=== PATIENT | female | born 1980 | race Caucasian/White ===

== ENCOUNTER 2016-10-12 14:42 | Emergency (ER) | payer OTHER ==
[2016-10-12 14:47] VITALS: BP 127/67; PULSE 81; RESP 20; TEMP 97.8
--- NOTE | 2016-10-12 15:28 | ED ---
General Adult HPI - General Chief complaint: Extremity Problem,Nontraumatic Stated complaint: Numbness in Right Wrist Time Seen by Provider: 10/12/16 15:18 Source: patient, RN notes reviewed Mode of arrival: ambulatory Limitations: no limitations - History of Present Illness Initial comments: This is a 35-year-old female presents with tingling to the fourth and fifth digits of the right hand. Patient states this started at 8:30 this morning. Patient states the pins and needles feeling continues to the ulnar aspect of the right wrist and elbow. Patient states she has been diagnosed with neuropathy and has a history of carpal tunnel but this is different than her normal symptoms. Patient denies any injury to the right upper extremity. Patient denies any headache, nausea/vomiting, dysphagia, dysphasia, head injury. Patient states she has chronic neck pain this is not worse today. Patient denies any recent fever, chills, shortness breath, chest pain, abdominal pain, nausea/vomiting/diarrhea, back pain, hematuria, headache, or visual changes, or any other complaints. - Related Data Home Medications Medication Instructions Recorded Confirmed FLUoxetine HCL [PROzac] 20 mg PO DAILY 03/12/15 12/16/15 hydrOXYzine PAMOATE [Vistaril] 50 mg PO HS 07/26/15 12/16/15 Previous Rx's Medication Instructions Recorded Lurasidone [Latuda] 40 mg PO 1800 #30 tab 11/27/15 traZODone HCL [Desyrel] 200 mg PO HS #60 tab 11/27/15 Ibuprofen [Motrin] 600 mg PO Q6HR PRN #30 tab 12/05/15 Amoxic-Pot Clav 875-125Mg 1 tab PO Q12HR #14 tablet 12/16/15 [Augmentin 875-125] predniSONE 20 mg PO DAILY 5 Days 10/12/16 Allergies Allergy/AdvReac Type Severity Reaction Status Date / Time No Known Allergies Allergy Verified 10/12/16 14:47 Review of Systems ROS Statement: Those systems with pertinent positive or pertinent negative responses have been documented in the HPI. ROS Other: All systems not noted in ROS Statement are negative. Past Medical History Past Medical History: Pulmonary Embolus (PE) Additional Past Medical History / Comment(s): PE, carpal tunnel, neuropathy History of Any Multi-Drug Resistant Organisms: None Reported Past Surgical History: Section, Cholecystectomy, Uterine Ablation Additional Past Surgical History / Comment(s): [place] filter, D&C Past Anesthesia/Blood Transfusion Reactions: No Reported Reaction Past Psychological History: Anxiety, Bipolar, Depression Additional Psychological History / Comment(s): Open with [facility] on an outpatient basis. Marcos, Therapist: Bertha FELDER. Today was patient's first visit. Patient does not know their names. Smoking Status: Current every day smoker Past Alcohol Use History: Occasional Past Drug Use History: None Reported General Exam - General Exam Comments Initial Comments: General: The patient is awake and alert, in no distress, and does not appear acutely ill. Eye: Pupils are equal, round and reactive to light, extra-ocular movements are intact. No nystagmus. There is normal conjunctiva bilaterally. No signs of icterus. Neck: The neck is supple, there is no tenderness or JVD. Cardiovascular: There is a regular rate and rhythm. No murmur, rub or gallop is appreciated. Respiratory: Lungs are clear to auscultation, respirations are non-labored, breath sounds are equal. No wheezes, stridor, rales, or rhonchi. Musculoskeletal: Patient has some exacerbation of the pins and needles feeling in the right fourth and fifth digits with palpation of the cubital tunnel of the right upper extremity. Patient has some tenderness to the medial aspect of the right elbow. Normal ROM, Strength 5/5. Sensation intact. Radial pulses equal bilaterally 2+. Cap refill is normal at less than 2 seconds. Neurological: A&O x 3. CN II-XII intact, There are no obvious motor or sensory deficits. Coordination appears grossly intact. Speech is normal. Skin: Skin is warm and dry and no rashes or lesions are noted. Psychiatric: Cooperative, appropriate mood & affect, normal judgment. Limitations: no limitations Course Vital Signs 10/12/16 14:44 Temperature 97.8 F Pulse Rate 81 Respiratory 20 Rate Blood Pressure 127/67 O2 Sat by Pulse 98 Oximetry Medical Decision Making - Medical Decision Making Is a 35-year-old female presents with the needles feeling to the fourth digits of the right hand. On physical exam patient is neurologically intact. Patient has some exacerbation of the pins and needles feeling in the right fourth and fifth digits with palpation of the cubital tunnel of the right upper extremity. Patient has some tenderness to the medial aspect of the right elbow. Normal ROM, Strength 5/5. Sensation intact. Radial pulses equal bilaterally 2+. Cap refill is normal at less than 2 seconds. Discussed cubital tunnel syndrome with patient. I discussed that patient will be on a short course of steroids. Discussed rest, ice and use of Tylenol and Motrin [id number] for pain. I discussed the patient should follow-up with orthopedics and her primary care physician in the next 1-2 days. Discussed that patient should return to the [facility] for any worsening symptoms or for any further concerns. I discussed return parameters. Patient was receptive to this plan and patient will be discharged home. Disposition Clinical Impression: Cubital tunnel syndrome on right Disposition: HOME SELF-CARE Condition: Good Instructions: Cubital Tunnel Syndrome (ED) Additional Instructions: Please use steroid as prescribed. Please rest, ice and use Tylenol and or Motrin as needed for any pain. Please follow-up with orthopedics and her primary care physician in the next 1-2 days or return to the [facility] for any worsening symptoms or for any further concerns. Prescriptions: predniSONE 20 mg PO DAILY 5 Days Referrals: Alex Babin MD [Primary Care Provider] - 1-2 days Larry Trivedi DO [Doctor of Osteopathic Medicine] - 1-2 days Time of Disposition: 15:51
== END 2016-10-12 15:56 | disposition home or self-care (01) ==
LOC: EC 14:42
DX: G56.21 Lesion of ulnar nerve, right upper limb (principal); M54.2 Cervicalgia; F31.9 Bipolar disorder, unspecified; F41.9 Anxiety disorder, unspecified; F17.200 Nicotine dependence, unspecified, uncomplicated; Z86.711 Personal history of pulmonary embolism; Z79.899 Other long term (current) drug therapy
CPT/HCPCS: 99283

== ENCOUNTER → 2016-10-16 | Outpatient (CLI) | payer OTHER ==
--- NOTE | 2016-10-16 14:49 | XR ---
EXAMINATION TYPE: XR knee limited RT DATE OF EXAM: 10/16/2016 2:45 PM COMPARISON: NONE HISTORY: Right knee pain TECHNIQUE: 2 views right knee FINDINGS: Minimal joint space narrowing is present. No acute fractures are evident. No significant ethel int effusion is evident. IMPRESSION: 1. Suggestion of minimal degenerative joint change.
--- NOTE | 2016-10-16 16:44 | MR ---
EXAMINATION TYPE: MR cervical spine wo con DATE OF EXAM ORDERED: 10/16/2016 4:04 PM HISTORY: M54.2 CERVICALGIA. TECHNOLOGIST HISTORY AT TIME OF EXAM: Neck pain, headaches, no trauma; prior x-rays 2015 on pacs COMPARISON: None. TECHNIQUE: Multiplanar, multiecho imaging of the cervical spine was obtained without contrast on a 1 .5 markos magnet. FINDINGS: Prevertebral soft tissues are normal. There is some loss of normal cervical lordosis which is replaced by mild kyphosis. Alignment is huyen l. Atlantoaxial relationships are normal. There is a normal craniocervical junction. Cord signal is normal. At C2-3 and C3-4, no definite abnormality is seen. At C4-C5, there is mild disc space loss. The intervertebral foramina are well maintained. There is a minimal, diffuse disc displacement. The facet and uncovertebral joints are normal. At C5-C6, there is mild disc space loss. The intervertebral foramina are well maintained. There is a diffuse disc displacement mildly deforming the thecal sac with cord contact but without compression. The facet and uncovertebral joints are normal. At C6-C7, the intervertebral foramina are well maintained. There is a minimal right paracentral disc protrusion deforming the thecal sac without cord contact. The facet and uncovertebral joints are unre markable. At C7-T1, no definite abnormality is seen. IMPRESSION: 1. MILD DEGENERATIVE DISC DISEASE EXTENDING FROM C4-5 THROUGH C6-7. 2. TINY RIGHT PARACENTRAL DISC PROTRUSION, C6-7 DEFORMING THE THECAL SAC WITHOUT CORD CONTACT.
== END | disposition home or self-care (01) ==
LOC: RADMRIMAIN 14:36
PROVIDERS: ATTEND Psychiatry & Neurology Pain Medicine
DX: M50.223 Other cervical disc displacement at C6-C7 level (principal); M50.321 Other cervical disc degeneration at C4-C5 level; M25.561 Pain in right knee
CPT/HCPCS: 72141

== ENCOUNTER 2016-10-24 21:25 | Emergency (ER) | payer OTHER ==
[2016-10-24 21:37] VITALS: TEMP 98.2
[2016-10-24] MEDS ORDERED: KETOROLAC 30 MG/ML 1 ML VIAL IVP STA (22:21)
[2016-10-24] MEDS ORDERED: diphenhydrAMINE 50 MG/ML 1 ML VIAL IVP STA (22:21)
[2016-10-24] MEDS ORDERED: METOCLOPRAMIDE 5 MG/ML 2 ML VIAL IVP STA (22:21)
--- NOTE | 2016-10-24 23:35 | ED ---
General Adult HPI - General Chief complaint: Headache Stated complaint: migraine & neck pain Time Seen by Provider: 10/24/16 21:45 Source: patient Mode of arrival: ambulatory Limitations: no limitations - History of Present Illness Initial comments: 35-year-old obese female presented for evaluation of headache that started at 4:30. She states the headache is located on the right side of her head from the frontal to the parietal and occipital areas. She takes Imitrex and took 2 those without relief today. Her headache is similar to all of her prior headaches with the exception that this one is lingering longer than before. She has had previous headaches that are gone this bad requiring her to come to the ED for of her pain. She states that she will usually requires the migraine headache and then she can be discharged. She denies any vision changes, ataxia, nausea, vomiting, fevers, chills. She states that she did not drive here today and that she would be having a ride home. - Related Data Home Medications Medication Instructions Recorded Confirmed FLUoxetine HCL [PROzac] 20 mg PO DAILY 03/12/15 10/24/16 Albuterol Inhaler [Ventolin Hfa 2 puff INHALATION RT-QID PRN 10/24/16 10/24/16 Inhaler] HYDROcodone/APAP 5-325MG [[place] 1 tab PO DAILY PRN 10/24/16 10/24/16 5-325] Ibuprofen [Motrin] 800 mg PO Q8HR PRN 10/24/16 10/24/16 Ipratropium [place] [Atrovent Hfa] 2 puff INHALATION RT-QID 10/24/16 10/24/16 Lurasidone [Latuda] 40 mg PO DAILY 10/24/16 10/24/16 Oxybutynin Chloride [Ditropan] 5 mg PO DAILY 10/24/16 10/24/16 SUMAtriptan SUCCINATE [Imitrex] 50 mg PO Q8H PRN 10/24/16 10/24/16 Verapamil HCl [Verapamil ER] 120 mg PO HS 10/24/16 10/24/16 Previous Rx's Medication Instructions Recorded traZODone HCL [Desyrel] 200 mg PO HS #60 tab 11/27/15 Allergies Allergy/AdvReac Type Severity Reaction Status Date / Time No Known Allergies Allergy Verified 02/23/17 22:02 Review of Systems ROS Statement: Those systems with pertinent positive or pertinent negative responses have been documented in the HPI. ROS Other: All systems not noted in ROS Statement are negative. Constitutional: Denies: fever, chills Eyes: Denies: eye pain, eye discharge, vision change ENT: Denies: ear pain, throat pain Respiratory: Denies: cough, dyspnea Cardiovascular: Denies: chest pain, palpitations Endocrine: Denies: fatigue Gastrointestinal: Denies: abdominal pain, nausea, vomiting Genitourinary: Denies: urgency, dysuria Musculoskeletal: Reports: myalgia. Denies: back pain Skin: Denies: rash, lesions Neurological: Reports: headache. Denies: weakness, numbness, paresthesias, confusion, abnormal gait, vertigo Psychiatric: Denies: anxiety, depression Past Medical History Past Medical History: Pulmonary Embolus (PE) Additional Past Medical History / Comment(s): PE, carpal tunnel, neuropathy History of Any Multi-Drug Resistant Organisms: None Reported Past Surgical History: Section, Cholecystectomy, Uterine Ablation Additional Past Surgical History / Comment(s): [place] filter, D&C Past Anesthesia/Blood Transfusion Reactions: No Reported Reaction Past Psychological History: Anxiety, Bipolar, Depression Additional Psychological History / Comment(s): Open with [facility] on an outpatient basis. Marcos, Therapist: Bertha FELDER. Today was patient's first visit. Patient does not know their names. Smoking Status: Current every day smoker Past Alcohol Use History: Occasional Past Drug Use History: None Reported General Exam Limitations: no limitations General appearance: alert, in no apparent distress Head exam: Present: atraumatic, normocephalic Eye exam: Present: normal appearance, PERRL, EOMI. Absent: scleral icterus, conjunctival injection, nystagmus, periorbital swelling, periorbital tenderness ENT exam: Present: normal exam, normal oropharynx, mucous membranes moist Neck exam: Present: normal inspection. Absent: tenderness Respiratory exam: Present: normal lung sounds bilaterally. Absent: respiratory distress, wheezes, rales Cardiovascular Exam: Present: regular rate, normal rhythm GI/Abdominal exam: Present: soft. Absent: distended Rectal exam: Present: deferred Extremities exam: Present: normal inspection, full ROM Back exam: Present: normal inspection, full ROM Neurological exam: Present: alert, oriented X3, CN II-XII intact, normal gait, reflexes normal. Absent: abnormal gait, motor sensory deficit Psychiatric exam: Present: normal affect, normal mood Skin exam: Present: warm, dry, intact Course Vital Signs 10/24/16 10/24/16 21:35 23:41 Temperature 98.2 F Pulse Rate 68 70 Respiratory 20 14 Rate Blood Pressure 138/70 132/72 O2 Sat by Pulse 96 100 Oximetry Medical Decision Making - Medical Decision Making 35-year-old female with past medical history of migraine headaches presented for evaluation of intractable headache despite taking 2 Imitrex at home. She states that she will occasionally have a headache that is not responsive to her treatments require come to the ED for migraine cocktail. She states that this current headache is similar to those previous ones and that there are no exceptional features. She denies any visual changes, ataxia, frequent falling. Physical examination reveals cranial nerves II through XII intact without focal neurologic deficit, he was equal round and reactive to light and accommodation, normal gait and station. The patient was provided with Toradol, Benadryl, and Reglan and on reevaluation had complete resolution of her headache. She was advised to follow-up with her primary care physician and neurologist but to return to this facility if her symptoms should worsen or persist including but not limited to physician changes, ataxia, lightheadedness/ dizziness, intractable migraine, focal weakness, seizures, altered consciousness , altered mental status. She acknowledged an understanding of this information and agreed with this plan of care. Disposition Clinical Impression: Headache Disposition: HOME SELF-CARE Condition: Stable Instructions: Acute Headache (ED) Referrals: Alex Babin MD [Primary Care Provider] - 1-2 days Time of Disposition: 23:35
[2016-10-24 23:42] VITALS: BP 132/72; PULSE 70; RESP 14
== END 2016-10-24 23:41 | disposition home or self-care (01) ==
LOC: EC 21:25
DX: R51 Headache (principal); F31.9 Bipolar disorder, unspecified; F41.9 Anxiety disorder, unspecified; F17.200 Nicotine dependence, unspecified, uncomplicated; Z79.899 Other long term (current) drug therapy; Z86.711 Personal history of pulmonary embolism
CPT/HCPCS: 96374 ×2; 96375 ×2; 99283 ×2; J1200; J2765; J1885

== ENCOUNTER 2016-11-16 18:21 | Emergency (ER) | payer OTHER ==
[2016-11-16 18:35] VITALS: BP 130/68; PULSE 77; RESP 16; TEMP 97.9
--- NOTE | 2016-11-16 18:46 | ED ---
ENT HPI - General Chief complaint: ENT Stated complaint: rt ear pain, crackling Time Seen by Provider: 11/16/16 18:32 Source: patient, RN notes reviewed Mode of arrival: ambulatory Limitations: no limitations - History of Present Illness Initial comments: 35-year-old female presents to the emergency department with a chief complaint of a cracking and pain to the right ear. At this time patient states this is painful. It is no tenderness is no fever there's no cough cold runny nose. Patient denies any recent fever, chills, shortness of breath, chest pain, back pain, abdominal pain, nausea vomiting, numbness or tingling, dysuria or hematuria, constipation or diarrhea, headaches or visual changes, or any other current symptoms. - Related Data Home Medications Medication Instructions Recorded Confirmed FLUoxetine HCL [PROzac] 20 mg PO DAILY 03/12/15 10/24/16 Albuterol Inhaler [Ventolin Hfa 2 puff INHALATION RT-QID PRN 10/24/16 10/24/16 Inhaler] HYDROcodone/APAP 5-325MG [[place] 1 tab PO DAILY PRN 10/24/16 11/16/16 5-325] Ibuprofen [Motrin] 800 mg PO Q8HR PRN 10/24/16 11/16/16 Ipratropium [place] [Atrovent Hfa] 2 puff INHALATION RT-QID 10/24/16 11/16/16 Lurasidone [Latuda] 40 mg PO DAILY 10/24/16 11/16/16 Oxybutynin Chloride [Ditropan] 5 mg PO DAILY 10/24/16 11/16/16 SUMAtriptan SUCCINATE [Imitrex] 50 mg PO Q8H PRN 10/24/16 11/16/16 Verapamil HCl [Verapamil ER] 120 mg PO HS 10/24/16 11/16/16 Previous Rx's Medication Instructions Recorded traZODone HCL [Desyrel] 200 mg PO HS #60 tab 11/27/15 Allergies Allergy/AdvReac Type Severity Reaction Status Date / Time No Known Allergies Allergy Verified 11/16/16 18:35 Review of Systems ROS Statement: Those systems with pertinent positive or pertinent negative responses have been documented in the HPI. ROS Other: All systems not noted in ROS Statement are negative. Past Medical History Past Medical History: Pulmonary Embolus (PE) Additional Past Medical History / Comment(s): PE, carpal tunnel, neuropathy History of Any Multi-Drug Resistant Organisms: None Reported Past Surgical History: Section, Cholecystectomy, Uterine Ablation Additional Past Surgical History / Comment(s): [place] filter, D&C Past Anesthesia/Blood Transfusion Reactions: No Reported Reaction Past Psychological History: Anxiety, Bipolar, Depression Additional Psychological History / Comment(s): Open with [facility] on an outpatient basis. [place], Therapist: Bertha FELDER. Today was patient's first visit. Patient does not know their names. Smoking Status: Current every day smoker Past Alcohol Use History: Occasional Past Drug Use History: None Reported General Exam Limitations: no limitations General appearance: alert, in no apparent distress Eye exam: Present: normal appearance, PERRL, EOMI. Absent: scleral icterus, conjunctival injection, periorbital swelling ENT exam: Present: normal oropharynx, normal external ear exam. Absent: TM's normal bilaterally (Patient does appear to involve the right ear canal) Neck exam: Present: normal inspection. Absent: tenderness, meningismus, lymphadenopathy Respiratory exam: Present: normal lung sounds bilaterally. Absent: respiratory distress, wheezes, rales, rhonchi, stridor Cardiovascular Exam: Present: regular rate, normal rhythm, normal heart sounds. Absent: systolic murmur, diastolic murmur, rubs, gallop, clicks Psychiatric exam: Present: normal affect, normal mood Skin exam: Present: warm, dry, intact, normal color. Absent: rash Course Vital Signs 11/16/16 18:34 Temperature 97.9 F Pulse Rate 77 Respiratory 16 Rate Blood Pressure 130/68 O2 Sat by Pulse 97 Oximetry Medical Decision Making - Medical Decision Making 35-year-old female presents emergency Department chief complaint of what appears to be an insect the radius suspicious for a bedbug. This time we did remove it with ear drainage. At this time we did discuss care and follow-up. We discussed return parameters. We determined intact after exam. Patient will be discharged home. Disposition Clinical Impression: Nonvenomous insect bite of right ear, Infestation by bed bug Disposition: HOME SELF-CARE Condition: Stable Instructions: Bed Bugs (ED) Additional Instructions: Please use medication as discussed. Please follow up with family doctor if symptoms have not improved over the next two days. Please return to the emergency room if your symptoms increase or worsen or for any other concerns. Referrals: Alex Babin MD [Primary Care Provider] - 1-2 days Time of Disposition: 19:00
== END 2016-11-16 19:13 | disposition home or self-care (01) ==
LOC: EC 18:21
DX: S00.461A Insect bite (nonvenomous) of right ear, initial encounter (principal); B88.8 Other specified infestations; F17.200 Nicotine dependence, unspecified, uncomplicated; Z86.711 Personal history of pulmonary embolism; Z79.899 Other long term (current) drug therapy; W57.XXXA Bitten or stung by nonvenomous insect and other nonvenomous arthropods, initial encounter
CPT/HCPCS: 99282

== ENCOUNTER → 2016-12-24 | Outpatient (CLI) | payer OTHER ==
[2016-12-24 16:57] LABS: HCG,Quantitative Serum <2.4 mIU/mL
--- NOTE | 2016-12-25 13:00 | US ---
EXAMINATION TYPE: US pelvis complete transvag DATE OF EXAM: 12/24/2016 4:02 PM COMPARISON: NONE CLINICAL HISTORY: N93.8 Dysfunctional uterine bleeding. TECHNIQUE: Transvaginal (TV) and Transabdominal (TA) Date of LMP: 12/23/2016 EXAM MEASUREMENTS: Uterus: 9.9 x 3.4 x 4.7 cm Endometrial Stripe: unable to identify cm Right Ovary: not identified cm Left Ovary: 2.2 x 2.2 x 3.1 cm 1. Uterus: Anteverted not well visualized 2. Endometrium: not identified, 3. Right Ovary: not identified 4. Left Ovary: wnl 5. Bilateral Adnexa: wnl 6. Posterior cul-de-sac: no free fluid Basically a non diagnostic exam, patient is morbidly obese. Transvaginal was attempted, but unable to visualize uterus. IMPRESSION: 1. Limited examination. Obvious abnormality is not identified.
== END ==
LOC: RADUSWWP 15:24
PROVIDERS: ATTEND Obstetrics & Gynecology
DX: N93.8 Other specified abnormal uterine and vaginal bleeding (principal)
CPT/HCPCS: 76830; 76856; 84443; 84702

== ENCOUNTER 2017-01-31 20:35 | Emergency (ER) | payer OTHER ==
[2017-01-31] MEDS ORDERED: ASPIRIN 81 MG CHEW PO STA (21:00)
--- NOTE | 2017-01-31 21:04 | ED ---
Chest Pain HPI - General Chief Complaint: Chest Pain Stated Complaint: chest & back pain Time Seen by Provider: 01/31/17 20:39 Source: patient, family Mode of arrival: wheelchair Limitations: no limitations - History of Present Illness Initial Comments: This patient is a 36-year-old woman who presents to be evaluated for left-sided chest pain that developed sometime around 8 this morning, which happened to be about 15 minutes after she had taken her morning medicine. The patient states that she was not exerting herself at this time. She describes the pain as sharp , constant, moderate intensity. She has noted that it seems worse if she takes a deep breath then. She has not noted any relieving factors. There have been no associated symptoms, including no diaphoresis, dyspnea, nausea or vomiting, lightheadedness, syncope or palpitations. MD Complaint: chest pain Onset/Timin -: hour(s) Onset: during rest Pain Location: left chest Pain Radiation: back Severity: moderate Quality: sharp Consistency: constant Improves With: nothing Worsens With: inspiration Treatments Prior to Arrival: none - Related Data Home Medications Medication Instructions Recorded Confirmed HYDROcodone/APAP 5-325MG [[place] 1 tab PO DAILY PRN 10/24/16 01/31/17 5-325] Ipratropium [place] [Atrovent Hfa] 2 puff INHALATION RT-Q4H 10/24/16 01/31/17 Oxybutynin Chloride [Ditropan] 5 mg PO DAILY 10/24/16 01/31/17 SUMAtriptan SUCCINATE [Imitrex] 50 mg PO Q8H PRN 10/24/16 01/31/17 Verapamil HCl [Verapamil ER] 120 mg PO HS 10/24/16 01/31/17 Cholecalciferol [Vitamin D3] 1,000 unit PO DAILY 01/31/17 01/31/17 Cyclobenzaprine [Flexeril] 5 mg PO TID PRN 01/31/17 01/31/17 FLUoxetine HCL [PROzac] 40 mg PO DAILY 01/31/17 01/31/17 Lurasidone [Latuda] 80 mg PO DAILY 01/31/17 01/31/17 Previous Rx's Medication Instructions Recorded traZODone HCL [Desyrel] 200 mg PO HS #60 tab 11/27/15 Ibuprofen 800 mg PO TID PRN #20 tablet 01/31/17 Allergies Allergy/AdvReac Type Severity Reaction Status Date / Time No Known Allergies Allergy Verified 01/31/17 21:04 Review of Systems ROS Statement: Those systems with pertinent positive or pertinent negative responses have been documented in the HPI. ROS Other: All systems not noted in ROS Statement are negative. Constitutional: Denies: fever, chills Respiratory: Denies: cough, dyspnea Cardiovascular: Reports: chest pain. Denies: palpitations, orthopnea, edema, syncope Gastrointestinal: Denies: abdominal pain, vomiting, diarrhea, melena, hematochezia Genitourinary: Denies: dysuria, hematuria Musculoskeletal: Denies: back pain Skin: Denies: rash Neurological: Denies: headache, weakness, numbness EKG Findings - EKG Comments: EKG Findings:: Possible old anterior infarct - EKG Results: EKG: interpreted by SIMEON, sinus rhythm (Rate 77 bpm), normal axis, normal QRS, normal ST/T EKG shows: sinus rhythm Past Medical History Past Medical History: Pulmonary Embolus (PE) Additional Past Medical History / Comment(s): PE, carpal tunnel, neuropathy History of Any Multi-Drug Resistant Organisms: None Reported Past Surgical History: Section, Cholecystectomy, Uterine Ablation Additional Past Surgical History / Comment(s): Andreas filter, D&C Past Anesthesia/Blood Transfusion Reactions: No Reported Reaction Past Psychological History: Anxiety, Bipolar, Depression Additional Psychological History / Comment(s): Open with [facility] on an outpatient basis. [place], Therapist: Bertha FELDER. Today was patient's first visit. Patient does not know their names. Smoking Status: Current every day smoker Past Alcohol Use History: Occasional Past Drug Use History: None Reported General Exam Limitations: no limitations General appearance: alert, in no apparent distress, obese Head exam: Present: atraumatic, normocephalic Eye exam: Present: normal appearance. Absent: scleral icterus, conjunctival injection Neck exam: Present: normal inspection Respiratory exam: Present: normal lung sounds bilaterally, chest wall tenderness. Absent: respiratory distress, wheezes, rales, rhonchi, stridor, accessory muscle use Cardiovascular Exam: Present: regular rate, normal rhythm, normal heart sounds. Absent: systolic murmur, diastolic murmur, rubs, gallop GI/Abdominal exam: Present: soft. Absent: distended, tenderness, guarding, rebound, mass, hernia Extremities exam: Present: normal inspection, normal capillary refill. Absent: pedal edema, calf tenderness Back exam: Present: normal inspection. Absent: CVA tenderness (R), CVA tenderness (L) Neurological exam: Present: alert Skin exam: Present: warm, dry, intact, normal color. Absent: rash Course Vital Signs 01/31/17 01/31/17 01/31/17 20:38 21:32 22:00 Temperature 97.7 F 98.8 F Pulse Rate 94 61 72 Respiratory 16 16 18 Rate Blood Pressure 140/86 120/72 123/70 O2 Sat by Pulse 98 99 94 L Oximetry Disposition Clinical Impression: Chest wall pain Disposition: HOME SELF-CARE Condition: Good Instructions: Chest Pain (ED) Prescriptions: Ibuprofen 800 mg PO TID PRN #20 tablet PRN Reason: Pain Referrals: Alex Babin MD [Primary Care Provider] - 1-2 days
[2017-01-31] MEDS ORDERED: KETOROLAC 30 MG/ML 1 ML VIAL IVP STA (21:23)
[2017-01-31 21:26] LABS: Basophils # (A) 0.1 k/uL (0-0.2); Basophils % (A) 1 %; CH 31.9; CHCM 32.7; Eosinophils # (A) 0.3 k/uL (0-0.7); Eosinophils % (A) 4 %; HCT 43.1 % (34.0-46.0); HDW 2.44; HGB 13.9 gm/dL (11.4-16.0); Luc # (Auto) 0.13; Luc % (Auto) 2; Lymphocytes # (A) 2.5 k/uL (1.0-4.8); Lymphocytes % (A) 30 %; MCH 31.5 pg (25.0-35.0); MCHC 32.3 g/dL (31.0-37.0); MCV 97.8 fL (80.0-100.0); Mean Platelet Volume 6.4; Monocytes # (A) 0.4 k/uL (0-1.0); Monocytes % (A) 5 %; Neutrophils # (A) 4.9 k/uL (1.3-7.7); Neutrophils % (A) 59 %; RBC 4.41 m/uL (3.80-5.40); RDW 14.1 % (11.5-15.5); WBC 8.3 k/uL (3.8-10.6); WBC (Perox) 8.61
[2017-01-31 21:29] LABS: Appearance,Urine Cloudy (Clear); Bacteria,Urine Rare /hpf; Bilirubin,Urine Negative (Negative); Glucose,Urine (UA) Negative (Negative); Ketones,Urine Negative (Negative); Leukocyte Esterase,Urine Small (Negative); Mucus,Urine Rare /hpf; Nitrite,Urine Negative (Negative); PH, Urine 6.5 (5.0-8.0); Particle Count 8315; Protein,Urine Negative (Negative); RBC,Urine 1 /hpf (0-5); Specific Gravity,Urine 1.021 (1.001-1.035); Squamous Epithelial Cell,Urine 9 /hpf (0-4); UA Billing (MACRO vs. MICRO) MICRO; WBC,Urine 2 /hpf (0-5)
[2017-01-31 21:37] LABS: ALT 36 U/L (9-52); AST 21 U/L (14-36); Alkaline Phosphatase 65 U/L (38-126); Amylase 51 U/L (30-110); Anion Gap 7 mmol/L; Blood Urea Nitrogen 15 mg/dL (7-17); Calcium 9.1 mg/dL (8.4-10.2); Carbon Dioxide 28 mmol/L (22-30); Chloride 105 mmol/L (98-107); Glucose 80 mg/dL (74-99); Magnesium 1.8 mg/dL (1.6-2.3); Non-African American GFR(MDRD) >60 (>60 ml/min/1.73 sqM); Potassium 4.2 mmol/L (3.5-5.1); Sodium 140 mmol/L (137-145); Total Bilirubin 0.2 mg/dL (0.2-1.3); Total Protein 6.3 g/dL (6.3-8.2)
--- NOTE | 2017-01-31 21:41 | XR ---
EXAMINATION TYPE: XR chest 1V portable DATE OF EXAM: 01/31/2017 COMPARISON: 05/10/2015 INDICATION: Chest pain TECHNIQUE: Single frontal view of the chest is obtained. FINDINGS: The heart size is normal. The pulmonary vasculature is normal. The lungs are clear. IMPRESSION: 1. No acute pulmonary process.
[2017-01-31 21:43] LABS: INR 0.9 (<1.1); Partial Thromboplastin Time 22.7 sec (22.0-30.0); Prothrombin Time 9.7 sec (9.0-12.0)
[2017-01-31 22:15] VITALS: RESP 18
[2017-01-31] MEDS ORDERED: RX INFO: IV CONTRAST WAS GIVEN 1 EACH MISC MISCELLANE PRN (22:34)
--- NOTE | 2017-01-31 23:06 | CT ---
EXAM: CT Angiography Chest With Intravenous Contrast CLINICAL HISTORY: Pain, rule out PE TECHNIQUE: Axial computed tomographic angiography images of the chest with intravenous contrast using pulmonary embolism protocol. CTDI is 7.50, 65. 30, 20.80 mGy and DLP is 725.40 mGy-cm. This CT exam was performed using one or more of the following dose reduction techniques: automated exposure control, adjustment of the mA and/or kV according to patient size, and/or use of iterative reconstruction technique. MIP reconstructed images were created and reviewed. COMPARISON: 05/10/2015 FINDINGS: Pulmonary arteries: No pulmonary embolus. Aorta: No acute findings. No thoracic aortic aneurysm. Lungs: Unremarkable. No mass. No consolidation. Pleural space: Unremarkable. No significant effusion. No pneumothorax. Heart: Unremarkable. No cardiomegaly. No significant pericardial effusion. Bones/joints: No acute fracture. Soft tissues: Unremarkable. Lymph nodes: Unremarkable. No enlarged lymph nodes. IMPRESSION: No pulmonary embolus.
[2017-01-31 23:38] VITALS: BP 148/81; PULSE 69; TEMP 97.4
== END 2017-01-31 23:30 | disposition home or self-care (01) ==
LOC: EC 20:35
DX: R07.89 Other chest pain (principal); M54.9 Dorsalgia, unspecified; F31.9 Bipolar disorder, unspecified; F41.9 Anxiety disorder, unspecified; F17.200 Nicotine dependence, unspecified, uncomplicated; Z79.899 Other long term (current) drug therapy; Z86.711 Personal history of pulmonary embolism
CPT/HCPCS: 36415; 93005; 85379; 80053; 82150; 83690; 83735; 84484; 85025; 85610; 85730; 81001; 71010; 71275; 99285; 96374; Q9967; J1885

== ENCOUNTER → 2017-03-11 | Outpatient (CLI) | payer OTHER ==
--- NOTE | 2017-03-11 10:05 | MM ---
Reason for exam: screening (asymptomatic). Baseline mammogram. History: Took hormonal contraceptives for 9 years beginning at age 22. Physical Findings: Nurse did not find any significant physical abnormalities on exam. MG Screening Mammo w CAD Bilateral CC and MLO view(s) were taken. There are scattered fibroglandular densities. Finding: There are few typically benign round calcifications in both breasts. There is no discrete abnormality. These results were verbally communicated with the patient and result sheet given to the patient on 03/11/17. ASSESSMENT: Benign, BI-RAD 2 RECOMMENDATION: Routine screening mammogram of both breasts at age 40.
== END | disposition home or self-care (01) ==
LOC: RADMAMWWP 08:49
PROVIDERS: ATTEND Obstetrics & Gynecology
DX: Z12.31 Encounter for screening mammogram for malignant neoplasm of breast (principal)

== ENCOUNTER 2017-03-14 22:52 | Emergency (ER) | payer OTHER ==
[2017-03-14] MEDS ORDERED: KETOROLAC 60 MG/2 ML VIAL IM STA (23:39)
[2017-03-14] MEDS ORDERED: ORPHENADRINE 30 MG/ML 2 ML VIAL IM STA (23:39)
--- NOTE | 2017-03-15 00:24 | XR ---
EXAM: XR Cervical Spine, 2 or 3 Views CLINICAL HISTORY: Reason: Left-sided neck pain TECHNIQUE: Frontal and lateral views of the cervical spine. COMPARISON: 08/07/15 plain films, 10/16/16 MRI. FINDINGS: Vertebrae: Vertebral body heights and alignment are maintained from bases skull to C7-T1, that itself is barely visible on the lateral view. There is no acute fracture seen. Disc space heights are maintained. Disc spaces: See above. Soft tissues: The prevertebral soft tissues are within normal limits. Small circular radiodense foci are seen overlying the upper anterior chest soft tissues, presumably external to the patient and/or related to clothing. IMPRESSION: No significant change including no acute fracture or change in alignment is seen, as above.
--- NOTE | 2017-03-15 00:27 | ED ---
Neck Injury/Pain HPI - General Chief Complaint: Neck Pain/Injury Stated Complaint: neck pain Time Seen by Provider: 03/14/17 23:07 Mode of arrival: ambulatory Limitations: no limitations - Related Data Home Medications Medication Instructions Recorded Confirmed HYDROcodone/APAP 5-325MG [[place] 1 tab PO BID 10/24/16 03/14/17 5-325] Ipratropium [place] [Atrovent Hfa] 2 puff INHALATION RT-QID 10/24/16 03/14/17 Oxybutynin Chloride [Ditropan] 5 mg PO BID 10/24/16 03/14/17 SUMAtriptan SUCCINATE [Imitrex] 50 mg PO BID PRN 10/24/16 03/14/17 Verapamil HCl [Verapamil ER] 120 mg PO HS 10/24/16 03/14/17 Cholecalciferol [Vitamin D3] 1,000 unit PO DAILY 01/31/17 03/14/17 FLUoxetine HCL [PROzac] 40 mg PO DAILY 01/31/17 03/14/17 Lurasidone [Latuda] 80 mg PO DAILY 01/31/17 03/14/17 Cyclobenzaprine [Flexeril] 10 mg PO TID 03/14/17 03/14/17 Hydrochlorothiazide [Hydrodiuril] 12.5 mg PO DAILY 03/14/17 03/14/17 Ibuprofen 800 mg PO TID 03/14/17 03/14/17 Previous Rx's Medication Instructions Recorded traZODone HCL [Desyrel] 200 mg PO HS #60 tab 11/27/15 Cyclobenzaprine [Flexeril] 10 mg PO TID #12 tab 03/15/17 Allergies Allergy/AdvReac Type Severity Reaction Status Date / Time No Known Allergies Allergy Verified 03/14/17 23:00 Review of Systems ROS Statement: Those systems with pertinent positive or pertinent negative responses have been documented in the HPI. ROS Other: All systems not noted in ROS Statement are negative. Past Medical History Past Medical History: Pulmonary Embolus (PE) Additional Past Medical History / Comment(s): PE, carpal tunnel, neuropathy, arthritis in neck History of Any Multi-Drug Resistant Organisms: None Reported Past Surgical History: Section, Cholecystectomy, Uterine Ablation Additional Past Surgical History / Comment(s): Andreas filter, D&C Past Anesthesia/Blood Transfusion Reactions: No Reported Reaction Past Psychological History: Anxiety, Bipolar, Depression Smoking Status: Current every day smoker Past Alcohol Use History: Occasional Past Drug Use History: None Reported General Exam Limitations: no limitations Course Vital Signs 03/14/17 22:57 Temperature 98.9 F Pulse Rate 90 Respiratory 18 Rate Blood Pressure 134/91 O2 Sat by Pulse 95 Oximetry Disposition Clinical Impression: Neck pain Disposition: HOME SELF-CARE Condition: Good Instructions: Cervical Strain (ED) Additional Instructions: Patient was to apply heat and ice to her back and neck. Return to emergency department if any alarming signs or symptoms occur. Recommended following up with a quality measurement specialist. Prescriptions: Cyclobenzaprine [Flexeril] 10 mg PO TID #12 tab Referrals: Alex Babin MD [Primary Care Provider] - 1-2 days Terrie Gregory PAC [PHYSICIAN [employer] [employer]] - 1-2 days Time of Disposition: 00:26
[2017-03-15 00:41] VITALS: BP 101/56; PULSE 72; RESP 16; TEMP 97.1
== END 2017-03-15 00:48 | disposition home or self-care (01) ==
LOC: EC 22:52
DX: M54.2 Cervicalgia (principal); M19.90 Unspecified osteoarthritis, unspecified site; G62.9 Polyneuropathy, unspecified; F31.9 Bipolar disorder, unspecified; F41.9 Anxiety disorder, unspecified; F17.200 Nicotine dependence, unspecified, uncomplicated; Z79.899 Other long term (current) drug therapy; Z79.1 Long term (current) use of non-steroidal anti-inflammatories (NSAID); Z79.891 Long term (current) use of opiate analgesic
CPT/HCPCS: 72040; 99283; 96372 ×2; J2360; J1885

== ENCOUNTER → 2017-04-10 | Outpatient (CLI) | payer OTHER ==
--- NOTE | 2017-04-10 09:03 | XR ---
EXAMINATION TYPE: XR knee complete bilateral DATE OF EXAM: 04/10/2017 CLINICAL HISTORY: Chronic bilateral knee pain TECHNIQUE: Three views of the bilateral knees are obtained. COMPARISON: Right knee x-ray October 16, 2016. FINDINGS: There is no acute fracture/dislocation evident in either knee. There is mild to moderate t ricompartment joint space loss most pronounced medial tibiofemoral and patellofemoral compartments in both knees. No significant spurring is seen. The overlying soft tissue appears unremarkable. IMPRESSION: There is some fairly symmetric mild to moderate tricompartment joint space loss.
== END | disposition home or self-care (01) ==
LOC: RADXRMAIN 08:41
PROVIDERS: ATTEND Internal Medicine
DX: M25.861 Other specified joint disorders, right knee (principal); M25.862 Other specified joint disorders, left knee; M25.561 Pain in right knee; M25.562 Pain in left knee

== ENCOUNTER 2017-04-19 19:47 | Emergency (ER) | payer OTHER ==
[2017-04-19 19:57] VITALS: RESP 20; TEMP 99.3
[2017-04-19] MEDS ORDERED: KETOROLAC 30 MG/ML 1 ML VIAL IVP STA (19:58)
--- NOTE | 2017-04-19 20:01 | ED ---
Chest Pain HPI - General Source: patient, RN notes reviewed Mode of arrival: EMS - History of Present Illness MD Complaint: chest pain <Jimmy Garcia - Last Filed: 04/19/17 20:51> <Jimmy Pool - Last Filed: 04/19/17 23:48> - General Chief Complaint: Chest Pain Stated Complaint: Chest Pain Time Seen by Provider: 04/19/17 19:47 - History of Present Illness Initial Comments: This is a 36-year-old female history of pulmonary embolus was a she had the onset about 30 minutes prior to admission of a stabbing sharp pain to her back and a dull achy-type pain to the anterior chest. She states that she seemed to go from the chest to the back. It was 8/10 severity increases with certain movements not necessarily with breathing. She states it feels similar to the pulmonary embolism she had 2014. She currently is not on blood thinners she does have a Xangati filter in. Additionally she is a smoker she states she' s been smoking since she was 11 years old. She denies any fevers chills nausea vomiting sweats or other symptoms at this time. She was brought in by EMS. ( Jimmy Garcia) - Related Data Home Medications Medication Instructions Recorded Confirmed HYDROcodone/APAP 5-325MG [[place] 1 tab PO BID 10/24/16 04/19/17 5-325] Ipratropium [place] [Atrovent Hfa] 2 puff INHALATION RT-QID 10/24/16 04/19/17 SUMAtriptan SUCCINATE [Imitrex] 50 mg PO BID PRN 10/24/16 04/19/17 Verapamil HCl [Verapamil ER] 120 mg PO HS 10/24/16 04/19/17 Ibuprofen 800 mg PO TID 03/14/17 04/19/17 FLUoxetine HCL [PROzac] 20 mg PO DAILY 04/19/17 04/19/17 Furosemide [Lasix] 20 mg PO DAILY 04/19/17 04/19/17 Latanoprost [Xalatan 0.005%] 1 drop BOTH EYES HS 04/19/17 04/19/17 Lurasidone HCl [Latuda] 120 mg PO HS 04/19/17 04/19/17 Potassium Chloride ER [K-Dur 10] 10 meq PO DAILY 04/19/17 04/19/17 Previous Rx's Medication Instructions Recorded traZODone HCL [Desyrel] 200 mg PO HS #60 tab 11/27/15 Cyclobenzaprine [Flexeril] 10 mg PO TID #12 tab 03/15/17 Azithromycin [Zithromax Z-pack] 0 mg PO DIRECTED #6 tab 04/19/17 Allergies Allergy/AdvReac Type Severity Reaction Status Date / Time No Known Allergies Allergy Verified 04/19/17 20:10 Review of Systems ROS Other: All systems not noted in ROS Statement are negative. <Jimmy Garica - Last Filed: 04/19/17 20:51> ROS Other: All systems not noted in ROS Statement are negative. <Jimmy Pool - Last Filed: 04/19/17 23:48> ROS Statement: Those systems with pertinent positive or pertinent negative responses have been documented in the HPI. EKG Findings - EKG Results: EKG: interpreted by ERMD, sinus rhythm (Sinus rhythm rate 97. Interval 148 QRS duration 80 daily since QTC of 372/[address]-T wave changes this does appear to be a normal EKG.) <Jimmy Garcia - Last Filed: 04/19/17 20:51> Past Medical History Past Medical History: Pulmonary Embolus (PE) Additional Past Medical History / Comment(s): PE, carpal tunnel, neuropathy, arthritis in neck History of Any Multi-Drug Resistant Organisms: None Reported Past Surgical History: Section, Cholecystectomy, Uterine Ablation Additional Past Surgical History / Comment(s): Nedrow filter, D&C Past Anesthesia/Blood Transfusion Reactions: No Reported Reaction Past Psychological History: Anxiety, Bipolar, Depression Smoking Status: Current every day smoker Past Alcohol Use History: Occasional Past Drug Use History: None Reported <Jimmy Garcia - Last Filed: 04/19/17 20:51> General Exam General appearance: alert, in no apparent distress Head exam: Present: atraumatic, normocephalic, normal inspection Eye exam: Present: normal appearance, PERRL, EOMI. Absent: scleral icterus, conjunctival injection, periorbital swelling ENT exam: Present: normal exam, mucous membranes moist Neck exam: Present: normal inspection. Absent: tenderness, meningismus, lymphadenopathy Respiratory exam: Present: normal lung sounds bilaterally, chest wall tenderness (Tenderness palpation of the anterior chest wall with costochondral margins has had a left also tenderness over the thoracic). Absent: respiratory distress, wheezes, rales, rhonchi, stridor Cardiovascular Exam: Present: normal rhythm, tachycardia, normal heart sounds. Absent: systolic murmur, diastolic murmur, rubs, gallop, clicks GI/Abdominal exam: Present: soft, normal bowel sounds, other (Obese abdomen). Absent: distended, tenderness, guarding, rebound, rigid Extremities exam: Present: normal inspection, full ROM, normal capillary refill. Absent: tenderness, pedal edema, joint swelling, calf tenderness Back exam: Present: normal inspection, full ROM, tenderness, paraspinal tenderness. Absent: CVA tenderness (R), CVA tenderness (L), muscle spasm Neurological exam: Present: alert, oriented X3, CN II-XII intact Psychiatric exam: Present: normal affect, normal mood Skin exam: Present: warm, dry, intact, normal color. Absent: rash <Jimmy Garcia - Last Filed: 04/19/17 20:51> <Jimmy Pool - Last Filed: 04/19/17 23:48> - General Exam Comments Initial Comments: This is a well-developed well-nourished awake alert oriented 3 female (Jimmy Garcia) Course <Jimmy Garcia - Last Filed: 04/19/17 20:51> <Jimmy Pool N - Last Filed: 04/19/17 23:48> Vital Signs 04/19/17 04/19/17 04/19/17 19:51 20:08 21:38 Temperature 99.3 F Pulse Rate 111 H 91 Respiratory 20 20 Rate Blood Pressure 114/51 112/56 O2 Sat by Pulse 91 L 94 L 97 Oximetry 04/19/17 04/19/17 04/19/17 22:45 23:26 23:43 Temperature Pulse Rate 91 88 88 Respiratory 20 20 20 Rate Blood Pressure 127/58 107/53 100/54 O2 Sat by Pulse 97 97 97 Oximetry - Reevaluation(s) Reevaluation #1: 04/19/17 20:43 The patient is a smoker I did discuss with her the risks of smoking and the benefits of stopping. Conversation lasted 3.1 minutes. (Jimmy Garcia) Reevaluation #2: 04/19/17 20:51 The patient's care will be endorsed to Dr. Pool at our shift change. He will make the final disposition (Jimym Garica) Reevaluation #3: 04/19/17 23:44 Patient was reevaluated by myself after sign out. She was continuing to have cough and chest pain. (Jimmy Pool) Chest Pain MDM <Jimmy Garcia - Last Filed: 04/19/17 20:51> <Jimmy Pool - Last Filed: 04/19/17 23:48> - MDM 36 female with history of PE status post Nedrow filter presents with chest pain. Patient states her pain is left-sided and posterior back. She feels this is the same as when she had her pulmonary embolism in the past per she is not on any anticoagulation. She also does admit to having cough and difficulty breathing over the past 24 hours. She says her cough has become productive. She also has a history of smoking and is counseled on the need to quit as this may be contributing to her symptoms. Chest x-ray was reviewed and was negative for any acute process. EKG is nonischemic, no T-wave abnormalities, normal sinus rhythm with ventricular 97, IA interval 148, QRS duration 80, QTc 472. On reevaluation, patient's feeling better. She has oxygen saturation 97% on room air. Heart rate has improved. Given the productive cough associated with her chest pain. She will be treated as an acute bronchitis. She is given an antibiotic and instructed to follow-up with her primary care physician. (Jimmy Pool) Disposition <Jimmy Garcia - Last Filed: 04/19/17 20:51> <Jimmy Pool - Last Filed: 04/19/17 23:48> Clinical Impression: Acute bronchitis Disposition: HOME SELF-CARE Condition: Good Instructions: Chest Pain (ED), Acute Bronchitis (ED) Prescriptions: Azithromycin [Zithromax Z-pack] 0 mg PO DIRECTED #6 tab Referrals: Alex Babin MD [Primary Care Provider] - 1-2 days
[2017-04-19 20:14] LABS: Basophils # (A) 0.1 k/uL (0-0.2); Basophils % (A) 1 %; CH 32.4; CHCM 33.8; Eosinophils # (A) 0.4 k/uL (0-0.7); Eosinophils % (A) 4 %; HDW 2.52; HGB 13.7 gm/dL (11.4-16.0); Luc # (Auto) 0.11; Luc % (Auto) 1; Lymphocytes # (A) 2.3 k/uL (1.0-4.8); Lymphocytes % (A) 23 %; MCH 32.2 pg (25.0-35.0); MCHC 33.4 g/dL (31.0-37.0); MCV 96.3 fL (80.0-100.0); Monocytes # (A) 0.4 k/uL (0-1.0); Monocytes % (A) 4 %; Neutrophils # (A) 6.6 k/uL (1.3-7.7); Neutrophils % (A) 67 %; RBC 4.26 m/uL (3.80-5.40); RDW 13.8 % (11.5-15.5); WBC 9.9 k/uL (3.8-10.6); WBC (Perox) 9.77
[2017-04-19 20:25] LABS: ALT 31 U/L (9-52); AST 20 U/L (14-36); Alkaline Phosphatase 57 U/L (38-126); Amylase 44 U/L (30-110); Anion Gap 9 mmol/L; Blood Urea Nitrogen 15 mg/dL (7-17); Calcium 8.8 mg/dL (8.4-10.2); Carbon Dioxide 23 mmol/L (22-30); Chloride 107 mmol/L (98-107); Glucose 121 mg/dL (74-99); Magnesium 1.6 mg/dL (1.6-2.3); Non-African American GFR(MDRD) >60 (>60 ml/min/1.73 sqM); Potassium 3.9 mmol/L (3.5-5.1); Sodium 139 mmol/L (137-145); Total Bilirubin 0.3 mg/dL (0.2-1.3); Total Protein 5.9 g/dL (6.3-8.2)
[2017-04-19 20:26] LABS: Partial Thromboplastin Time 23.6 sec (22.0-30.0); Prothrombin Time 10.2 sec (9.0-12.0)
[2017-04-19 20:34] LABS: Creatine Kinase 33 U/L (30-135)
[2017-04-19 20:46] LABS: Creatine Kinase MB <0.2 ng/mL (0.0-2.4); Troponin I <0.012 ng/mL (0.000-0.034)
--- NOTE | 2017-04-19 20:56 | XR ---
EXAMINATION TYPE: XR chest 2V DATE OF EXAM: 04/19/2017 COMPARISON: 01/31/2017 INDICATION: Chest pain TECHNIQUE: Frontal and lateral views of the chest are obtained. FINDINGS: The heart size is normal. The pulmonary vasculature is normal. The lungs are clear. IMPRESSION: 1. No acute pulmonary process.
[2017-04-19] MEDS ORDERED: RX INFO: IV CONTRAST WAS GIVEN 1 EACH MISC MISCELLANE PRN (21:30)
[2017-04-19] MEDS ORDERED: MORPHINE SULFATE 4 MG/ML SYRINGE IVP STA (22:43)
--- NOTE | 2017-04-19 23:23 | CT ---
EXAM: CT Angiography Chest With Intravenous Contrast CLINICAL HISTORY: Reason: Pain TECHNIQUE: Axial computed tomographic angiography images of the chest with intravenous contrast using pulmonary embolism protocol. 100 mL of Omnipaque 350 was administered intravenously for this exam. This CT exam was performed using one or more of the following dose reduction techniques: automated exposure control, adjustment of the mA and/or kV according to patient size, and/or use of iterative reconstruction technique. MIP reconstructed images were created and reviewed. Dose Length Product (DLP) is 792.10 mGy-cm. COMPARISON: 01/31/17 FINDINGS: Pulmonary arteries: Unremarkable. No pulmonary embolism. Aorta: No acute findings. No thoracic aortic aneurysm. Lungs: Unremarkable. No mass. No consolidation. Pleural space: Unremarkable. No significant effusion. No pneumothorax. Heart: Unremarkable. No cardiomegaly. No significant pericardial effusion. No evidence of RV dysfunction. Bones/joints: No acute fracture. No dislocation. Soft tissues: Unremarkable. Lymph nodes: Unremarkable. No enlarged lymph nodes. IMPRESSION: Normal chest CTA. No pulmonary embolism.
[2017-04-19 23:27] VITALS: PULSE 88
[2017-04-19 23:44] VITALS: BP 100/54
== END 2017-04-20 00:30 | disposition home or self-care (01) ==
LOC: EC 19:47
DX: J20.9 Acute bronchitis, unspecified (principal); F31.9 Bipolar disorder, unspecified; F41.9 Anxiety disorder, unspecified; F17.200 Nicotine dependence, unspecified, uncomplicated; Z86.711 Personal history of pulmonary embolism; Z79.891 Long term (current) use of opiate analgesic; Z79.899 Other long term (current) drug therapy
CPT/HCPCS: 36415; 93005; 85379; 83880; 80053; 82150; 82550; 82553; 83690; 83735; 84484; 85025; 85610; 85730; 71020; 71275; 99285; 96374; 96375; J2270; Q9967; J1885

== ENCOUNTER 2017-05-18 19:51 | Emergency (ER) | payer OTHER ==
[2017-05-18] MEDS ORDERED: RX INFO: IV CONTRAST WAS GIVEN 1 EACH MISC MISCELLANE PRN (20:26)
[2017-05-18] MEDS ORDERED: SODIUM CHLORIDE 0.9% 500 ML IV STA (20:26)
--- NOTE | 2017-05-18 20:37 | ED ---
Abdominal Pain HPI - General Chief Complaint: Abdominal Pain Stated Complaint: lower right abdominal pain Time Seen by Provider: 05/18/17 20:21 Source: patient, RN notes reviewed Mode of arrival: ambulatory Limitations: no limitations - History of Present Illness Initial Comments: 36-year-old female presents emergency Department chief complaint of right lower quadrant abdominal pain. Patient states has been present last 2 days. Patient states is not alleviating states the pain seems to be getting worse. Patient had a prior cholecystectomy no other abdominal surgeries. Patient denies any flank pain no dysuria no hematuria. She denies any chance and states that she has no history kidney stones. Patient states often makes pain feel better or worse. She does admit to some constipation no diarrhea no nausea vomiting. - Related Data Home Medications Medication Instructions Recorded Confirmed HYDROcodone/APAP 5-325MG [[place] 1 tab PO BID PRN 10/24/16 05/18/17 5-325] Verapamil HCl [Verapamil ER] 120 mg PO HS 10/24/16 05/18/17 Ibuprofen 800 mg PO TID PRN 03/14/17 05/18/17 FLUoxetine HCL [PROzac] 20 mg PO DAILY 04/19/17 05/18/17 Furosemide [Lasix] 20 mg PO DAILY 04/19/17 05/18/17 Latanoprost [Xalatan 0.005%] 1 drop BOTH EYES HS 04/19/17 05/18/17 Lurasidone HCl [Latuda] 120 mg PO DAILY 04/19/17 05/18/17 Potassium Chloride ER [K-Dur 10] 10 meq PO DAILY 04/19/17 05/18/17 Cyclobenzaprine [Flexeril] 10 mg PO TID 05/18/17 05/18/17 Oxybutynin Chloride [Ditropan] 5 mg PO BID 05/18/17 05/18/17 busPIRone HCl [Buspar] 10 mg PO TID PRN 05/18/17 05/18/17 Previous Rx's Medication Instructions Recorded traZODone HCL [Desyrel] 200 mg PO HS #60 tab 11/27/15 Allergies Allergy/AdvReac Type Severity Reaction Status Date / Time No Known Allergies Allergy Verified 05/18/17 21:33 Review of Systems ROS Statement: Those systems with pertinent positive or pertinent negative responses have been documented in the HPI. ROS Other: All systems not noted in ROS Statement are negative. Past Medical History Past Medical History: Pulmonary Embolus (PE) Additional Past Medical History / Comment(s): PE, carpal tunnel, neuropathy, arthritis in neck History of Any Multi-Drug Resistant Organisms: None Reported Past Surgical History: Section, Cholecystectomy, Uterine Ablation Additional Past Surgical History / Comment(s): Andreas filter, D&C Past Anesthesia/Blood Transfusion Reactions: No Reported Reaction Past Psychological History: Anxiety, Bipolar, Depression Smoking Status: Current every day smoker Past Alcohol Use History: Occasional Past Drug Use History: None Reported General Exam Limitations: no limitations General appearance: alert, in no apparent distress Head exam: Present: atraumatic, normocephalic, normal inspection Respiratory exam: Present: normal lung sounds bilaterally. Absent: respiratory distress, wheezes, rales, rhonchi, stridor Cardiovascular Exam: Present: regular rate, normal rhythm, normal heart sounds. Absent: systolic murmur, diastolic murmur, rubs, gallop, clicks GI/Abdominal exam: Present: soft, tenderness (Moderate right lower quadrant tenderness), normal bowel sounds. Absent: distended, guarding, rebound, rigid Back exam: Absent: CVA tenderness (R), CVA tenderness (L) Neurological exam: Present: alert, oriented X3, CN II-XII intact Skin exam: Present: warm, dry, intact, normal color. Absent: rash Course Vital Signs 05/18/17 05/18/17 20:03 21:23 Temperature 98.2 F 97.7 F Pulse Rate 99 91 Respiratory 20 20 Rate Blood Pressure 131/84 121/60 O2 Sat by Pulse 99 94 L Oximetry Medical Decision Making - Medical Decision Making 36-year-old female presented emergency from for right-sided abdominal pain and right lower. Patient has had problems with constipation. Patient CT does not show any significant abnormality or signs of acute appendicitis. Does not have any vaginal bleeding or vaginal discharge. Patient has no signs of UTI. Patient's pain may related to constipation. Patient follow-up with primary care physician. Return parameters were discussed. - Lab Data Result diagrams: 05/18/17 20:30 05/18/17 20:30 Lab Results 05/18/17 05/18/17 05/18/17 Range/Units 20:30 20:30 20:30 WBC 12.3 H (3.8-10.6) k/uL RBC 4.51 (3.80-5.40) m/uL Hgb 14.7 (11.4-16.0) gm/dL Hct 42.8 (34.0-46.0) % MCV 94.8 (80.0-100.0) fL MCH 32.5 (25.0-35.0) pg MCHC 34.3 (31.0-37.0) g/dL RDW 14.1 (11.5-15.5) % Plt Count 325 (150-450) k/uL Neutrophils % 74 % Lymphocytes % 19 % Monocytes % 3 % Eosinophils % 2 % Basophils % 1 % Neutrophils # 9.1 H (1.3-7.7) k/uL Lymphocytes # 2.3 (1.0-4.8) k/uL Monocytes # 0.4 (0-1.0) k/uL Eosinophils # 0.3 (0-0.7) k/uL Basophils # 0.1 (0-0.2) k/uL Sodium 135 L (137-145) mmol/L Potassium 4.1 (3.5-5.1) mmol/L Chloride 102 (98-107) mmol/L Carbon Dioxide 26 (22-30) mmol/L Anion Gap 7 mmol/L BUN 18 H (7-17) mg/dL Creatinine 1.00 (0.52-1.04) mg/dL Est GFR (MDRD) Af Amer >60 (>60 ml/min/1.73 sqM) Est GFR (MDRD) Non-Af >60 (>60 ml/min/1.73 sqM) Glucose 107 H (74-99) mg/dL Calcium 8.8 (8.4-10.2) mg/dL Total Bilirubin 0.3 (0.2-1.3) mg/dL AST 17 (14-36) U/L ALT 34 (9-52) U/L Alkaline Phosphatase 53 (38-126) U/L Total Protein 6.1 L (6.3-8.2) g/dL Albumin 3.6 (3.5-5.0) g/dL Amylase 36 (30-110) U/L Lipase 218 (23-300) U/L Urine Color Urine Appearance (Clear) Urine pH (5.0-8.0) Ur Specific [place] (1.001-1.035) Urine Protein (Negative) Urine Glucose (UA) (Negative) Urine Ketones (Negative) Urine Blood (Negative) Urine Nitrite (Negative) Urine Bilirubin (Negative) Urine Urobilinogen (<2.0) mg/dL Ur Leukocyte Esterase (Negative) Urine RBC (0-5) /hpf Urine WBC (0-5) /hpf Ur Squamous Epith Cells (0-4) /hpf Urine Bacteria (None) /hpf Urine Mucus (None) /hpf Urine HCG, Qual Not Detected (Not Detectd) 05/18/17 Range/Units 20:30 WBC (3.8-10.6) k/uL RBC (3.80-5.40) m/uL Hgb (11.4-16.0) gm/dL Hct (34.0-46.0) % MCV (80.0-100.0) fL MCH (25.0-35.0) pg MCHC (31.0-37.0) g/dL RDW (11.5-15.5) % Plt Count (150-450) k/uL Neutrophils % % Lymphocytes % % Monocytes % % Eosinophils % % Basophils % % Neutrophils # (1.3-7.7) k/uL Lymphocytes # (1.0-4.8) k/uL Monocytes # (0-1.0) k/uL Eosinophils # (0-0.7) k/uL Basophils # (0-0.2) k/uL Sodium (137-145) mmol/L Potassium (3.5-5.1) mmol/L Chloride (98-107) mmol/L Carbon Dioxide (22-30) mmol/L Anion Gap mmol/L BUN (7-17) mg/dL Creatinine (0.52-1.04) mg/dL Est GFR (MDRD) Af Amer (>60 ml/min/1.73 sqM) Est GFR (MDRD) Non-Af (>60 ml/min/1.73 sqM) Glucose (74-99) mg/dL Calcium (8.4-10.2) mg/dL Total Bilirubin (0.2-1.3) mg/dL AST (14-36) U/L ALT (9-52) U/L Alkaline Phosphatase (38-126) U/L Total Protein (6.3-8.2) g/dL Albumin (3.5-5.0) g/dL Amylase (30-110) U/L Lipase (23-300) U/L Urine Color Yellow Urine Appearance Cloudy H (Clear) Urine pH 6.0 (5.0-8.0) Ur Specific [place] 1.019 (1.001-1.035) Urine Protein Trace H (Negative) Urine Glucose (UA) Negative (Negative) Urine Ketones Negative (Negative) Urine Blood Negative (Negative) Urine Nitrite Negative (Negative) Urine Bilirubin Negative (Negative) Urine Urobilinogen <2.0 (<2.0) mg/dL Ur Leukocyte Esterase Negative (Negative) Urine RBC <1 (0-5) /hpf Urine WBC 6 H (0-5) /hpf Ur Squamous Epith Cells 33 H (0-4) /hpf Urine Bacteria Rare H (None) /hpf Urine Mucus Rare H (None) /hpf Urine HCG, Qual (Not Detectd) Disposition Clinical Impression: Abdominal pain Disposition: HOME SELF-CARE Condition: Stable Instructions: Abdominal Pain (ED) Additional Instructions: Please return to the Emergency Department if symptoms worsen or any other concerns. Referrals: Alex Babin MD [Primary Care Provider] - 1-2 days Time of Disposition: 21:46
[2017-05-18 20:42] LABS: Basophils # (A) 0.1 k/uL (0-0.2); Basophils % (A) 1 %; CH 31.8; CHCM 33.6; Eosinophils # (A) 0.3 k/uL (0-0.7); Eosinophils % (A) 2 %; HCT 42.8 % (34.0-46.0); HDW 2.36; HGB 14.7 gm/dL (11.4-16.0); Luc # (Auto) 0.12; Luc % (Auto) 1; Lymphocytes # (A) 2.3 k/uL (1.0-4.8); Lymphocytes % (A) 19 %; MCH 32.5 pg (25.0-35.0); MCHC 34.3 g/dL (31.0-37.0); MCV 94.8 fL (80.0-100.0); Mean Platelet Volume 6.5; Monocytes # (A) 0.4 k/uL (0-1.0); Monocytes % (A) 3 %; Neutrophils # (A) 9.1 k/uL (1.3-7.7); Neutrophils % (A) 74 %; RBC 4.51 m/uL (3.80-5.40); RDW 14.1 % (11.5-15.5); WBC 12.3 k/uL (3.8-10.6); WBC (Perox) 12.11
[2017-05-18 20:49] LABS: Appearance,Urine Cloudy (Clear); Bacteria,Urine Rare /hpf; Bilirubin,Urine Negative (Negative); Glucose,Urine (UA) Negative (Negative); Ketones,Urine Negative (Negative); Leukocyte Esterase,Urine Negative (Negative); Mucus,Urine Rare /hpf; Nitrite,Urine Negative (Negative); Particle Count 14568; Protein,Urine Trace (Negative); RBC,Urine <1 /hpf (0-5); Specific Gravity,Urine 1.019 (1.001-1.035); Squamous Epithelial Cell,Urine 33 /hpf (0-4); UA Billing (MACRO vs. MICRO) MICRO; Urobilinogen,Urine <2.0 mg/dL (<2.0); WBC,Urine 6 /hpf (0-5)
[2017-05-18 20:52] LABS: ALT 34 U/L (9-52); AST 17 U/L (14-36); Alkaline Phosphatase 53 U/L (38-126); Amylase 36 U/L (30-110); Anion Gap 7 mmol/L; Blood Urea Nitrogen 18 mg/dL (7-17); Calcium 8.8 mg/dL (8.4-10.2); Carbon Dioxide 26 mmol/L (22-30); Chloride 102 mmol/L (98-107); Glucose 107 mg/dL (74-99); Non-African American GFR(MDRD) >60 (>60 ml/min/1.73 sqM); Potassium 4.1 mmol/L (3.5-5.1); Sodium 135 mmol/L (137-145); Total Bilirubin 0.3 mg/dL (0.2-1.3); Total Protein 6.1 g/dL (6.3-8.2)
--- NOTE | 2017-05-18 21:36 | CT ---
EXAMINATION TYPE: CT abdomen pelvis w con DATE OF EXAM: 05/18/2017 COMPARISON: NONE HISTORY: Right lower quadrant pain. CT DLP: 4179.20 mGycm Automated exposure control for dose reduction was used. TECHNIQUE: Helical acquisition of images was performed from the lung bases through the pelvis. CONTRAST: Performed without Oral Contrast and with IV Contrast, patient injected with 100 mL of Omnipaque 300. FINDINGS: LUNG BASES: No significant abnormality is appreciated. LIVER/GB: Liver is unremarkable. Surgical clips are identified in the gallbladder fossa from prior ch olecystectomy. PANCREAS: No significant abnormality is seen. SPLEEN: No significant abnormality is seen. ADRENALS: No significant abnormality is seen. KIDNEYS: No significant abnormality is seen. FREE AIR: No free air is visualized. RETROPERITONEAL ADENOPATHY: None visualized REPRODUCTIVE ORGANS: The uterus is present. Both ovaries are identified. URINARY BLADDER: No significant abnormality is seen. PELVIC ADENOPATHY: None visualized. OSSEOUS STRUCTURES: No significant abnormality is seen. BOWEL: The appendix is visualized, and is normal. OTHER: Patient has inferior vena cava filter which is located in the mid aspect of the inferior vena cava. Filter was present on a previous study from August 30, 2015. IMPRESSION: NO SIGNIFICANT FINDINGS. THE APPENDIX IS VISUALIZED, AND IS NORMAL.
[2017-05-18 21:53] VITALS: BP 152/70; PULSE 70; RESP 16; TEMP 98
== END 2017-05-18 21:52 | disposition home or self-care (01) ==
LOC: EC 19:51
DX: R10.31 Right lower quadrant pain (principal); K59.00 Constipation, unspecified; F41.9 Anxiety disorder, unspecified; F32.9 Major depressive disorder, single episode, unspecified; F17.200 Nicotine dependence, unspecified, uncomplicated; Z98.890 Other specified postprocedural states; Z90.49 Acquired absence of other specified parts of digestive tract; Z79.899 Other long term (current) drug therapy
CPT/HCPCS: 36415; 80053; 82150; 83690; 85025; 81001; 81025; 74177; 99284; 96360; Q9967

== ENCOUNTER 2017-06-03 17:43 | Emergency (ER) | payer OTHER ==
[2017-06-03 17:47] VITALS: RESP 16
[2017-06-03] MEDS ORDERED: ONDANSETRON 4 MG/2 ML VIAL IVP STA (18:02)
[2017-06-03] MEDS ORDERED: SODIUM CHLORIDE 0.9% 1,000 ML IV STA (18:02)
[2017-06-03] MEDS ORDERED: FAMOTIDINE 20 MG/2 ML VIAL IV STA (18:03)
[2017-06-03] MEDS ORDERED: ACETAMINOPHEN IV (For NPO) 1,000 MG in EMPTY BAG 1 BAG IVPB STA (18:03)
--- NOTE | 2017-06-03 18:05 | ED ---
General Adult HPI - General Chief complaint: Abdominal Pain Stated complaint: Abd Pain Time Seen by Provider: 06/03/17 17:58 Source: patient, RN notes reviewed Mode of arrival: ambulatory Limitations: no limitations - History of Present Illness Initial comments: Patient 36-year-old female who presents emergency room today with a chief complaint of abdominal pain located right upper quadrant that began approximately an hour ago. She describes it as a sharp" stabbing" type pain. Denies any radiation. Currently rates an 8/10. States feels similar to symptoms of a gallbladder attack that she had in the past. She has mid to a history of cholecystectomy approximately 2 years ago. Patient nausea. Denies any other complaints or symptoms. Patient denies any recent fever, chills, shortness of breath, chest pain, back pain, vomiting, numbness or tingling, dysuria or hematuria, constipation or diarrhea, headaches or visual changes, or any other complaints. - Related Data Home Medications Medication Instructions Recorded Confirmed HYDROcodone/APAP 5-325MG [[place] 1 tab PO BID PRN 10/24/16 06/03/17 5-325] Verapamil HCl [Verapamil ER] 120 mg PO HS 10/24/16 06/03/17 Ibuprofen 800 mg PO TID PRN 03/14/17 06/03/17 FLUoxetine HCL [PROzac] 20 mg PO DAILY 04/19/17 06/03/17 Furosemide [Lasix] 20 mg PO DAILY 04/19/17 06/03/17 Latanoprost [Xalatan 0.005%] 1 drop BOTH EYES HS 04/19/17 06/03/17 Lurasidone HCl [Latuda] 120 mg PO DAILY 04/19/17 06/03/17 Potassium Chloride ER [K-Dur 10] 10 meq PO DAILY 04/19/17 06/03/17 Cyclobenzaprine [Flexeril] 10 mg PO TID 05/18/17 06/03/17 Oxybutynin Chloride [Ditropan] 5 mg PO BID 05/18/17 06/03/17 busPIRone HCl [Buspar] 10 mg PO TID PRN 05/18/17 06/03/17 Previous Rx's Medication Instructions Recorded traZODone HCL [Desyrel] 200 mg PO HS #60 tab 11/27/15 Famotidine [Pepcid] 20 mg PO BID #20 tablet 10/03/17 Ondansetron Odt [Zofran ODT] 4 mg PO Q8HR PRN #20 tab 06/03/17 Allergies Allergy/AdvReac Type Severity Reaction Status Date / Time No Known Allergies Allergy Verified 06/03/17 18:10 Review of Systems ROS Statement: Those systems with pertinent positive or pertinent negative responses have been documented in the HPI. ROS Other: All systems not noted in ROS Statement are negative. Past Medical History Past Medical History: Pulmonary Embolus (PE) Additional Past Medical History / Comment(s): PE, carpal tunnel, neuropathy, arthritis in neck History of Any Multi-Drug Resistant Organisms: None Reported Past Surgical History: Section, Cholecystectomy, Uterine Ablation Additional Past Surgical History / Comment(s): Andreas filter, D&C Past Anesthesia/Blood Transfusion Reactions: No Reported Reaction Past Psychological History: Anxiety, Bipolar, Depression Smoking Status: Current every day smoker Past Alcohol Use History: Occasional Past Drug Use History: None Reported General Exam - General Exam Comments Initial Comments: General: The patient is awake and alert, in no distress, and does not appear acutely ill. Eye: Pupils are equal, round and reactive to light, extra-ocular movements are intact. No nystagmus. There is normal conjunctiva bilaterally. No signs of icterus. Ears, nose, mouth and throat: There are moist mucous membranes and no oral lesions. Neck: The neck is supple, there is no tenderness or JVD. Cardiovascular: There is a regular rate and rhythm. No murmur, rub or gallop is appreciated. Respiratory: Lungs are clear to auscultation, respirations are non-labored, breath sounds are equal. No wheezes, stridor, rales, or rhonchi. Gastrointestinal: Normal appearance. Normal bowel sounds. Soft on palpation. Patient does have mild tenderness both left and right upper quadrants. No rebound or guarding. No CVA tenderness. Musculoskeletal: Normal ROM, no tenderness. Strength 5/5. Sensation intact. Pulses equal bilaterally 2+. Neurological: A&O x 3. CN II-XII intact, There are no obvious motor or sensory deficits. Coordination appears grossly intact. Speech is normal. Skin: Skin is warm and dry and no rashes or lesions are noted. Psychiatric: Cooperative, appropriate mood & affect, normal judgment. Limitations: no limitations Course Vital Signs 06/03/17 17:45 Temperature 98.8 F Pulse Rate 101 H Respiratory 16 Rate Blood Pressure 119/72 O2 Sat by Pulse 96 Oximetry Medical Decision Making - Medical Decision Making Case discussed in detail with attending physician Dr. Monroy. Patient reexamined at this time shows no signs of distress. Patient resting comfortably in stretcher. She admits that pain started approximately a hour before arrival. Her labs been reviewed unremarkable. Patient feeling better discharged home advised follow-up the family doctor over the next 2 days. Advised return here if symptoms increase or worsen. Patient states understanding and is in agreement. - Lab Data Result diagrams: 06/03/17 18:15 06/03/17 18:15 Lab Results 06/03/17 06/03/17 06/03/17 Range/Units 16:07 16:07 18:15 WBC (3.8-10.6) k/uL RBC (3.80-5.40) m/uL Hgb (11.4-16.0) gm/dL Hct (34.0-46.0) % MCV (80.0-100.0) fL MCH (25.0-35.0) pg MCHC (31.0-37.0) g/dL RDW (11.5-15.5) % Plt Count (150-450) k/uL Neutrophils % % Lymphocytes % % Monocytes % % Eosinophils % % Basophils % % Neutrophils # (1.3-7.7) k/uL Lymphocytes # (1.0-4.8) k/uL Monocytes # (0-1.0) k/uL Eosinophils # (0-0.7) k/uL Basophils # (0-0.2) k/uL Sodium 136 L (137-145) mmol/L Potassium 4.2 (3.5-5.1) mmol/L Chloride 101 (98-107) mmol/L Carbon Dioxide 25 (22-30) mmol/L Anion Gap 10 mmol/L BUN 16 (7-17) mg/dL Creatinine 1.11 H (0.52-1.04) mg/dL Est GFR (MDRD) Af Amer >60 (>60 ml/min/1.73 sqM) Est GFR (MDRD) Non-Af 56 (>60 ml/min/1.73 sqM) Glucose 112 H (74-99) mg/dL Calcium 8.9 (8.4-10.2) mg/dL Total Bilirubin 0.2 (0.2-1.3) mg/dL AST 23 (14-36) U/L ALT 31 (9-52) U/L Alkaline Phosphatase 56 (38-126) U/L Total Protein 6.3 (6.3-8.2) g/dL Albumin 3.7 (3.5-5.0) g/dL Amylase 36 (30-110) U/L Lipase 239 (23-300) U/L Urine Color Yellow Urine Appearance Cloudy H (Clear) Urine pH 5.5 (5.0-8.0) Ur Specific [place] 1.021 (1.001-1.035) Urine Protein Trace H (Negative) Urine Glucose (UA) Negative (Negative) Urine Ketones Negative (Negative) Urine Blood Negative (Negative) Urine Nitrite Negative (Negative) Urine Bilirubin Negative (Negative) Urine Urobilinogen 2.0 (<2.0) mg/dL Ur Leukocyte Esterase Moderate H (Negative) Urine RBC 2 (0-5) /hpf Urine WBC 5 (0-5) /hpf Ur Squamous Epith Cells 8 H (0-4) /hpf Urine Mucus Rare H (None) /hpf Urine HCG, Qual Not Detected (Not Detectd) 06/03/17 Range/Units 18:15 WBC 9.4 (3.8-10.6) k/uL RBC 4.39 (3.80-5.40) m/uL Hgb 14.3 (11.4-16.0) gm/dL Hct 43.1 (34.0-46.0) % MCV 98.0 (80.0-100.0) fL MCH 32.6 (25.0-35.0) pg MCHC 33.2 (31.0-37.0) g/dL RDW 14.2 (11.5-15.5) % Plt Count 344 (150-450) k/uL Neutrophils % 66 % Lymphocytes % 25 % Monocytes % 5 % Eosinophils % 3 % Basophils % 1 % Neutrophils # 6.2 (1.3-7.7) k/uL Lymphocytes # 2.4 (1.0-4.8) k/uL Monocytes # 0.4 (0-1.0) k/uL Eosinophils # 0.2 (0-0.7) k/uL Basophils # 0.1 (0-0.2) k/uL Sodium (137-145) mmol/L Potassium (3.5-5.1) mmol/L Chloride (98-107) mmol/L Carbon Dioxide (22-30) mmol/L Anion Gap mmol/L BUN (7-17) mg/dL Creatinine (0.52-1.04) mg/dL Est GFR (MDRD) Af Amer (>60 ml/min/1.73 sqM) Est GFR (MDRD) Non-Af (>60 ml/min/1.73 sqM) Glucose (74-99) mg/dL Calcium (8.4-10.2) mg/dL Total Bilirubin (0.2-1.3) mg/dL AST (14-36) U/L ALT (9-52) U/L Alkaline Phosphatase (38-126) U/L Total Protein (6.3-8.2) g/dL Albumin (3.5-5.0) g/dL Amylase (30-110) U/L Lipase (23-300) U/L Urine Color Urine Appearance (Clear) Urine pH (5.0-8.0) Ur Specific [place] (1.001-1.035) Urine Protein (Negative) Urine Glucose (UA) (Negative) Urine Ketones (Negative) Urine Blood (Negative) Urine Nitrite (Negative) Urine Bilirubin (Negative) Urine Urobilinogen (<2.0) mg/dL Ur Leukocyte Esterase (Negative) Urine RBC (0-5) /hpf Urine WBC (0-5) /hpf Ur Squamous Epith Cells (0-4) /hpf Urine Mucus (None) /hpf Urine HCG, Qual (Not Detectd) Disposition Clinical Impression: Abdominal pain Disposition: HOME SELF-CARE Condition: Good Instructions: Abdominal Pain (ED) Additional Instructions: Please use medication as discussed. Please follow-up with family doctor in the next 2 days of symptoms have not improved. Please return to emergency room if the symptoms increase or worsen or for any other concerns. Prescriptions: Famotidine [Pepcid] 20 mg PO BID #20 tablet Ondansetron Odt [Zofran ODT] 4 mg PO Q8HR PRN #20 tab PRN Reason: Nausea Referrals: Alex Babin MD [Primary Care Provider] - 1-2 days Time of Disposition: 18:44
[2017-06-03 18:18] LABS: Appearance,Urine Cloudy (Clear); Bilirubin,Urine Negative (Negative); Glucose,Urine (UA) Negative (Negative); Ketones,Urine Negative (Negative); Leukocyte Esterase,Urine Moderate (Negative); Mucus,Urine Rare /hpf; Nitrite,Urine Negative (Negative); PH, Urine 5.5 (5.0-8.0); Particle Count 7054; Protein,Urine Trace (Negative); RBC,Urine 2 /hpf (0-5); Specific Gravity,Urine 1.021 (1.001-1.035); Squamous Epithelial Cell,Urine 8 /hpf (0-4); UA Billing (MACRO vs. MICRO) MICRO; WBC,Urine 5 /hpf (0-5)
[2017-06-03 18:26] LABS: Basophils # (A) 0.1 k/uL (0-0.2); Basophils % (A) 1 %; CH 31.9; CHCM 32.6; Eosinophils # (A) 0.2 k/uL (0-0.7); Eosinophils % (A) 3 %; HCT 43.1 % (34.0-46.0); HDW 2.29; HGB 14.3 gm/dL (11.4-16.0); Luc % (Auto) 1; Lymphocytes # (A) 2.4 k/uL (1.0-4.8); Lymphocytes % (A) 25 %; MCH 32.6 pg (25.0-35.0); MCHC 33.2 g/dL (31.0-37.0); Mean Platelet Volume 6.2; Monocytes # (A) 0.4 k/uL (0-1.0); Monocytes % (A) 5 %; Neutrophils # (A) 6.2 k/uL (1.3-7.7); Neutrophils % (A) 66 %; RBC 4.39 m/uL (3.80-5.40); RDW 14.2 % (11.5-15.5); WBC 9.4 k/uL (3.8-10.6); WBC (Perox) 9.74
--- NOTE | 2017-06-03 18:31 | XR ---
EXAMINATION TYPE: XR KUB DATE OF EXAM: 06/03/2017 6:27 PM CLINICAL HISTORY: Abdominal pain not further specified TECHNIQUE: Two Upright KUB images of the abdomen are obtained. COMPARISON: CT abdomen pelvis May 18, 2017 FINDINGS: There is some paucity of bowel gas. Scattered gas is seen in non-distended small bowel loop s. Gas and fecal material is seen in non-distended colon. IVC filter is redemonstrated over the right midabdomen. Cholecystectomy clips are again seen. No pneumoperitoneum is present. Visualized lung ba ses are felt clear. Visualized osseous structures are intact. IMPRESSION: Overall nonspecific but strongly favor nonobstructive bowel gas pattern.
[2017-06-03 18:34] LABS: ALT 31 U/L (9-52); AST 23 U/L (14-36); Alkaline Phosphatase 56 U/L (38-126); Amylase 36 U/L (30-110); Anion Gap 10 mmol/L; Blood Urea Nitrogen 16 mg/dL (7-17); Calcium 8.9 mg/dL (8.4-10.2); Carbon Dioxide 25 mmol/L (22-30); Chloride 101 mmol/L (98-107); Glucose 112 mg/dL (74-99); Non-African American GFR(MDRD) 56 (>60 ml/min/1.73 sqM); Potassium 4.2 mmol/L (3.5-5.1); Sodium 136 mmol/L (137-145); Total Bilirubin 0.2 mg/dL (0.2-1.3); Total Protein 6.3 g/dL (6.3-8.2)
[2017-06-03 19:05] VITALS: BP 113/53; PULSE 68; TEMP 97.9
== END 2017-06-03 19:04 | disposition home or self-care (01) ==
LOC: EC 17:43
DX: R10.11 Right upper quadrant pain (principal); R10.12 Left upper quadrant pain; R11.0 Nausea; F41.9 Anxiety disorder, unspecified; F31.9 Bipolar disorder, unspecified; F17.200 Nicotine dependence, unspecified, uncomplicated; Z90.49 Acquired absence of other specified parts of digestive tract; Z79.899 Other long term (current) drug therapy
CPT/HCPCS: 99284 ×2; 96365 ×2; 96375 ×3; 36415; 80053; 82150; 83690; 85025; 81001; 81025; 74000; J2405; J0131

== ENCOUNTER 2017-07-23 18:45 | Emergency (ER) | payer OTHER ==
[2017-07-23] MEDS ORDERED: IBUPROFEN 600 MG STARTER PACK 4 TAB BTL PO STA (20:03)
[2017-07-23] MEDS ORDERED: ACETAMINOPHEN TAB 500 MG TAB PO STA (20:17)
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
[2017-07-23 21:32] VITALS: BP 108/60; PULSE 87; RESP 20; TEMP 98.4
== END 2017-07-23 21:32 | disposition home or self-care (01) ==
LOC: EC 18:45
DX: R51 Headache (principal); R42 Dizziness and giddiness; F31.9 Bipolar disorder, unspecified; F41.9 Anxiety disorder, unspecified; F17.200 Nicotine dependence, unspecified, uncomplicated; Z79.899 Other long term (current) drug therapy
CPT/HCPCS: 82375; 99284

== ENCOUNTER → 2017-09-23 | Outpatient (CLI) | payer OTHER ==
--- NOTE | 2017-09-23 12:21 | CT ---
EXAMINATION TYPE: CT abdomen pelvis wo con DATE OF EXAM: 09/23/2017 COMPARISON: 05/18/2017 HISTORY: Abdominal pain CT DLP: 2112 mGycm Automated exposure control for dose reduction was used. TECHNIQUE: Helical acquisition of images was performed from the lung bases through the pelvis. FINDINGS: LUNG BASES: No significant abnormality is appreciated. LIVER/GB: Gallbladder surgically absent. Unenhanced hepatic parenchyma is of normal morphology. PANCREAS: No ductal dilatation. Unremarkable morphology. SPLEEN: No significant abnormality is seen. ADRENALS: No nodularity or thickening. KIDNEYS: Punctate 2 mm left midpole renal calculus is seen in series 3 image 40. No evidence of hydro nephrosis or obstructive uropathy. No right-sided renal calculi. FREE AIR: No free air is visualized RETROPERITONEAL ADENOPATHY: None visualized REPRODUCTIVE ORGANS: Follicular changes are seen of both ovaries. URINARY BLADDER: No significant abnormality is seen. PELVIC ADENOPATHY: None visualized. OSSEOUS STRUCTURES: No significant abnormality is seen. BOWEL: Appendix is air-filled and within normal limits of size. OTHER: Infrarenal inferior vena cava filter is noted. There is a small fat filled umbilical hernia cota perimposed upon diastases recti. IMPRESSION: 1. NO ACUTE PROCESS OR FINDING TO CORRESPOND TO THE PATIENT'S ABDOMINAL PAIN. 2. 2 MM NONOBSTRUCTING LEFT MIDPOLE RENAL CALCULUS.
== END | disposition home or self-care (01) ==
LOC: RADCTMAIN 10:15
DX: N20.0 Calculus of kidney (principal)
CPT/HCPCS: 74176

== ENCOUNTER 2017-12-01 16:31 | Emergency (ER) | payer OTHER ==
[2017-12-01 16:51] VITALS: BP 138/63; PULSE 84; RESP 20; TEMP 97.8
--- NOTE | 2017-12-01 17:17 | XR ---
EXAMINATION TYPE: XR foot complete RT DATE OF EXAM: 12/01/2017 COMPARISON: 07/08/2017 HISTORY: Foot pain TECHNIQUE: 3 views FINDINGS: There are plantar and Achilles calcaneal spurs. There is multiple hammertoe deformity. I se e no fracture nor dislocation. There are no erosions. IMPRESSION: Calcaneal moderate spurring. No fracture seen. No sign of inflammatory arthritis. No change.
--- NOTE | 2017-12-01 17:26 | ED ---
Lower Extremity Injury HPI - General Chief Complaint: Extremity Injury, Lower Stated Complaint: Right foot pain Time Seen by Provider: 12/01/17 16:43 Source: patient, RN notes reviewed, old records reviewed Mode of arrival: ambulatory Limitations: no limitations - History of Present Illness Initial Comments: 36-year-old female present chief complaint of right foot pain. She reports the pain is between her fourth and third metatarsals. She states that it's worse with bearing weight on it. She denies any trauma or falls. Denies any significant swelling. She does have a history of neuropathy. She reports no heel or ankle pain. She states that she has had no new shoes or other issues to relate the onset of her pain. - Related Data Home Medications Medication Instructions Recorded Confirmed HYDROcodone/APAP 5-325MG [[place] 1 tab PO BID PRN 10/24/16 08/03/17 5-325] Verapamil HCl [Verapamil ER] 120 mg PO HS 10/24/16 08/03/17 Ibuprofen 800 mg PO TID PRN 03/14/17 08/03/17 FLUoxetine HCL [PROzac] 20 mg PO DAILY 04/19/17 08/03/17 Furosemide [Lasix] 20 mg PO DAILY 04/19/17 08/03/17 Latanoprost [Xalatan 0.005%] 1 drop BOTH EYES HS 04/19/17 08/03/17 Lurasidone HCl [Latuda] 120 mg PO DAILY 04/19/17 08/03/17 Potassium Chloride ER [K-Dur 10] 10 meq PO DAILY 04/19/17 08/03/17 Cyclobenzaprine [Flexeril] 10 mg PO TID 05/18/17 08/03/17 Oxybutynin Chloride [Ditropan] 5 mg PO BID 05/18/17 08/03/17 busPIRone HCl [Buspar] 10 mg PO TID PRN 05/18/17 08/03/17 SUMAtriptan SUCCINATE [Imitrex] 50 mg PO BID PRN 06/29/17 08/03/17 traZODone HCL [Desyrel] 300 mg PO HS 06/29/17 08/03/17 Previous Rx's Medication Instructions Recorded Ibuprofen [Motrin] 600 mg PO Q8HR PRN #20 tab 12/01/17 Allergies Allergy/AdvReac Type Severity Reaction Status Date / Time No Known Allergies Allergy Verified 12/01/17 16:47 Review of Systems ROS Statement: Those systems with pertinent positive or pertinent negative responses have been documented in the HPI. ROS Other: All systems not noted in ROS Statement are negative. Past Medical History Past Medical History: Neurologic Disorder, Pulmonary Embolus (PE) Additional Past Medical History / Comment(s): carpal tunnel, neuropathy, migraine History of Any Multi-Drug Resistant Organisms: None Reported Past Surgical History: Section, Cholecystectomy, Uterine Ablation Additional Past Surgical History / Comment(s): Vaughn filter, D&C Past Anesthesia/Blood Transfusion Reactions: No Reported Reaction Past Psychological History: Anxiety, Bipolar, Depression Smoking Status: Current every day smoker Past Alcohol Use History: Occasional Past Drug Use History: None Reported General Exam - General Exam Comments Initial Comments: 36-year-old female. No acute distress. Patient is morbidly obese. Limitations: no limitations General appearance: alert, in no apparent distress Head exam: Present: atraumatic, normocephalic, normal inspection Eye exam: Present: normal appearance, PERRL, EOMI. Absent: scleral icterus, conjunctival injection, periorbital swelling ENT exam: Present: normal exam, mucous membranes moist Neck exam: Present: normal inspection. Absent: tenderness, meningismus, lymphadenopathy Respiratory exam: Present: normal lung sounds bilaterally. Absent: respiratory distress, wheezes, rales, rhonchi, stridor Cardiovascular Exam: Present: regular rate, normal rhythm, normal heart sounds. Absent: systolic murmur, diastolic murmur, rubs, gallop, clicks GI/Abdominal exam: Present: soft, normal bowel sounds. Absent: distended, tenderness, guarding, rebound, rigid Extremities exam: Present: normal inspection, full ROM, normal capillary refill. Absent: tenderness, pedal edema, joint swelling, calf tenderness Right Lower Leg exam: Present: normal inspection, full ROM Ankle exam: Present: normal inspection, full ROM Foot/Toe exam: Present: normal inspection (Calluses noted over the bottom of her foot.), full ROM, tenderness (Over distal third, fourth and fifth metatarsal.) Neurovascular tendon exam: Present: no vascular compromise Gait: observed and normal Back exam: Present: normal inspection Neurological exam: Present: alert, oriented X3, CN II-XII intact Psychiatric exam: Present: normal affect, normal mood Skin exam: Present: warm, dry, intact, normal color. Absent: rash Course Vital Signs 12/01/17 16:47 Temperature 97.8 F Pulse Rate 84 Respiratory 20 Rate Blood Pressure 138/63 O2 Sat by Pulse 95 Oximetry Medical Decision Making - Medical Decision Making This is a 36-year-old female presents for surgery later right foot pain. She's had this pain for the past few days. She is tender over the distal third fourth and fifth metatarsals. She does have calluses her foot. No bruising. No evidence of foreign bodies. Does have history of neuropathy. X-ray of the foot was completed. X-ray shows evidence of calcaneal spurring. There is no significant arthritis. Patient informed of these results. Discussed rest ice and elevate. Discussed anti-inflammatory medicine. Discussed following up with podiatry or primary care physician. All questions answered return parameters were discussed. - Radiology Data Radiology results: report reviewed Calcaneal spurring. No fracture seen. No sign of inflammatory arthritis. No changes. Disposition Clinical Impression: Calcaneal spur, Foot pain, right Disposition: HOME SELF-CARE Condition: Good Instructions: Plantar Fasciitis (ED), Heel Spur (ED) Additional Instructions: Patient advised to ice the foot as much as possible. Wear the [place] wrap. Follow -up with podiatry and primary care provider. Return to the emergency department if any alarming signs or symptoms occur. Prescriptions: Ibuprofen [Motrin] 600 mg PO Q8HR PRN #20 tab PRN Reason: Pain Referrals: Alex Babin MD [Primary Care Provider] - 1-2 days Hossein Reyes DPM [STAFF PHYSICIAN] - 1-2 days Time of Disposition: 17:25
== END 2017-12-01 17:36 | disposition home or self-care (01) ==
LOC: EC 16:31
DX: M77.31 Calcaneal spur, right foot (principal); F41.9 Anxiety disorder, unspecified; F32.9 Major depressive disorder, single episode, unspecified; F17.200 Nicotine dependence, unspecified, uncomplicated; E66.01 Morbid (severe) obesity due to excess calories; Z68.43 Body mass index [BMI] 50.0-59.9, adult; Z79.899 Other long term (current) drug therapy
CPT/HCPCS: 99284

== ENCOUNTER 2018-03-07 18:25 | Emergency (ER) | payer OTHER ==
[2018-03-07 18:54] VITALS: RESP 16
[2018-03-07] MEDS ORDERED: SODIUM CHLORIDE 0.9% 2,000 ML IV STA (19:33)
[2018-03-07] MEDS ORDERED: ONDANSETRON 4 MG/2 ML VIAL IVP STA (19:33)
[2018-03-07] MEDS ORDERED: DICYCLOMINE 10 MG/ML 2 ML AMP IM STA (19:34)
--- NOTE | 2018-03-07 19:37 | ED ---
General Adult HPI - General Chief complaint: Nausea/Vomiting/Diarrhea Stated complaint: DIARRHEA X 5 DAYS, NAUSEA Time Seen by Provider: 03/07/18 19:18 Source: patient Mode of arrival: wheelchair Limitations: no limitations - History of Present Illness Initial comments: Patient is a 37-year-old female presenting for diarrhea. Patient states that this is been present for the last 5 days and become more liquidy the last 3 days. She denies any nausea/vomiting as well as fever/chills. She admits to abdominal pain which is crampy and constant with some mild radiation from the left to the right side. There are no modifying factors and she also admits to some mild dizziness which she thinks is secondary to dehydration. - Related Data Home Medications Medication Instructions Recorded Confirmed HYDROcodone/APAP 5-325MG [[place] 1 tab PO BID PRN 10/24/16 03/07/18 5-325] Verapamil HCl [Verapamil ER] 120 mg PO HS 10/24/16 03/07/18 Ibuprofen 800 mg PO TID PRN 03/14/17 03/07/18 FLUoxetine HCL [PROzac] 20 mg PO DAILY 04/19/17 03/07/18 Furosemide [Lasix] 20 mg PO DAILY 04/19/17 03/07/18 Latanoprost [Xalatan 0.005%] 1 drop BOTH EYES HS 04/19/17 03/07/18 Lurasidone HCl [Latuda] 120 mg PO DAILY 04/19/17 03/07/18 Potassium Chloride ER [K-Dur 10] 10 meq PO DAILY 04/19/17 03/07/18 Cyclobenzaprine [Flexeril] 10 mg PO TID 05/18/17 03/07/18 Oxybutynin Chloride [Ditropan] 5 mg PO BID 05/18/17 03/07/18 busPIRone HCl [Buspar] 10 mg PO TID PRN 05/18/17 03/07/18 SUMAtriptan SUCCINATE [Imitrex] 50 mg PO BID PRN 06/29/17 03/07/18 traZODone HCL [Desyrel] 300 mg PO HS 06/29/17 03/07/18 Previous Rx's Medication Instructions Recorded Ibuprofen [Motrin] 600 mg PO Q8HR PRN #20 tab 12/01/17 Dicyclomine [Bentyl] 20 mg PO QID PRN #20 tablet 03/07/18 Allergies Allergy/AdvReac Type Severity Reaction Status Date / Time No Known Allergies Allergy Verified 03/07/18 18:54 Review of Systems ROS Statement: Those systems with pertinent positive or pertinent negative responses have been documented in the HPI. Constitutional: Negative for chills, fatigue and fever. HENT: Negative for congestion. Respiratory: Negative for chest tightness, shortness of breath and wheezing. Negative for cough Cardiovascular: Negative for chest pain and palpitations. Gastrointestinal: Positive for abdominal pain. Negative for abdominal distention , nausea and vomiting. Positive for diarrhea Genitourinary: Negative for dysuria. Musculoskeletal: Negative for back pain, neck pain and neck stiffness. Skin: Negative for color change. Neurological: Negative for dizziness, speech difficulty, weakness and positive for light-headedness. Psychiatric/Behavioral: Negative for agitation and confusion. Negative for anxiety ROS Other: All systems not noted in ROS Statement are negative. Past Medical History Past Medical History: Neurologic Disorder, Pulmonary Embolus (PE) Additional Past Medical History / Comment(s): carpal tunnel, neuropathy, migraine History of Any Multi-Drug Resistant Organisms: None Reported Past Surgical History: Section, Cholecystectomy, Uterine Ablation Additional Past Surgical History / Comment(s): [place] filter, D&C Past Anesthesia/Blood Transfusion Reactions: No Reported Reaction Past Psychological History: Anxiety, Bipolar, Depression Smoking Status: Current every day smoker Past Alcohol Use History: Occasional Past Drug Use History: None Reported General Exam - General Exam Comments Initial Comments: Constitutional: Pt is oriented to person, place, and time. Pt appears well- developed and well-nourished. No distress. HENT: Head: Normocephalic and atraumatic. Eyes: EOM are normal. Neck: Normal range of motion. Neck supple. Cardiovascular: Normal rate, regular rhythm, S1 normal, S2 normal and normal heart sounds. Exam reveals no gallop and no friction rub. No murmur heard. Pulmonary/Chest: Effort normal and breath sounds normal. No tachypnea and no bradypnea. No respiratory distress. No wheezes or rales noted. Abdominal: Soft. Bowel sounds are normal. Pt exhibits no shifting dullness, no distension, no pulsatile liver, no fluid wave, no abdominal bruit and no ascites. There is no tenderness. There is no rigidity, no rebound, no guarding, no tenderness at McBurney's point and negative Zuniga's sign. Musculoskeletal: Normal range of motion. Neurological: Pt is alert and oriented to person, place, and time. No cranial nerve deficit. Skin: Skin is warm and dry. No rash noted. Pt is not diaphoretic. No erythema. No pallor. Psychiatric: Pt has a normal mood and affect. Pt behavior is normal. Thought content normal. Limitations: no limitations Course Vital Signs 03/07/18 18:52 Temperature 98.3 F Pulse Rate 90 Respiratory 16 Rate Blood Pressure 130/85 O2 Sat by Pulse 100 Oximetry Medical Decision Making - Medical Decision Making Laboratory studies showed a hemoglobin was elevated at 16.3 which is consistent with dehydration. Electrolytes were relatively within normal limits but there was a mild anion gap which is likely secondary to dehydration. Is no evidence of acute kidney injury and urinalysis appear to be contaminated and therefore the patient was not given antibiotics. However, urine culture was obtained prior to disposition. Patient was given fluids as well as Bentyl and stated that her symptoms were significantly improved. It was explained that while there does not appear to be an emergent process, the etiology of the symptoms are still unclear but possibly related to viral illness and may need further workup as an outpatient if symptoms continue. Explained all labs and diagnostic test results and that we will discharge the patient home and patient is to follow up with PCP in 1-2 days and return to the ED if symptoms worsen. Pt is agreeable to plan. - Lab Data Result diagrams: 03/07/18 19:55 03/07/18 19:55 Lab Results 03/07/18 03/07/18 03/07/18 Range/Units 19:45 19:45 19:55 WBC 10.1 (3.8-10.6) k/uL RBC 5.25 (3.80-5.40) m/uL Hgb 16.3 H (11.4-16.0) gm/dL Hct 49.9 H (34.0-46.0) % MCV 95.1 (80.0-100.0) fL MCH 31.1 (25.0-35.0) pg MCHC 32.7 (31.0-37.0) g/dL RDW 14.7 (11.5-15.5) % Plt Count 345 (150-450) k/uL Neutrophils % 75 % Lymphocytes % 14 % Monocytes % 6 % Eosinophils % 4 % Basophils % 0 % Neutrophils # 7.6 (1.3-7.7) k/uL Lymphocytes # 1.4 (1.0-4.8) k/uL Monocytes # 0.6 (0-1.0) k/uL Eosinophils # 0.4 (0-0.7) k/uL Basophils # 0.0 (0-0.2) k/uL Sodium (137-145) mmol/L Potassium (3.5-5.1) mmol/L Chloride (98-107) mmol/L Carbon Dioxide (22-30) mmol/L Anion Gap mmol/L BUN (7-17) mg/dL Creatinine (0.52-1.04) mg/dL Est GFR (CKD-EPI)AfAm (>60 ml/min/1.73 sqM) Est GFR (CKD-EPI)NonAf (>60 ml/min/1.73 sqM) Glucose (74-99) mg/dL Calcium (8.4-10.2) mg/dL Magnesium (1.6-2.3) mg/dL Total Bilirubin (0.2-1.3) mg/dL AST (14-36) U/L ALT (9-52) U/L Alkaline Phosphatase (38-126) U/L Total Protein (6.3-8.2) g/dL Albumin (3.5-5.0) g/dL Lipase (23-300) U/L Urine Color Yellow Urine Appearance Cloudy H (Clear) Urine pH 6.0 (5.0-8.0) Ur Specific [place] 1.026 (1.001-1.035) Urine Protein 1+ H (Negative) Urine Glucose (UA) Negative (Negative) Urine Ketones Negative (Negative) Urine Blood Negative (Negative) Urine Nitrite Negative (Negative) Urine Bilirubin 1+ H (Negative) Urine Urobilinogen 2.0 (<2.0) mg/dL Ur Leukocyte Esterase Moderate H (Negative) Urine RBC 4 (0-5) /hpf Urine WBC 10 H (0-5) /hpf Ur Squamous Epith Cells 14 H (0-4) /hpf Urine Bacteria Many H (None) /hpf Urine Mucus Few H (None) /hpf Urine HCG, Qual Not Detected (Not Detectd) 03/07/18 Range/Units 19:55 WBC (3.8-10.6) k/uL RBC (3.80-5.40) m/uL Hgb (11.4-16.0) gm/dL Hct (34.0-46.0) % MCV (80.0-100.0) fL MCH (25.0-35.0) pg MCHC (31.0-37.0) g/dL RDW (11.5-15.5) % Plt Count (150-450) k/uL Neutrophils % % Lymphocytes % % Monocytes % % Eosinophils % % Basophils % % Neutrophils # (1.3-7.7) k/uL Lymphocytes # (1.0-4.8) k/uL Monocytes # (0-1.0) k/uL Eosinophils # (0-0.7) k/uL Basophils # (0-0.2) k/uL Sodium 142 (137-145) mmol/L Potassium 3.8 (3.5-5.1) mmol/L Chloride 105 (98-107) mmol/L Carbon Dioxide 19 L (22-30) mmol/L Anion Gap 18 mmol/L BUN 20 H (7-17) mg/dL Creatinine 1.20 H (0.52-1.04) mg/dL Est GFR (CKD-EPI)AfAm 67 (>60 ml/min/1.73 sqM) Est GFR (CKD-EPI)NonAf 58 (>60 ml/min/1.73 sqM) Glucose 96 (74-99) mg/dL Calcium 9.5 (8.4-10.2) mg/dL Magnesium 1.9 (1.6-2.3) mg/dL Total Bilirubin 0.7 (0.2-1.3) mg/dL AST 36 (14-36) U/L ALT 47 (9-52) U/L Alkaline Phosphatase 74 (38-126) U/L Total Protein 8.5 H (6.3-8.2) g/dL Albumin 5.0 (3.5-5.0) g/dL Lipase 136 (23-300) U/L Urine Color Urine Appearance (Clear) Urine pH (5.0-8.0) Ur Specific [place] (1.001-1.035) Urine Protein (Negative) Urine Glucose (UA) (Negative) Urine Ketones (Negative) Urine Blood (Negative) Urine Nitrite (Negative) Urine Bilirubin (Negative) Urine Urobilinogen (<2.0) mg/dL Ur Leukocyte Esterase (Negative) Urine RBC (0-5) /hpf Urine WBC (0-5) /hpf Ur Squamous Epith Cells (0-4) /hpf Urine Bacteria (None) /hpf Urine Mucus (None) /hpf Urine HCG, Qual (Not Detectd) Disposition Clinical Impression: Abdominal cramping, Diarrhea, Dehydration Disposition: HOME SELF-CARE Condition: Good Instructions: Acute Diarrhea (ED) Prescriptions: Dicyclomine [Bentyl] 20 mg PO QID PRN #20 tablet PRN Reason: Pain Is patient prescribed a controlled substance at d/c from ED?: No Referrals: Alex Babin MD [Primary Care Provider] - 1-2 days Time of Disposition: 21:08
[2018-03-07 19:59] LABS: Appearance,Urine Cloudy (Clear); Bacteria,Urine Many /hpf; Bilirubin,Urine 1+ (Negative); Blood,Urine Negative (Negative); Color,Urine Yellow; Glucose,Urine (UA) Negative (Negative); Ketones,Urine Negative (Negative); Leukocyte Esterase,Urine Moderate (Negative); Mucus,Urine Few /hpf; Nitrite,Urine Negative (Negative); Protein,Urine 1+ (Negative); RBC,Urine 4 /hpf (0-5); Specific Gravity,Urine 1.026 (1.001-1.035); Squamous Epithelial Cell,Urine 14 /hpf (0-4); WBC,Urine 10 /hpf (0-5)
[2018-03-07 20:09] LABS: Basophils % (A) 0 %; Eosinophils # (A) 0.4 k/uL (0-0.7); Eosinophils % (A) 4 %; HCT 49.9 % (34.0-46.0); HGB 16.3 gm/dL (11.4-16.0); Lymphocytes # (A) 1.4 k/uL (1.0-4.8); Lymphocytes % (A) 14 %; MCH 31.1 pg (25.0-35.0); MCHC 32.7 g/dL (31.0-37.0); MCV 95.1 fL (80.0-100.0); Mean Platelet Volume 6.3; Monocytes # (A) 0.6 k/uL (0-1.0); Monocytes % (A) 6 %; Neutrophils # (A) 7.6 k/uL (1.3-7.7); Neutrophils % (A) 75 %; Platelet Count 345 k/uL (150-450); RBC 5.25 m/uL (3.80-5.40); RDW 14.7 % (11.5-15.5); WBC 10.1 k/uL (3.8-10.6)
[2018-03-07 20:18] LABS: Calcium 9.5 mg/dL (8.4-10.2); Magnesium 1.9 mg/dL (1.6-2.3); Potassium 3.8 mmol/L (3.5-5.1); Total Bilirubin 0.7 mg/dL (0.2-1.3); Total Protein 8.5 g/dL (6.3-8.2)
[2018-03-07 21:24] VITALS: BP 136/70; PULSE 89; TEMP 98.7
== END 2018-03-07 21:25 | disposition home or self-care (01) ==
LOC: EC 18:25
DX: E86.0 Dehydration (principal); R19.7 Diarrhea, unspecified; R10.9 Unspecified abdominal pain; G62.9 Polyneuropathy, unspecified; F31.9 Bipolar disorder, unspecified; F41.9 Anxiety disorder, unspecified; F17.200 Nicotine dependence, unspecified, uncomplicated; Z86.711 Personal history of pulmonary embolism; Z90.49 Acquired absence of other specified parts of digestive tract; Z98.890 Other specified postprocedural states; Z79.899 Other long term (current) drug therapy
CPT/HCPCS: 99284; 96374; 96361; 96372; 36415; 80053; 83690; 83735; 85025; 81001; 81025; 87086; J0500; J2405

== ENCOUNTER 2018-04-19 13:54 | Observation (INO) | payer OTHER ==
[2018-04-19] MEDS ORDERED: SODIUM CHLORIDE 0.9% 1,000 ML IV STA (14:18)
--- NOTE | 2018-04-19 14:44 | ED ---
General Adult HPI - General Chief complaint: Chest Pain Stated complaint: CHEST PAIN Time Seen by Provider: 04/19/18 14:12 Source: patient, RN notes reviewed, old records reviewed Mode of arrival: EMS Limitations: no limitations - History of Present Illness Initial comments: This is a 37-year-old female the ER for evaluation. Patient does say for evaluation regarding chest pain. Severe chest pain left-sided chest pain shortness of breath chest pain rating to her arm. Tingling on her left arm. Patient has history of morbid obesity. Does have history of surgical issues with complication and DVT. Nonsmoker. Patient states she was walking in [place] had chest pain on the way to [place]. Chest pain resolved and then significantly worsened coming home. Patient's chest pain has persisted while at home and she comes to the ER for evaluation of again continue chest pain with exertional worsening - Related Data Home Medications Medication Instructions Recorded Confirmed Verapamil HCl [Verapamil ER] 120 mg PO HS 10/24/16 04/19/18 Ibuprofen 800 mg PO TID PRN 03/14/17 04/19/18 FLUoxetine HCL [PROzac] 20 mg PO DAILY 04/19/17 04/19/18 Latanoprost [Xalatan 0.005%] 1 drop BOTH EYES HS 04/19/17 04/19/18 Lurasidone HCl [Latuda] 120 mg PO DAILY 04/19/17 04/19/18 Cyclobenzaprine [Flexeril] 10 mg PO TID 05/18/17 04/19/18 busPIRone HCl [Buspar] 10 mg PO TID PRN 05/18/17 04/19/18 SUMAtriptan SUCCINATE [Imitrex] 50 mg PO BID PRN 06/29/17 04/19/18 traZODone HCL [Desyrel] 300 mg PO HS 06/29/17 04/19/18 hydrOXYzine PAMOATE [Vistaril] 25 mg PO HS 04/19/18 04/19/18 Previous Rx's Medication Instructions Recorded Dicyclomine [Bentyl] 20 mg PO QID PRN #20 tablet 03/07/18 Allergies Allergy/AdvReac Type Severity Reaction Status Date / Time No Known Allergies Allergy Verified 04/19/18 15:09 Review of Systems ROS Statement: Those systems with pertinent positive or pertinent negative responses have been documented in the HPI. ROS Other: All systems not noted in ROS Statement are negative. Past Medical History Past Medical History: Neurologic Disorder, Pulmonary Embolus (PE) Additional Past Medical History / Comment(s): carpal tunnel, neuropathy, migraine History of Any Multi-Drug Resistant Organisms: None Reported Past Surgical History: Section, Cholecystectomy, Uterine Ablation Additional Past Surgical History / Comment(s): [place] filter, D&C, c-sect x 2 Past Anesthesia/Blood Transfusion Reactions: No Reported Reaction Past Psychological History: Anxiety, Bipolar, Depression Smoking Status: Current every day smoker Past Alcohol Use History: Occasional Past Drug Use History: None Reported General Exam Limitations: no limitations General appearance: alert, in no apparent distress, anxious, obese Head exam: Present: atraumatic, normocephalic, normal inspection Eye exam: Present: normal appearance, PERRL, EOMI. Absent: scleral icterus, conjunctival injection, periorbital swelling ENT exam: Present: normal exam, mucous membranes moist Neck exam: Present: normal inspection. Absent: tenderness, meningismus, lymphadenopathy Respiratory exam: Present: normal lung sounds bilaterally. Absent: respiratory distress, wheezes, rales, rhonchi, stridor Cardiovascular Exam: Present: regular rate, normal rhythm, normal heart sounds. Absent: systolic murmur, diastolic murmur, rubs, gallop, clicks GI/Abdominal exam: Present: soft, normal bowel sounds. Absent: distended, tenderness, guarding, rebound, rigid Extremities exam: Present: normal inspection, full ROM, normal capillary refill. Absent: tenderness, pedal edema, joint swelling, calf tenderness Back exam: Present: normal inspection Neurological exam: Present: alert, oriented X3, CN II-XII intact Psychiatric exam: Present: normal affect, normal mood Skin exam: Present: warm, dry, intact, normal color. Absent: rash Course Vital Signs 04/19/18 04/19/18 13:59 15:36 Temperature 98.1 F Pulse Rate 81 74 Respiratory 18 18 Rate Blood Pressure 92/58 123/79 O2 Sat by Pulse 96 99 Oximetry - Reevaluation(s) Reevaluation #1: 04/19/18 15:45 Medical record is reviewed Reevaluation #2: 04/19/18 15:45 Patient complains of return chest pain worse than prior EKG Findings - EKG Comments: EKG Findings:: EKG shows normal sinus rhythm rate of 70, MD 160, QRS 80, QTC 467 Medical Decision Making - Medical Decision Making 37 female with history of morbid obesity coming in with chest pain. History of PE DVT but positive green field. Patient will be admitted for cardiac observation - Lab Data Result diagrams: 04/19/18 14:40 04/19/18 14:40 Lab Results 04/19/18 04/19/18 04/19/18 Range/Units 14:40 14:40 14:40 WBC 5.9 (3.8-10.6) k/uL RBC 4.37 (3.80-5.40) m/uL Hgb 13.5 (11.4-16.0) gm/dL Hct 39.4 (34.0-46.0) % MCV 90.2 (80.0-100.0) fL MCH 30.9 (25.0-35.0) pg MCHC 34.3 (31.0-37.0) g/dL RDW 14.7 (11.5-15.5) % Plt Count 266 (150-450) k/uL Neutrophils % 54 % Lymphocytes % 31 % Monocytes % 8 % Eosinophils % 5 % Basophils % 1 % Neutrophils # 3.2 (1.3-7.7) k/uL Lymphocytes # 1.8 (1.0-4.8) k/uL Monocytes # 0.5 (0-1.0) k/uL Eosinophils # 0.3 (0-0.7) k/uL Basophils # 0.0 (0-0.2) k/uL PT (9.0-12.0) sec INR (<1.2) APTT (22.0-30.0) sec D-Dimer (<0.60) mg/L FEU Sodium 139 (137-145) mmol/L Potassium 4.1 (3.5-5.1) mmol/L Chloride 107 (98-107) mmol/L Carbon Dioxide 25 (22-30) mmol/L Anion Gap 7 mmol/L BUN 14 (7-17) mg/dL Creatinine 0.90 (0.52-1.04) mg/dL Est GFR (CKD-EPI)AfAm >90 (>60 ml/min/1.73 sqM) Est GFR (CKD-EPI)NonAf 82 (>60 ml/min/1.73 sqM) Glucose 100 H (74-99) mg/dL Calcium 9.3 (8.4-10.2) mg/dL Magnesium 1.7 (1.6-2.3) mg/dL Total Bilirubin 0.2 (0.2-1.3) mg/dL AST 23 (14-36) U/L ALT 41 (9-52) U/L Alkaline Phosphatase 52 (38-126) U/L Total Creatine Kinase 76 (30-135) U/L CK-MB (CK-2) 0.3 (0.0-2.4) ng/mL CK-MB (CK-2) Rel Index 0.4 Troponin I <0.012 (0.000-0.034) ng/mL Total Protein 6.7 (6.3-8.2) g/dL Albumin 3.8 (3.5-5.0) g/dL Lipase 245 (23-300) U/L 04/19/18 Range/Units 14:40 WBC (3.8-10.6) k/uL RBC (3.80-5.40) m/uL Hgb (11.4-16.0) gm/dL Hct (34.0-46.0) % MCV (80.0-100.0) fL MCH (25.0-35.0) pg MCHC (31.0-37.0) g/dL RDW (11.5-15.5) % Plt Count (150-450) k/uL Neutrophils % % Lymphocytes % % Monocytes % % Eosinophils % % Basophils % % Neutrophils # (1.3-7.7) k/uL Lymphocytes # (1.0-4.8) k/uL Monocytes # (0-1.0) k/uL Eosinophils # (0-0.7) k/uL Basophils # (0-0.2) k/uL PT 10.0 (9.0-12.0) sec INR 1.0 (<1.2) APTT 24.3 (22.0-30.0) sec D-Dimer 0.74 H (<0.60) mg/L FEU Sodium (137-145) mmol/L Potassium (3.5-5.1) mmol/L Chloride (98-107) mmol/L Carbon Dioxide (22-30) mmol/L Anion Gap mmol/L BUN (7-17) mg/dL Creatinine (0.52-1.04) mg/dL Est GFR (CKD-EPI)AfAm (>60 ml/min/1.73 sqM) Est GFR (CKD-EPI)NonAf (>60 ml/min/1.73 sqM) Glucose (74-99) mg/dL Calcium (8.4-10.2) mg/dL Magnesium (1.6-2.3) mg/dL Total Bilirubin (0.2-1.3) mg/dL AST (14-36) U/L ALT (9-52) U/L Alkaline Phosphatase (38-126) U/L Total Creatine Kinase (30-135) U/L CK-MB (CK-2) (0.0-2.4) ng/mL CK-MB (CK-2) Rel Index Troponin I (0.000-0.034) ng/mL Total Protein (6.3-8.2) g/dL Albumin (3.5-5.0) g/dL Lipase (23-300) U/L - Radiology Data Radiology results: report reviewed (Chest x-rays negative for acute disease), image reviewed Critical Care Time Critical Care Time: Yes Total Critical Care Time: 31 Disposition Clinical Impression: Chest pain Disposition: ADMITTED IP TO THIS [facility] Condition: Undetermined Instructions: Chest Pain (ED) Is patient prescribed a controlled substance at d/c from ED?: No Referrals: Alex Babin MD [Primary Care Provider] - 1-2 days
--- NOTE | 2018-04-19 14:58 | XR ---
EXAMINATION TYPE: XR chest 2V DATE OF EXAM: 04/19/2018 COMPARISON: 04/19/2017 HISTORY: Chest pain TECHNIQUE: Frontal and lateral views of the chest are obtained. FINDINGS: Heart and mediastinum are normal. Lungs are clear. Diaphragm is normal. Bony thorax appear s normal. IMPRESSION: Normal chest. No change.
[2018-04-19 15:01] LABS: Basophils % (A) 1 %; Eosinophils # (A) 0.3 k/uL (0-0.7); Eosinophils % (A) 5 %; HCT 39.4 % (34.0-46.0); HGB 13.5 gm/dL (11.4-16.0); Lymphocytes # (A) 1.8 k/uL (1.0-4.8); Lymphocytes % (A) 31 %; MCH 30.9 pg (25.0-35.0); MCHC 34.3 g/dL (31.0-37.0); MCV 90.2 fL (80.0-100.0); Mean Platelet Volume 6.3; Monocytes # (A) 0.5 k/uL (0-1.0); Monocytes % (A) 8 %; Neutrophils # (A) 3.2 k/uL (1.3-7.7); Neutrophils % (A) 54 %; Platelet Count 266 k/uL (150-450); RBC 4.37 m/uL (3.80-5.40); RDW 14.7 % (11.5-15.5); WBC 5.9 k/uL (3.8-10.6)
[2018-04-19 15:07] LABS: ALT 41 U/L (9-52); AST 23 U/L (14-36); Albumin 3.8 g/dL (3.5-5.0); Alkaline Phosphatase 52 U/L (38-126); Anion Gap 7 mmol/L; Blood Urea Nitrogen 14 mg/dL (7-17); Calcium 9.3 mg/dL (8.4-10.2); Carbon Dioxide 25 mmol/L (22-30); Chloride 107 mmol/L (98-107); Glucose 100 mg/dL (74-99); Lipase 245 U/L (23-300); Magnesium 1.7 mg/dL (1.6-2.3); Potassium 4.1 mmol/L (3.5-5.1); Sodium 139 mmol/L (137-145); Total Bilirubin 0.2 mg/dL (0.2-1.3); Total Protein 6.7 g/dL (6.3-8.2)
[2018-04-19 15:10] LABS: Partial Thromboplastin Time 24.3 sec (22.0-30.0)
[2018-04-19 15:12] LABS: Creatine Kinase 76 U/L (30-135)
[2018-04-19 15:21] LABS: D-Dimer 0.74 mg/L FEU (<0.60)
[2018-04-19 15:25] LABS: Creatine Kinase MB 0.3 ng/mL (0.0-2.4); Troponin I <0.012 ng/mL (0.000-0.034)
[2018-04-19] MEDS ORDERED: HEPARIN SODIUM,PORCINE 5,000 UNIT/ML 1 ML VIAL IV ONE (15:40)
[2018-04-19] MEDS ORDERED: MORPHINE SULFATE 4 MG/ML SYRINGE IV PRN (15:40)
[2018-04-19] MEDS ORDERED: HEPARIN SODIUM,PORCINE 5,000 UNIT/ML 1 ML VIAL IV PRN (15:40)
[2018-04-19] MEDS ORDERED: NITROGLYCERIN SL TABS 0.4 MG TAB SUBLINGUAL PRN (15:40)
[2018-04-19] MEDS ORDERED: HEPARIN SOD,PORK IN 0.45% NACL 25,000 UNIT in 0.45% NACL 1 500ML.BAG IV SCH (15:45)
--- NOTE | 2018-04-19 17:49 | CT ---
EXAMINATION TYPE: CT angio chest DATE OF EXAM: 04/19/2018 5:17 PM COMPARISON: 04/19/2017 HISTORY: Elevated d-dimer. History of PE. CT DLP: 795.5 mGycm Automated exposure control for dose reduction was used. CONTRAST: CTA scan of the thorax is performed with IV Contrast, patient injected with 78 mL of Isovue 370, pulm onary embolism protocol. There are 3-D post processed images.. FINDINGS: The lungs are clear of infiltrate. There is no pleural effusion. There is no evidence of a pulmonary mass. Heart size is normal. Mediastinum is normal. There is no mediastinal adenopathy. Thoracic aorta appears normal. There is no aneurysm or dissection. I see no filling defects in the pulmonary arteri es. There are no hilar masses. Bony thorax is intact. IMPRESSION: NEGATIVE CT ANGIOGRAM OF THE CHEST. NO EVIDENCE OF PULMONARY EMBOLISM. No change.
[2018-04-19 18:20] VITALS: BMI 56.7
[2018-04-19 20:42] LABS: Creatine Kinase 71 U/L (30-135)
[2018-04-19] MEDS: METOPROLOL TARTRATE 25 MG TAB PO SCH (20:45)
[2018-04-19 20:55] LABS: Creatine Kinase MB 0.3 ng/mL (0.0-2.4); Troponin I <0.012 ng/mL (0.000-0.034)
[2018-04-19] MEDS ORDERED: SUMAtriptan SUCCINATE 50 MG TAB PO PRN (21:21)
[2018-04-19] MEDS ORDERED: DICYCLOMINE 20 MG TAB PO PRN (21:21)
[2018-04-19] MEDS ORDERED: busPIRone HCl 10 MG TAB PO PRN (21:21)
[2018-04-19] MEDS ORDERED: IBUPROFEN 800 MG TAB PO PRN (21:21)
[2018-04-19] MEDS ORDERED: ACETAMINOPHEN TAB 500 MG TAB PO PRN (21:23)
[2018-04-19] MEDS ORDERED: HYDROcodone/APAP 5-325MG 1 EACH TAB PO PRN (21:23)
[2018-04-19] MEDS ORDERED: TEMAZEPAM 15 MG CAP PO PRN (21:23)
[2018-04-19] MEDS ORDERED: ALPRAZolam 0.25 MG TAB PO PRN (21:23)
[2018-04-19] MEDS ORDERED: NICOTINE 14MG/24HR PATCH TRANSDERM SCH (21:45)
[2018-04-19] MEDS ORDERED: traZODone HCL 100 MG TAB PO SCH (22:14)
[2018-04-19] MEDS ORDERED: hydrOXYzine PAMOATE 25 MG CAP PO SCH (22:15)
[2018-04-19] MEDS ORDERED: PREGABALIN 75 MG CAP PO SCH (22:30)
[2018-04-19] MEDS: CYCLOBENZAPRINE 10 MG TAB PO SCH (22:47)
[2018-04-19] MEDS: PANTOPRAZOLE 40 MG TABLET PO SCH (22:48)
--- NOTE | 2018-04-19 23:48 | HP ---
HISTORY AND PHYSICAL DATE OF SERVICE: 04/19/2018. CHIEF COMPLAINT: Chest pain. HISTORY OF PRESENT ILLNESS: This 37-year-old woman who has a past medical history of multiple medical problems including history of DVT, GERD, history of DJD, history of pulmonary embolism, history of anxiety, bipolar, depression, being followed by [facility] in the outpatient setting, was complaining of chest pain. The patient had chest pain and left-sided shortness of breath radiating to the left arm. The patient had some tingling also. The patient also had elevated D-dimer of 0.74, but the chest CTA showed no evidence of pulmonary embolism. Patient admitted for evaluation and treatment. There is no history of any fever, rigors, chills at this time. No headache, loss of consciousness, seizures. PAST MEDICAL HISTORY: History of GERD, history of DJD, pulmonary embolism, history of DVT, history of anxiety, bipolar depression. MEDICATIONS: Prior to admission include: 1. Desyrel 300 mg at bedtime. 2. Vistaril 20 mg daily. 3. Buspar 10 mg t.i.d. p.r.n. 4. Verapamil ER 120 mg at bedtime. 5. Imitrex 50 mcg p.o. b.i.d. p.r.n. 7. Xalatan 0.05% 1 drop both eyes at bedtime. 8. Ibuprofen 800 mg t.i.d. p.r.n. 9. Prozac 20 mg daily. 10.Bentyl 20 mg q.i.d. p.r.n. 11.Celexa 10 mg p.o. q.i.d. ALLERGIES: None. FAMILY HISTORY: No history of heart disease or strokes in the family. SOCIAL HISTORY: History of smoking. No history of alcohol intake. REVIEW OF SYSTEMS: ENT: No diminished vision. CARDIOVASCULAR: No angina or palpitations. RESPIRATORY: As mentioned. : No dysuria. 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 ALLERGY/IMMUNOLOGY: As mentioned. ENDOCRINE: No history of diabetes hypothyroidism. CONSTITUTIONAL: As mentioned. PHYSICAL EXAM: Alert oriented x3. Pulse 74, blood pressure 120/82, respirations 16, temperature 98.7, pulse ox 98 percent on 2 L. HEENT: Conjunctivae normal. Oral mucosa moist. NECK: No jugular venous distention. No lymph node enlargement. CARDIOVASCULAR: S1 and S2 muffled. LUNGS: Breath sounds diminished in the bases. No rhonchi no crackles. ABDOMEN: Soft, nontender. No mass palpable. LEGS: No edema, no swelling. NERVOUS SYSTEM: Higher functions as mentioned. Moves all limbs equally. SKIN: No rash. LAB STUDIES: CBC within normal. D-dimer is 0.74. Glucose 100. ASSESSMENT: 1. Chest pain, possible unstable angina. 2. History of deep venous thrombosis. 3. History of gastroesophageal reflux disease. 4. History of degenerative joint disease. 5. History of pulmonary embolism. 6. History of hypertension. 7. History of anxiety, bipolar, depression. 8. History of nicotine dependence. RECOMMENDATIONS AND DISCUSSION: In this is a 37-year-old woman who presented with multiple complex medical issues, we will monitor the patient closely, continue the current management. Rule out myocardial infarction. IV heparin. Closely follow with Cardiology. Possible stress test. Guarded prognosis because of multiple complex medical issues. Further recommendations to follow. MMODL / IJN: [id number] / [email or web address]
[2018-04-20 03:38] LABS: Creatine Kinase 64 U/L (30-135)
[2018-04-20 03:52] LABS: Creatine Kinase MB 0.2 ng/mL (0.0-2.4); Troponin I <0.012 ng/mL (0.000-0.034)
[2018-04-20 06:57] LABS: Basophils % (A) 1 %; Eosinophils # (A) 0.3 k/uL (0-0.7); Eosinophils % (A) 6 %; HCT 38.3 % (34.0-46.0); HGB 12.7 gm/dL (11.4-16.0); Lymphocytes # (A) 2.1 k/uL (1.0-4.8); Lymphocytes % (A) 42 %; MCH 30.4 pg (25.0-35.0); MCV 92.2 fL (80.0-100.0); Mean Platelet Volume 6.5; Monocytes # (A) 0.3 k/uL (0-1.0); Monocytes % (A) 6 %; Neutrophils # (A) 2.3 k/uL (1.3-7.7); Neutrophils % (A) 44 %; Platelet Count 251 k/uL (150-450); RBC 4.16 m/uL (3.80-5.40); RDW 14.9 % (11.5-15.5); WBC 5.1 k/uL (3.8-10.6)
[2018-04-20 07:15] LABS: Calcium 8.5 mg/dL (8.4-10.2); Potassium 4.2 mmol/L (3.5-5.1)
[2018-04-20] MEDS ORDERED: PANTOPRAZOLE 40 MG TABLET PO SCH (07:30)
[2018-04-20] MEDS ORDERED: LURASIDONE 40 MG TAB PO SCH ×2 (09:00→14:20)
[2018-04-20] MEDS ORDERED: ASPIRIN 325 MG TAB PO SCH (09:00)
[2018-04-20] MEDS ORDERED: FLUoxetine HCL 20 MG CAP PO SCH (09:00)
[2018-04-20] MEDS ORDERED: ASPIRIN 81 MG PO SCH (09:00)
--- NOTE | 2018-04-20 10:50 | ECHOF ---
Referral Reason:cp, sob MEASUREMENTS -------- HEIGHT: 165.1 cm WEIGHT: 154.7 kg BP: 122/77 RVIDd: 2.9 cm (< 3.3) IVSd: 1.0 cm (0.6 - 1.1) LVIDd: 4.3 cm (3.9 - 5.3) LVPWd: 1.0 cm (0.6 - 1.1) IVSs: 1.5 cm LVIDs: 2.8 cm LVPWs: 1.4 cm LAESV Index (A-L): 24.18 ml/m Ao Diam: 3.6 cm (2.0 - 3.7) AV Cusp: 2.1 cm (1.5 - 2.6) LA Diam: 2.8 cm (2.7 - 3.8) EPSS: 0.5 cm MV E Blayne: 1.08 m/s MV DecT: 267 ms MV A Blayne: 0.76 m/s MV E/A Ratio: 1.44 RAP: 5.00 mmHg RVSP: 23.50 mmHg MV EF SLOPE: 85.71 mm/s (70 - 150) MV EXCURSION: 1.57 cm (> 18.000) FINDINGS -------- Sinus rhythm. This was a technically adequate study. LV size, wall thickness and systolic function are normal, with an EF greater than 55%. The right ventricle is normal in size and function. Normal LA size by volume 22+/-6 ml/m2. The right atrium is normal in size. The aortic valve is trileaflet, and appears structurally normal. No aortic stenosis or regurgitation. The mitral valve is normal. Mild mitral regurgitation is present. Trace tricuspid regurgitation present. Right ventricular systolic pressure is normal at < 35 mmHg. There is no evidence of pulmonary hypertension. Trace/mild (physiologic) pulmonic regurgitation. The aortic root size is normal. Normal inferior vena cava with normal inspiratory collapse consistent with estimated right atrial pre ssure of 5 mmHg. There is no pericardial effusion. CONCLUSIONS -------- 1. Sinus rhythm. 2. This was a technically adequate study. 3. LV size, wall thickness and systolic function are normal, with an EF greater than 55%. 4. Normal LA size by volume 22+/-6 ml/m2. 5. The aortic valve is trileaflet, and appears structurally normal. No aortic stenosis or regurgitati on. 6. Mild mitral regurgitation is present. 7. Trace tricuspid regurgitation present. 8. Right ventricular systolic pressure is normal at < 35 mmHg. 9. Trace/mild (physiologic) pulmonic regurgitation. 10. The aortic root size is normal. 11. There is no pericardial effusion. EQUAL OPPORTUNITY COUNSELOR: Aravind Garland RDCS
--- NOTE | 2018-04-20 11:41 | P.CRDCN ---
History of Present Illness History of present illness: Mrs. Alicia is a pleasant 37-year-old female past medical history significant for DVT, PE, andreas filter in place, chronic nicotine dependence and morbid obesity. She recently established with Dr. Bustamante in the office and is schedule for stress test, echo and Holter monitor coming up this week on . We have been asked to see her in consultation for chest pain. She states yesterday she walked to [facility] with her family in her normal state of health. While at [employer] singing she started feeling extremely short of breath and had to sit down and stop singing. This is abnormal for her. Then when walking home from [employer] she started feeling her heat flip flopping and beating fast. This persisted for few minutes and then she started feeling pressure in her chest. They stopped walking and got a ride home. Once home she laid down to rest. The palpitations subsided but the chest discomfort persisted. The pain started radiating down into her left arm and she started again feeling short of breath. She then started feeling dizzy and nauseated. She states she has felt palpitations off an on since admission. Telemetry tracings have been unremarkable. She states she has cut down on her smoking in the last few days only smoking 3 cigarettes per day from 1-2 packs per day. EKG reveals sinus mechanism with no abnormalities noted. Telemetry tracings have been unremarkable and indicate sinus mechanism with no acute arrhythmia. Chest xray negative for an acute cardiopulmonary process. CTA negative for PE with normal aorta. Laboratory data reviewed, hemoglobin 12.7, platelets 251, d-dimer 0.74, sodium 139, potassium 4.2, magnesium 1.7, creatinine 0.95, cardiac enzymes negative 3 , LDL 104, HDL 39, TSH 1.37. Current cardiac medications include verapamil 120 mg at bedtime. She also takes Lyrica, Desyrel, Vistaril, BuSpar, Imitrex, lacunar, Prozac, Bentyl and Flexeril. Review of Systems At the time of my exam: CONSTITUTIONAL: Denies fever. Denies chills. EYES: Denies blurred vision. Denies vision changes. Denies eye pain. EARS, NOSE, MOUTH & THROAT: Denies headache. Denies sore throat. Denies ear pain. CARDIOVASCULAR: Denies chest pain. Denies shortness of breath. Denies orthopnea. Denies PND. Denies palpitations. RESPIRATORY: Denies cough. GASTROINTESTINAL: Denies abdominal pain. Denies diarrhea. Denies constipation. Denies nausea. Denies vomiting. MUSCULOSKELETAL: Denies myalgias. INTEGUMENTARY: Denies pruitis. Denies rash. NEUROLOGIC: Denies numbness. Denies tingling. Denies weakness. PSYCHIATRIC: Denies anxiety. Denies depression. ENDOCRINE: Denies fatigue. Denies weight change. Denies polydipsia. Denies polyurina. GENITOURINARY: Denies burning, hematuria or urgency with micturation. HEMATOLOGIC: Denies history of anemia. Denies bleeding. 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 Mar[place], Therapist: Bertha FELDER. Today was patient's first visit. Patient does not know their names. Smoking Status: Current every day smoker Past Alcohol Use History: Occasional Past Drug Use History: None Reported Medications and Allergies Home Medications Medication Instructions Recorded Confirmed Type Verapamil HCl [Verapamil ER] 120 mg PO HS 10/24/16 04/19/18 History Ibuprofen 800 mg PO TID PRN 03/14/17 04/19/18 History FLUoxetine HCL [PROzac] 20 mg PO DAILY 04/19/17 04/19/18 History Latanoprost [Xalatan 0.005%] 1 drop BOTH EYES HS 04/19/17 04/19/18 History Lurasidone HCl [Latuda] 120 mg PO DAILY 04/19/17 04/19/18 History Cyclobenzaprine [Flexeril] 10 mg PO TID 05/18/17 04/19/18 History busPIRone HCl [Buspar] 10 mg PO TID PRN 05/18/17 04/19/18 History SUMAtriptan SUCCINATE [Imitrex] 50 mg PO BID PRN 06/29/17 04/19/18 History traZODone HCL [Desyrel] 300 mg PO HS 06/29/17 04/19/18 History Dicyclomine [Bentyl] 20 mg PO QID PRN #20 tablet 03/07/18 04/19/18 Rx Pregabalin [Lyrica] 75 mg PO HS 04/19/18 04/19/18 History hydrOXYzine PAMOATE [Vistaril] 25 mg PO HS 04/19/18 04/19/18 History Allergies Allergy/AdvReac Type Severity Reaction Status Date / Time No Known Allergies Allergy Verified 04/19/18 15:09 Physical Exam Vitals: Vital Signs Temp Pulse Pulse Resp BP BP Pulse Ox 04/20/18 04:00 98.3 F 73 16 122/77 98 04/20/18 03:53 16 04/20/18 00:00 98.5 F 67 16 93/57 96 04/19/18 23:37 16 04/19/18 20:00 98.7 F 74 16 128/84 98 04/19/18 16:32 97.6 F 75 18 143/89 99 04/19/18 16:28 98.1 F 68 18 118/71 99 04/19/18 15:36 74 18 123/79 99 04/19/18 13:59 98.1 F 81 18 92/58 96 Intake and Output 04/19/18 04/20/18 04/20/18 22:59 06:59 14:59 Intake Total 158.333 Balance 158.333 Intake: Intake, IV Titration 158.333 Amount Heparin Sod,Pork in 0.45% 158.333 NaCl 25,000 unit In 0.45 % NaCl 1 500ml.bag @ 6.4 UNITS/KG/HR 19.79 mls/hr IV .Q24H [facility] Rx#: [id number] Other: Voiding Method Toilet Toilet # Voids 2 Weight 154.675 kg Blood pressure 124/80 heart rate 74 afebrile maintaining oxygen saturation on room air GENERAL: This is a 37-year-old occasion female in no apparent distress at the time of my examination. Morbidly obese. HEENT: Head is atraumatic, normocephalic. Pupils are equal, round. Sclerae anicteric. Conjunctivae are clear. Mucous membranes of the mouth are moist. Neck is supple. There is no jugular venous distention. No carotid bruit is heard. LUNGS: Clear to auscultation no wheezes, rales or rhonchi. No chest wall tenderness is noted on palpation or with deep breathing. HEART: Regular rate and rhythm without murmurs, rubs or gallops. S1 and S2 heard. ABDOMEN: Soft, nontender. Bowel sounds are heard. No organomegaly noted. EXTREMITIES: Trace bilateral lower extremity nonpitting peripheral edema and no calf tenderness noted. VASCULAR: Radial and dorsalis pedis pulses palpated, no evidence of clubbing. NEUROLOGIC: Patient is awake, alert and oriented x3. Results 04/20/18 06:29 04/20/18 06:29 Cardiac Enzymes 04/19/18 04/19/18 04/19/18 Range/Units 14:40 14:40 20:18 AST 23 (14-36) U/L CK-MB (CK-2) 0.3 0.3 (0.0-2.4) ng/mL Troponin I <0.012 <0.012 (0.000-0.034) ng/mL 04/20/18 Range/Units 02:59 AST (14-36) U/L CK-MB (CK-2) 0.2 (0.0-2.4) ng/mL Troponin I <0.012 (0.000-0.034) ng/mL Coagulation 04/19/18 04/19/18 04/20/18 Range/Units 14:40 23:31 06:29 PT 10.0 (9.0-12.0) sec APTT 24.3 27.7 33.7 H (22.0-30.0) sec Lipids 04/20/18 Range/Units 06:29 Triglycerides 156 H (<150) mg/dL Cholesterol 174 (<200) mg/dL HDL Cholesterol 39 L (40-60) mg/dL CBC 04/19/18 04/20/18 Range/Units 14:40 06:29 WBC 5.9 5.1 (3.8-10.6) k/uL RBC 4.37 4.16 (3.80-5.40) m/uL Hgb 13.5 12.7 (11.4-16.0) gm/dL Hct 39.4 38.3 (34.0-46.0) % Plt Count 266 251 (150-450) k/uL Comprehensive Metabolic Panel 04/19/18 04/20/18 Range/Units 14:40 06:29 Sodium 139 139 (137-145) mmol/L Potassium 4.1 4.2 (3.5-5.1) mmol/L Chloride 107 108 H (98-107) mmol/L Carbon Dioxide 25 26 (22-30) mmol/L BUN 14 11 (7-17) mg/dL Creatinine 0.90 0.95 (0.52-1.04) mg/dL Glucose 100 H 87 (74-99) mg/dL Calcium 9.3 8.5 (8.4-10.2) mg/dL AST 23 (14-36) U/L ALT 41 (9-52) U/L Alkaline Phosphatase 52 (38-126) U/L Total Protein 6.7 (6.3-8.2) g/dL Albumin 3.8 (3.5-5.0) g/dL Current Medications Generic Name Dose Route Start Last Admin Trade Name Freq PRN Reason Stop Dose Admin Acetaminophen 500 mg 04/19/18 21:23 Tylenol Tab PO Q6HR PRN Fever and/ or Mild Pain Hydrocodone Bitart/Acetaminophen 1 each 04/19/18 21:23 [place] 5-325 PO Q6HR PRN Moderate Pain Alprazolam 0.25 mg 04/19/18 21:23 Xanax PO TID PRN Anxiety Aspirin 325 mg 04/20/18 09:00 Aspirin PO DAILY RIKI Buspirone HCl 10 mg 04/19/18 21:21 Buspar PO TID PRN Anxiety Cyclobenzaprine HCl 10 mg 04/19/18 22:00 04/19/18 22:47 Flexeril PO [address] [facility] Administration Dicyclomine HCl 20 mg 04/19/18 21:21 Bentyl PO QID PRN GI Upset Fluoxetine HCl 20 mg 04/20/18 09:[address] [facility] Heparin Sodium (Porcine) 0 unit 04/19/18 15:40 Heparin IV Q6HR PRN Low PTT Protocol Hydroxyzine Pamoate 25 mg 04/19/18 22:15 04/19/18 22:48 Vistaril PO 25 mg HS RIKI Administration Heparin Sodium/Sodium Chloride 500 mls @ 19.79 mls/hr 04/19/18 15:45 00:16 25,000 unit/ Sodium Chloride IV 9.47 units/kg/hr .Q24H RIKI 29.3 mls/hr Titration Protocol 6.4 UNITS/KG/HR Ibuprofen 800 mg 04/19/18 21:21 Motrin PO TID PRN Mild Pain Latanoprost 1 drops 04/20/18 21:00 Xalatan 0.005% BOTH EYES HS RIKI Lurasidone HCl 120 mg 04/20/18 09:00 Latuda PO DAILY RIKI Metoprolol Tartrate 25 mg 04/19/18 21:00 04/19/18 20:45 Lopressor PO 25 mg BID RIKI Administration Morphine Sulfate 4 mg 04/19/18 15:40 04/19/18 16:17 Morphine Sulfate (Inj) IV 4 mg Q5M PRN Administration Chest Pain Nicotine 1 patch 04/19/18 21:45 04/19/18 22:50 Habitrol 14mg/24hr Patch TRANSDERM Not Given HS [facility] Nitroglycerin 0.4 mg 04/19/18 15:40 Nitrostat SUBLINGUAL Q5M PRN Chest Pain Pantoprazole Sodium 40 mg 04/19/18 22:15 04/19/18 22:48 Protonix PO 40 mg AC-BRKFST RIKI Administration Pregabalin 75 mg 04/19/18 22:30 04/19/18 22:47 Lyrica PO 75 mg HS RIKI Administration Sumatriptan Succinate 50 mg 04/19/18 21:21 Imitrex PO BID PRN Migraine Headache Temazepam 15 mg 04/19/18 21:23 Restoril PO HS PRN Insomnia Trazodone HCl 300 mg 04/19/18 22:14 04/19/18 22:47 Desyrel PO 300 mg HS RIKI Administration Verapamil HCl 120 mg 04/20/18 21:00 Isoptin Sr PO HS RIKI Intake and Output 04/19/18 04/20/18 04/20/18 22:59 06:59 14:59 Intake Total 158.333 Balance 158.333 Intake: Intake, IV Titration 158.333 Amount Heparin Sod,Pork in 0.45% 158.333 NaCl 25,000 unit In 0.45 % NaCl 1 500ml.bag @ 6.4 UNITS/KG/HR 19.79 mls/hr IV .Q24H [facility] Rx#: [id number] Other: Voiding Method Toilet Toilet # Voids 2 Weight 154.675 kg 04/20/18 06:29 04/20/18 06:29 Assessment and Plan Assessment: ASSESSMENT Chest pain, atypical. An acute coronary event has been ruled out. Palpitations History of DVT and PE with Andreas filter in place Chronic nicotine dependence Morbid obesity PLAN Acute coronary event has been ruled out. Discontinue heparin infusion. Obtain 2-D echocardiogram and Doppler study to assess cardiac structure and function. Perform stress echocardiogram to assess for stress-induced cardiac ischemia. 24-hour Holter monitor as an outpatient. Stress test is negative she is stable from a cardiac perspective, follow-up with Dr. Bustamante as scheduled. Thank you kindly for this consultation. Nurse Practitioner note has been reviewed, I agree with a documented findings and plan of care. Patient was seen and examined.
[2018-04-20 12:13] VITALS: BP 116/69; PULSE 67; RESP 18; TEMP 97.6
[2018-04-20] MEDS ORDERED: DOBUTamine DRIP for NUC MED 500 MG in DEXTROSE/WATER 1 250ML.BAG IV ONE (12:30)
--- NOTE | 2018-04-20 13:39 | ECHOS ---
STRESS ECHOCARDIOGRAM DATE OF SERVICE: 04/20/2018 INDICATIONS: Chest pain. MEDICATIONS: BASELINE HEART RATE: 72 BASELINE BLOOD PRESSURE: 147/46 MAXIMUM HEART RATE: 147 MAXIMUM BLOOD PRESSURE: 215/89 85% MPHR: 156 100% MPHR: 183 METS: MAXIMUM STAGE REACHED: TOTAL EXERCISE TIME: CLINICAL INFORMATION: Baseline rhythm is sinus mechanism, rate of 72, normal axis and intervals, normal electrocardiogram. Baseline blood pressure 147/46 mmHg. Patient received infusion of dobutamine per protocol. Peak rate 147 beats per minute, which is equal to 80% maximum predicted heart rate. Peak blood pressure 215/89 mmHg. Electrocardiograph monitoring revealed rare PVCs. There was no evidence of diagnostic ischemic ST deviation. Baseline echocardiogram revealed normal wall thickening and motion. At peak exercise, there was no evidence of stress induced ischemia. CONCLUSION: 1. Normal electrocardiograph response to dobutamine infusion. 2. Normal stress echocardiogram with no evidence of stress induced ischemia. MMODL / IJN: [id number] /
[2018-04-20] MEDS: CYCLOBENZAPRINE 10 MG TAB PO SCH (14:07)
[2018-04-20] MEDS: METOPROLOL TARTRATE 25 MG TAB PO SCH (14:07)
[2018-04-20] MEDS: PANTOPRAZOLE 40 MG TABLET PO SCH (14:08)
--- NOTE | 2018-04-20 14:16 | US ---
EXAMINATION TYPE: US venous doppler duplex LE DATE OF EXAM: 04/20/2018 1:42 PM COMPARISON: NONE CLINICAL HISTORY: swelling, history of DVT, sob. SIDE PERFORMED: Bilateral TECHNIQUE: The lower extremity deep venous system is examined utilizing real time linear array sonog taurus with graded compression, doppler sonography and color-flow sonography. VESSELS IMAGED: External Iliac Vein (EIV) Common Femoral Vein Deep Femoral Vein Greater Saphenous Vein * Femoral Vein Popliteal Vein Small Saphenous Vein * Proximal Calf Veins, not well visualized (* superficial vessels) Morbidly obese patient, patient 5'5", 341lbs, technically difficult and limited study. Right Leg: Negative for DVT Left Leg: Negative for DVT IMPRESSION: 1. Bilateral lower extremity ultrasound negative for deep venous thrombosis.
[2018-04-20] MEDS ORDERED: hydrOXYzine PAMOATE 25 MG CAP PO SCH (21:00)
[2018-04-20] MEDS ORDERED: LATANOPROST 0.005% OPHTH DROPS 2.5 ML BTL BOTH EYES SCH (21:00)
[2018-04-20] MEDS ORDERED: traZODone HCL 100 MG TAB PO SCH (21:00)
[2018-04-20] MEDS ORDERED: VERAPAMIL SR 120 MG TABLET.ER PO SCH (21:00)
--- NOTE | 2018-04-21 08:32 | DS ---
DISCHARGE SUMMARY FINAL DIAGNOSES: 1. Chest pain possibly musculoskeletal. Negative stress test. 2. History of DVT. 3. History of gastroesophageal reflux disease. 4. History of degenerative joint disease. 5. History of pulmonary embolism. 6. Hypertension. 7. Anxiety, bipolar, depression. 8. History of nicotine dependence. DISCHARGE DISPOSITION: The patient is discharged in stable condition with guarded prognosis. HISTORY OF PRESENT ILLNESS: This 37-year-old with a past medical history of a chest pain, myocardial infarction ruled out. Chest CT was negative for pulmonary embolism. The patient had a stress echo which is negative. The patient is treated symptomatically and improved significantly and venous Doppler was also negative. On exam vitals are stable. Cardiovascular: S1, S2 Abdomen: Soft. Nervous System: No focal deficits. The patient is being discharged in stable condition with guarded prognosis. DISCHARGE ADVICE: 1. Diet cardiac. 2. Activity limited until followup. 3. Follow up with Dr. Babin in 2-3 days. 4. Follow the timber appraiser as advised. MEDICATIONS: 1. BuSpar 10 mg p.o. t.i.d. p.r.n. 2. Flexeril 10 mg t.i.d. 3. Prozac 20 mg daily. 4. Vistaril 25 mg q.h.s. 5. Ibuprofen 800 mg t.i.d. p.r.n. 6. Xalatan 0.05% 1 drop both eyes. 7. Latuda 120 mg b.i.d. 8. Lyrica 70 mg q.h.s. 9. Imitrex 50 mg b.i.d. p.r.n. 10.Desyrel 300 mg q.h.s. 11.Verapamil ER 120 mg q.h.s. 12.Bentyl 10 mg p.o. q.i.d. p.r.n. 13.Habitrol 14 daily. Once again, the patient will be discharged in stable condition with guarded prognosis. MMODL / IJN: [id number] /
== END 2018-04-20 15:36 ==
LOC: EC 13:54 → 3SUR 15:40 → 3OBS 04-20 07:00
PROVIDERS: ADMIT Hospitalist; ATTEND Hospitalist
DX: R07.89 Other chest pain (principal); R00.2 Palpitations; R06.02 Shortness of breath; R20.2 Paresthesia of skin; I10 Essential (primary) hypertension; K21.9 Gastro-esophageal reflux disease without esophagitis; R79.89 Other specified abnormal findings of blood chemistry; M19.90 Unspecified osteoarthritis, unspecified site; F41.9 Anxiety disorder, unspecified; F31.9 Bipolar disorder, unspecified; R42 Dizziness and giddiness; R11.0 Nausea; G62.9 Polyneuropathy, unspecified; F17.210 Nicotine dependence, cigarettes, uncomplicated; G43.909 Migraine, unspecified, not intractable, without status migrainosus; E66.01 Morbid (severe) obesity due to excess calories; Z68.43 Body mass index [BMI] 50.0-59.9, adult; Z86.718 Personal history of other venous thrombosis and embolism; Z86.711 Personal history of pulmonary embolism; Z95.828 Presence of other vascular implants and grafts; Z90.49 Acquired absence of other specified parts of digestive tract; Z79.899 Other long term (current) drug therapy
CPT/HCPCS: 99291 ×2; 96365 ×2; 96375 ×2; 96376 ×2; 96361 ×2; 96366 ×2; 36415; 93005; 93306; 85379; 80061; 80053; 80048; 84443; 82550 ×2; 82553 ×2; 83690; 83735; 84484 ×2; 85025 ×2; 85610; 85730 ×2; 84703; 71046; 93970; 71275; G0378 ×2; C8930; J1250; J2270; J1644 ×2; Q9950; Q9967; 93351

== ENCOUNTER 2018-05-01 22:07 | Emergency (ER) | payer OTHER ==
[2018-05-01] MEDS ORDERED: MORPHINE SULFATE 4 MG/ML SYRINGE IV STA (22:36)
[2018-05-01] MEDS ORDERED: ONDANSETRON 4 MG/2 ML VIAL IM STA (22:50)
--- NOTE | 2018-05-01 23:12 | ED ---
General Adult HPI - General Chief complaint: Chest Pain Stated complaint: Chest Pain Time Seen by Provider: 05/01/18 22:13 Source: patient, family, EMS, RN notes reviewed, old records reviewed Mode of arrival: EMS Limitations: no limitations - History of Present Illness Initial comments: This is a 37-year-old female the ER for evasive chest pain. Patient has left- sided chest pain started around and around 7 AM. Patient denies shortness of breath, pain is an DIRECTIONS. Stabbing burning radiating everywhere. Patient has no modifying factors for pain patient's pain. Patient is and persistent. She has had prior cardiac evaluation literally 1-2 weeks ago which at that time was negative. Patient does have underlying history of psychiatric illness - Related Data Home Medications Medication Instructions Recorded Confirmed Verapamil HCl [Verapamil ER] 120 mg PO HS 10/24/16 04/19/18 Ibuprofen 800 mg PO TID PRN 03/14/17 04/19/18 FLUoxetine HCL [PROzac] 20 mg PO DAILY 04/19/17 04/19/18 Latanoprost [Xalatan 0.005%] 1 drop BOTH EYES HS 04/19/17 04/19/18 Lurasidone HCl [Latuda] 120 mg PO DAILY 04/19/17 04/19/18 Cyclobenzaprine [Flexeril] 10 mg PO TID 05/18/17 04/19/18 busPIRone HCl [Buspar] 10 mg PO TID PRN 05/18/17 04/19/18 SUMAtriptan SUCCINATE [Imitrex] 50 mg PO BID PRN 06/29/17 04/19/18 traZODone HCL [Desyrel] 300 mg PO HS 06/29/17 04/19/18 Pregabalin [Lyrica] 75 mg PO HS 04/19/18 04/19/18 hydrOXYzine PAMOATE [Vistaril] 25 mg PO HS 04/19/18 04/19/18 Previous Rx's Medication Instructions Recorded Dicyclomine [Bentyl] 20 mg PO QID PRN #20 tablet 03/07/18 Nicotine 14Mg/24Hr Patch [Habitrol] 1 patch TRANSDERM HS #30 patch 04/20/18 Allergies Allergy/AdvReac Type Severity Reaction Status Date / Time No Known Allergies Allergy Verified 08/31/18 22:13 Review of Systems ROS Statement: Those systems with pertinent positive or pertinent negative responses have been documented in the HPI. ROS Other: All systems not noted in ROS Statement are negative. 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, migraine History of Any Multi-Drug Resistant Organisms: None Reported Past Surgical History: Section, Cholecystectomy, Uterine Ablation Additional Past Surgical History / Comment(s): [place] filter, D&C, c-sect x 2 Past Anesthesia/Blood Transfusion Reactions: No Reported Reaction Past Psychological History: Anxiety, Bipolar, Depression Smoking Status: Current every day smoker Past Alcohol Use History: Occasional Past Drug Use History: None Reported General Exam Limitations: no limitations General appearance: alert, in no apparent distress Head exam: Present: atraumatic, normocephalic, normal inspection Eye exam: Present: normal appearance, PERRL, EOMI. Absent: scleral icterus, conjunctival injection, periorbital swelling ENT exam: Present: normal exam, mucous membranes moist Neck exam: Present: normal inspection. Absent: tenderness, meningismus, lymphadenopathy Respiratory exam: Present: normal lung sounds bilaterally. Absent: respiratory distress, wheezes, rales, rhonchi, stridor Cardiovascular Exam: Present: regular rate, normal rhythm, normal heart sounds. Absent: systolic murmur, diastolic murmur, rubs, gallop, clicks GI/Abdominal exam: Present: soft, normal bowel sounds. Absent: distended, tenderness, guarding, rebound, rigid Extremities exam: Present: normal inspection, full ROM, normal capillary refill. Absent: tenderness, pedal edema, joint swelling, calf tenderness Back exam: Present: normal inspection Neurological exam: Present: alert, oriented X3, CN II-XII intact Psychiatric exam: Present: normal affect, normal mood Skin exam: Present: warm, dry, intact, normal color. Absent: rash Course Vital Signs 05/01/18 05/02/18 22:08 00:20 Temperature 97.7 F 97.3 F L Pulse Rate 82 70 Respiratory 20 18 Rate Blood Pressure 141/76 134/69 O2 Sat by Pulse 95 97 Oximetry - Reevaluation(s) Reevaluation #1: 05/01/18 23:12 Medical record and prior hospitalization reviewed EKG Findings - EKG Comments: EKG Findings:: EKG shows sinus rhythm rate of 82, MT 166, QRS 84, QTc 479 Medical Decision Making - Medical Decision Making 37 female the ER for evaluation of chest pain. Well-known to this emergency room well-known the ER for chest pain. Patient normal cardiac evaluation last hospitalization low risk patient can be discharged home - Lab Data Result diagrams: 05/01/18 23:16 05/01/18 23:16 Lab Results 05/01/18 05/01/18 05/01/18 Range/Units 23:16 23:16 23:16 WBC 6.0 (3.8-10.6) k/uL RBC 4.19 (3.80-5.40) m/uL Hgb 13.1 (11.4-16.0) gm/dL Hct 38.8 (34.0-46.0) % MCV 92.8 (80.0-100.0) fL MCH 31.3 (25.0-35.0) pg MCHC 33.7 (31.0-37.0) g/dL RDW 14.6 (11.5-15.5) % Plt Count 271 (150-450) k/uL Neutrophils % 55 % Lymphocytes % 30 % Monocytes % 5 % Eosinophils % 7 % Basophils % 1 % Neutrophils # 3.3 (1.3-7.7) k/uL Lymphocytes # 1.8 (1.0-4.8) k/uL Monocytes # 0.3 (0-1.0) k/uL Eosinophils # 0.4 (0-0.7) k/uL Basophils # 0.0 (0-0.2) k/uL Sodium 139 (137-145) mmol/L Potassium 3.9 (3.5-5.1) mmol/L Chloride 109 H (98-107) mmol/L Carbon Dioxide 23 (22-30) mmol/L Anion Gap 7 mmol/L BUN 12 (7-17) mg/dL Creatinine 1.00 (0.52-1.04) mg/dL Est GFR (CKD-EPI)AfAm 84 (>60 ml/min/1.73 sqM) Est GFR (CKD-EPI)NonAf 73 (>60 ml/min/1.73 sqM) Glucose 107 H (74-99) mg/dL Calcium 9.2 (8.4-10.2) mg/dL Magnesium 1.8 (1.6-2.3) mg/dL Total Bilirubin 0.3 (0.2-1.3) mg/dL AST 23 (14-36) U/L ALT 33 (9-52) U/L Alkaline Phosphatase 53 (38-126) U/L Total Creatine Kinase 71 (30-135) U/L CK-MB (CK-2) <0.2 (0.0-2.4) ng/mL CK-MB (CK-2) Rel Index Troponin I <0.012 (0.000-0.034) ng/mL NT-Pro-B Natriuret Pep pg/mL Total Protein 6.7 (6.3-8.2) g/dL Albumin 3.8 (3.5-5.0) g/dL Lipase 241 (23-300) U/L 05/01/18 Range/Units 23:16 WBC (3.8-10.6) k/uL RBC (3.80-5.40) m/uL Hgb (11.4-16.0) gm/dL Hct (34.0-46.0) % MCV (80.0-100.0) fL MCH (25.0-35.0) pg MCHC (31.0-37.0) g/dL RDW (11.5-15.5) % Plt Count (150-450) k/uL Neutrophils % % Lymphocytes % % Monocytes % % Eosinophils % % Basophils % % Neutrophils # (1.3-7.7) k/uL Lymphocytes # (1.0-4.8) k/uL Monocytes # (0-1.0) k/uL Eosinophils # (0-0.7) k/uL Basophils # (0-0.2) k/uL Sodium (137-145) mmol/L Potassium (3.5-5.1) mmol/L Chloride (98-107) mmol/L Carbon Dioxide (22-30) mmol/L Anion Gap mmol/L BUN (7-17) mg/dL Creatinine (0.52-1.04) mg/dL Est GFR (CKD-EPI)AfAm (>60 ml/min/1.73 sqM) Est GFR (CKD-EPI)NonAf (>60 ml/min/1.73 sqM) Glucose (74-99) mg/dL Calcium (8.4-10.2) mg/dL Magnesium (1.6-2.3) mg/dL Total Bilirubin (0.2-1.3) mg/dL AST (14-36) U/L ALT (9-52) U/L Alkaline Phosphatase (38-126) U/L Total Creatine Kinase (30-135) U/L CK-MB (CK-2) (0.0-2.4) ng/mL CK-MB (CK-2) Rel Index Troponin I (0.000-0.034) ng/mL NT-Pro-B Natriuret Pep 63 pg/mL Total Protein (6.3-8.2) g/dL Albumin (3.5-5.0) g/dL Lipase (23-300) U/L - Radiology Data Radiology results: report reviewed (Chest x-rays negative for acute disease), image reviewed Disposition Clinical Impression: Chest pain Disposition: HOME SELF-CARE Condition: Good Instructions: Chest Pain (ED) Is patient prescribed a controlled substance at d/c from ED?: No Referrals: Alex Babin MD [Primary Care Provider] - 1-2 days
--- NOTE | 2018-05-01 23:13 | XR ---
EXAMINATION TYPE: XR chest 2V DATE OF EXAM: 05/01/2018 COMPARISON: 04/19/2018 HISTORY: Chest pain TECHNIQUE: Frontal and lateral views of the chest are obtained. FINDINGS: Heart and mediastinum are normal. Lungs are clear. Costophrenic angles are clear. There ar e no hilar masses. Bony thorax is intact. IMPRESSION: Normal chest. No change.
[2018-05-01 23:28] LABS: Basophils % (A) 1 %; Eosinophils # (A) 0.4 k/uL (0-0.7); Eosinophils % (A) 7 %; HCT 38.8 % (34.0-46.0); HGB 13.1 gm/dL (11.4-16.0); Lymphocytes # (A) 1.8 k/uL (1.0-4.8); Lymphocytes % (A) 30 %; MCH 31.3 pg (25.0-35.0); MCHC 33.7 g/dL (31.0-37.0); MCV 92.8 fL (80.0-100.0); Mean Platelet Volume 6.9; Monocytes # (A) 0.3 k/uL (0-1.0); Monocytes % (A) 5 %; Neutrophils # (A) 3.3 k/uL (1.3-7.7); Neutrophils % (A) 55 %; Platelet Count 271 k/uL (150-450); RBC 4.19 m/uL (3.80-5.40); RDW 14.6 % (11.5-15.5)
[2018-05-01] MEDS ORDERED: MORPHINE SULFATE 4 MG/ML SYRINGE IM STA (23:34)
[2018-05-01 23:38] LABS: Albumin 3.8 g/dL (3.5-5.0); Calcium 9.2 mg/dL (8.4-10.2); Magnesium 1.8 mg/dL (1.6-2.3); Potassium 3.9 mmol/L (3.5-5.1); Total Bilirubin 0.3 mg/dL (0.2-1.3); Total Protein 6.7 g/dL (6.3-8.2)
[2018-05-01 23:48] LABS: Creatine Kinase 71 U/L (30-135)
[2018-05-02 00:01] LABS: Creatine Kinase MB <0.2 ng/mL (0.0-2.4); Troponin I <0.012 ng/mL (0.000-0.034)
[2018-05-02 00:21] VITALS: BP 134/69; PULSE 70; RESP 18; TEMP 97.3
== END 2018-05-02 00:20 | disposition home or self-care (01) ==
LOC: EC 22:07
DX: R07.9 Chest pain, unspecified (principal); F31.9 Bipolar disorder, unspecified; F41.9 Anxiety disorder, unspecified; F17.200 Nicotine dependence, unspecified, uncomplicated; Z79.899 Other long term (current) drug therapy; Z53.20 Procedure and treatment not carried out because of patient's decision for unspecified reasons; Z53.8 Procedure and treatment not carried out for other reasons
CPT/HCPCS: 36415; 93005; 83880; 80053; 82550; 82553; 83690; 83735; 84484; 85025; 71046; 99285; 96372; J2270

== ENCOUNTER 2018-05-25 20:37 | Emergency (ER) | payer OTHER ==
--- NOTE | 2018-05-25 21:47 | ED ---
Psych HPI - General Chief Complaint: Psychiatric Symptoms Stated Complaint: mental health Time Seen by Provider: 05/25/18 20:58 Source: patient, family Mode of arrival: ambulatory - History of Present Illness Initial Comments: Analysis a 37-year-old female with history of depression and bipolar who presents the emergency department today with her family for evaluation of homicidal and suicidal thoughts. Patient reports that she began hearing voices with increased frequency approximately 3 weeks ago, she states that these moist I'll her to harm or kill her family except for her daughter who she reports she has never had any thoughts of harming. She also reports that she's been hearing voices that tell her to harm herself. Patient also states that over the past couple of weeks she's began hearing laughter which is not there. This is new for her she's never experienced this in the past and she finds it quite distressing. Patient reports that she has not done anything to harm or self or others. That this evening she told her had she been feeling and he brought her to the ER for further evaluation. - Related Data Home Medications Medication Instructions Recorded Confirmed Ibuprofen 800 mg PO TID PRN 03/14/17 05/25/18 FLUoxetine HCL [PROzac] 20 mg PO DAILY 04/19/17 05/25/18 Latanoprost [Xalatan 0.005%] 1 drop BOTH EYES HS 04/19/17 05/25/18 Lurasidone HCl [Latuda] 120 mg PO DAILY 04/19/17 05/25/18 Cyclobenzaprine [Flexeril] 10 mg PO TID 05/18/17 05/25/18 busPIRone HCl [Buspar] 10 mg PO TID PRN 05/18/17 05/25/18 SUMAtriptan SUCCINATE [Imitrex] 50 mg PO BID PRN 06/29/17 05/25/18 traZODone HCL [Desyrel] 300 mg PO HS 06/29/17 05/25/18 Pregabalin [Lyrica] 75 mg PO HS 04/19/18 05/25/18 hydrOXYzine PAMOATE [Vistaril] 25 mg PO HS 04/19/18 05/25/18 Phentermine HCl [Adipex-P] 37.5 mg PO DAILY 05/25/18 05/25/18 Ranitidine HCl 150 mg PO HS 05/25/18 05/25/18 Verapamil HCl [Calan] 120 mg PO DAILY 05/25/18 05/25/18 Allergies Allergy/AdvReac Type Severity Reaction Status Date / Time No Known Allergies Allergy Verified 05/25/18 21:30 Review of Systems ROS Statement: Those systems with pertinent positive or pertinent negative responses have been documented in the HPI. ROS Other: All systems not noted in ROS Statement are negative. 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, migraine History of Any Multi-Drug Resistant Organisms: None Reported Past Surgical History: Section, Cholecystectomy, Uterine Ablation Additional Past Surgical History / Comment(s): [place] filter, D&C, c-sect x 2 Past Anesthesia/Blood Transfusion Reactions: No Reported Reaction Past Psychological History: Anxiety, Bipolar, Depression Smoking Status: Current every day smoker Past Alcohol Use History: Occasional Past Drug Use History: None Reported General Exam - General Exam Comments Initial Comments: GENERAL: Patient is well-developed and well-nourished. Patient is nontoxic and well- hydrated and is in no distress. Abdomen obese HENT: Normocephalic, Atraumatic. EYES: The sclera were anicteric and conjunctiva were pink and moist. Extraocular movements were intact and pupils were equal round and reactive to light. Eyelids were unremarkable. PULMONARY: Unlabored respirations. Good breath sounds bilaterally. No audible rales rhonchi or wheezing was noted. CARDIOVASCULAR: There is a regular rate and rhythm without any murmurs gallops or rubs. ABDOMEN: Soft and nontender with normal bowel sounds. SKIN: Skin is clear with no lesions or rashes and otherwise unremarkable. NEUROLOGIC: Patient is alert and oriented x3. Cranial nerves II through XII are grossly intact. Motor and sensory are also intact. Normal speech, volume and content. Symmetrical smile. MUSCULOSKELETAL: Normal extremities with adequate strength and full range of motion. No lower extremity swelling or edema. No calf tenderness. LYMPHATICS: No significant lymphadenopathy is noted PSYCHIATRIC: Depressed, homicidal, suicidal, experiencing auditory hallucinations. Able to interact normally. Does not appear to be distracted by internal stimuli. Limitations: no limitations Limitations: no limitations Course Vital Signs 05/25/18 05/26/18 20:46 03:42 Temperature 98.7 F 97.9 F Pulse Rate 87 73 Respiratory 20 18 Rate Blood Pressure 145/89 148/93 O2 Sat by Pulse 98 99 Oximetry Medical Decision Making - Medical Decision Making The patient was seen and evaluated, history is obtained from the patient Patient with auditory and visual hallucinations, homicidal and suicidal thoughts Patient medically cleared for evaluation by psych Patient was evaluated by EPS nurse, patient has a long history of hearing voices as well as depression and anxiety. Patient denied any homicidal or suicidal thoughts. No change in hearing voices recently. Patient did express some depression as well as feelings of loneliness and feeling as though she is known to talk to about her symptoms. Patient care was discussed with the psychiatrist on-call by the psychiatrist nurse. It is highly feel the patient is stable for discharge home with the plan for follow-up with the mobile crisis unit tomorrow. Patient is agreeable to this. Patient discharged home. - Lab Data Lab Results 05/25/18 05/25/18 Range/Units 21:30 21:30 Urine HCG, Qual Not Detected (Not Detectd) Urine Opiates Screen Not Detected (NotDetected) Ur Oxycodone Screen Not Detected (NotDetected) Urine Methadone Screen Not Detected (NotDetected) Ur Propoxyphene Screen Not Detected (NotDetected) Ur Barbiturates Screen Not Detected (NotDetected) U Tricyclic Antidepress Not Detected (NotDetected) Ur Phencyclidine Scrn Not Detected (NotDetected) Ur Amphetamines Screen Detected H (NotDetected) U Methamphetamines Scrn Not Detected (NotDetected) U Benzodiazepines Scrn Not Detected (NotDetected) Urine Cocaine Screen Not Detected (NotDetected) U Marijuana (THC) Screen Not Detected (NotDetected) Disposition Clinical Impression: Depression Disposition: HOME SELF-CARE Condition: Good Is patient prescribed a controlled substance at d/c from ED?: No Referrals: Alex Babin MD [Primary Care Provider] - 1-2 days Time of Disposition: 03:22
[2018-05-25 22:06] LABS: Amphetamine Screen,Urine Detected (NotDetected); Barbiturate Screen,Urine Not Detected (NotDetected); Benzodiazepines Screen,Urine Not Detected (NotDetected); Cocaine Screen,Urine Not Detected (NotDetected); Methadone Screen, Urine Not Detected (NotDetected); Opiate Screen,Urine Not Detected (NotDetected); Oxycodone Screen, Urine Not Detected (NotDetected); Phencyclidine Screen,Urine Not Detected (NotDetected); Tricyclic Antidepressant,Urine Not Detected (NotDetected); Urn Cannabinoid Scrn Not Detected (NotDetected)
[2018-05-26 03:50] VITALS: BP 148/93; PULSE 73; RESP 18; TEMP 97.9
== END 2018-05-26 03:50 | disposition home or self-care (01) ==
LOC: EC 20:37
DX: F31.30 Bipolar disorder, current episode depressed, mild or moderate severity, unspecified (principal); R45.850 Homicidal ideations; R45.851 Suicidal ideations; R44.0 Auditory hallucinations; K21.9 Gastro-esophageal reflux disease without esophagitis; F41.9 Anxiety disorder, unspecified; F17.200 Nicotine dependence, unspecified, uncomplicated; Z79.899 Other long term (current) drug therapy
CPT/HCPCS: 80306; 81025; 82075; 99285

== ENCOUNTER 2018-05-31 17:25 | Emergency (ER) | payer OTHER ==
[2018-05-31 17:38] VITALS: RESP 18
[2018-05-31 18:51] LABS: Amphetamine Screen,Urine Detected (NotDetected); Barbiturate Screen,Urine Not Detected (NotDetected); Benzodiazepines Screen,Urine Not Detected (NotDetected); Cocaine Screen,Urine Not Detected (NotDetected); Methadone Screen, Urine Not Detected (NotDetected); Opiate Screen,Urine Not Detected (NotDetected); Oxycodone Screen, Urine Not Detected (NotDetected); Phencyclidine Screen,Urine Not Detected (NotDetected); Tricyclic Antidepressant,Urine Not Detected (NotDetected); Urn Cannabinoid Scrn Not Detected (NotDetected)
--- NOTE | 2018-05-31 19:07 | ED ---
General Adult HPI - General Chief complaint: Psychiatric Symptoms Stated complaint: Mental Health Time Seen by Provider: 05/31/18 17:28 Source: patient, EMS, RN notes reviewed, old records reviewed Mode of arrival: EMS Limitations: no limitations - History of Present Illness Initial comments: This is a 37-year-old female the ER for evaluation of some mental health. Patient feeling difficult regarding thoughts that she's having towards her daughter significant monitoring normal. Patient does have history of psychiatric illness. No recent change in medications. No drugs or alcohol abuse today. No history of homicidal thoughts herself and she has not suicidal. Patient's symptoms occurred today and have persisted although she is the escalating currently - Related Data Home Medications Medication Instructions Recorded Confirmed Ibuprofen 800 mg PO TID PRN 03/14/17 05/31/18 FLUoxetine HCL [PROzac] 20 mg PO DAILY 04/19/17 05/31/18 Latanoprost [Xalatan 0.005%] 1 drop BOTH EYES HS 04/19/17 05/31/18 Lurasidone HCl [Latuda] 120 mg PO DAILY 04/19/17 05/31/18 Cyclobenzaprine [Flexeril] 10 mg PO TID 05/18/17 05/31/18 busPIRone HCl [Buspar] 10 mg PO TID PRN 05/18/17 05/31/18 traZODone HCL [Desyrel] 300 mg PO HS 06/29/17 05/31/18 Pregabalin [Lyrica] 75 mg PO HS 04/19/18 05/31/18 hydrOXYzine PAMOATE [Vistaril] 25 mg PO HS 04/19/18 05/31/18 Phentermine HCl [Adipex-P] 37.5 mg PO DAILY 05/25/18 05/31/18 Ranitidine HCl 150 mg PO HS 05/25/18 05/31/18 Verapamil HCl [Calan] 120 mg PO DAILY 05/25/18 05/31/18 Folic Acid 1 mg PO DAILY 05/31/18 05/31/18 SUMAtriptan SUCCINATE [Imitrex] 100 mg PO BID PRN 05/31/18 05/31/18 Allergies Allergy/AdvReac Type Severity Reaction Status Date / Time No Known Allergies Allergy Verified 05/31/18 17:55 Review of Systems ROS Statement: Those systems with pertinent positive or pertinent negative responses have been documented in the HPI. ROS Other: All systems not noted in ROS Statement are negative. 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, migraine History of Any Multi-Drug Resistant Organisms: None Reported Past Surgical History: Section, Cholecystectomy, Uterine Ablation Additional Past Surgical History / Comment(s): [place] filter, D&C, c-sect x 2 Past Anesthesia/Blood Transfusion Reactions: No Reported Reaction Past Psychological History: Anxiety, Bipolar, Depression Smoking Status: Current every day smoker Past Alcohol Use History: Occasional Past Drug Use History: None Reported General Exam Limitations: no limitations General appearance: alert, in no apparent distress Head exam: Present: atraumatic, normocephalic, normal inspection Eye exam: Present: normal appearance, PERRL, EOMI. Absent: scleral icterus, conjunctival injection, periorbital swelling ENT exam: Present: normal exam, mucous membranes moist Neck exam: Present: normal inspection. Absent: tenderness, meningismus, lymphadenopathy Respiratory exam: Present: normal lung sounds bilaterally. Absent: respiratory distress, wheezes, rales, rhonchi, stridor Cardiovascular Exam: Present: regular rate, normal rhythm, normal heart sounds. Absent: systolic murmur, diastolic murmur, rubs, gallop, clicks GI/Abdominal exam: Present: soft, normal bowel sounds. Absent: distended, tenderness, guarding, rebound, rigid Extremities exam: Present: normal inspection, full ROM, normal capillary refill. Absent: tenderness, pedal edema, joint swelling, calf tenderness Back exam: Present: normal inspection Neurological exam: Present: alert, oriented X3, CN II-XII intact Psychiatric exam: Present: normal affect, normal mood Skin exam: Present: warm, dry, intact, normal color. Absent: rash Course Vital Signs 05/31/18 17:25 Temperature 98 F Pulse Rate 86 Respiratory 18 Rate Blood Pressure 149/95 O2 Sat by Pulse 100 Oximetry - Reevaluation(s) Reevaluation #1: 05/31/18 19:25 Patient was medically clear for psychiatric evaluation Medical Decision Making - Medical Decision Making 37 female positive history of mental coming in with anger issues, anger reaction. Patient has discoid, patient was seen by psychiatric service in the emergency room and patient can be discharged - Lab Data Lab Results 05/31/18 Range/Units 18:13 Urine Opiates Screen Not Detected (NotDetected) Ur Oxycodone Screen Not Detected (NotDetected) Urine Methadone Screen Not Detected (NotDetected) Ur Propoxyphene Screen Not Detected (NotDetected) Ur Barbiturates Screen Not Detected (NotDetected) U Tricyclic Antidepress Not Detected (NotDetected) Ur Phencyclidine Scrn Not Detected (NotDetected) Ur Amphetamines Screen Detected H (NotDetected) U Methamphetamines Scrn Not Detected (NotDetected) U Benzodiazepines Scrn Not Detected (NotDetected) Urine Cocaine Screen Not Detected (NotDetected) U Marijuana (THC) Screen Not Detected (NotDetected) Disposition Clinical Impression: Bipolar disorder, Anger reaction Disposition: HOME SELF-CARE Condition: Good Instructions: Mood Disorders (ED) Is patient prescribed a controlled substance at d/c from ED?: No Referrals: Alex Babin MD [Primary Care Provider] - 1-2 days
[2018-05-31 19:42] VITALS: BP 129/87; PULSE 99; TEMP 97.8
== END 2018-05-31 19:40 | disposition home or self-care (01) ==
LOC: EC 17:25
DX: F31.9 Bipolar disorder, unspecified (principal); R45.4 Irritability and anger; K21.9 Gastro-esophageal reflux disease without esophagitis; G62.9 Polyneuropathy, unspecified; F41.9 Anxiety disorder, unspecified; F17.200 Nicotine dependence, unspecified, uncomplicated; Z79.899 Other long term (current) drug therapy
CPT/HCPCS: 80306; 82075; 99284

== ENCOUNTER 2018-06-19 22:07 | Emergency (ER) | payer OTHER ==
[2018-06-19 22:32] VITALS: TEMP 98
[2018-06-19] MEDS ORDERED: IPRATROPIUM-ALBUTEROL 3 ML NEB INHALATION STA (23:05)
--- NOTE | 2018-06-19 23:06 | ED ---
General Adult HPI - General Chief complaint: Upper Respiratory Infection Stated complaint: fever Source: patient, family Mode of arrival: ambulatory Limitations: no limitations - History of Present Illness Initial comments: Dictation was produced using [employer] dictation software. please excuse any grammatical, word or spelling errors. Chief Complaint: 37-year-old female presents with 7 days of cough. History of Present Illness: This 37-year-old female with multiple comorbidities presents with 7 days of cough. Patient states she's been sick for the last 7 days. She has her symptoms started as nasal congestion. No overt sick contacts. Patient states she's had a lingering cough. Patient denies any chest pain. No shortness of breath. She does have history of pulmonary embolus. The ROS documented in this emergency department record has been reviewed and confirmed by me. Those systems with pertinent positive or negative responses have been documented in the HPI. All other systems are other negative and/or noncontributory. - Related Data Home Medications Medication Instructions Recorded Confirmed Ibuprofen 800 mg PO TID PRN 03/14/17 06/19/18 FLUoxetine HCL [PROzac] 20 mg PO DAILY 04/19/17 06/19/18 Latanoprost [Xalatan 0.005%] 1 drop BOTH EYES HS 04/19/17 05/31/18 Lurasidone HCl [Latuda] 120 mg PO DAILY 04/19/17 06/19/18 Cyclobenzaprine [Flexeril] 10 mg PO TID 05/18/17 05/31/18 busPIRone HCl [Buspar] 10 mg PO TID PRN 05/18/17 05/31/18 traZODone HCL [Desyrel] 300 mg PO HS 06/29/17 05/31/18 Pregabalin [Lyrica] 75 mg PO HS 04/19/18 06/19/18 hydrOXYzine PAMOATE [Vistaril] 25 mg PO HS 04/19/18 06/19/18 Phentermine HCl [Adipex-P] 37.5 mg PO DAILY 05/25/18 06/19/18 Ranitidine HCl 150 mg PO HS 05/25/18 06/19/18 Verapamil HCl [Calan] 120 mg PO DAILY 05/25/18 06/19/18 Folic Acid 1 mg PO DAILY 05/31/18 06/19/18 SUMAtriptan SUCCINATE [Imitrex] 100 mg PO BID PRN 05/31/18 06/19/18 Previous Rx's Medication Instructions Recorded Benzonatate [Tessalon Perles] 100 mg PO TID PRN #12 capsule 06/20/18 Allergies Allergy/AdvReac Type Severity Reaction Status Date / Time No Known Allergies Allergy Verified 06/19/18 23:03 Review of Systems ROS Statement: Those systems with pertinent positive or pertinent negative responses have been documented in the HPI. ROS Other: All systems not noted in ROS Statement are negative. 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, migraine History of Any Multi-Drug Resistant Organisms: None Reported Past Surgical History: Section, Cholecystectomy, Uterine Ablation Additional Past Surgical History / Comment(s): [place] filter, D&C, c-sect x 2 Past Anesthesia/Blood Transfusion Reactions: No Reported Reaction Past Psychological History: Anxiety, Bipolar, Depression Smoking Status: Current every day smoker Past Alcohol Use History: Occasional Past Drug Use History: None Reported General Exam - General Exam Comments Initial Comments: PHYSICAL EXAM: General Impression: Alert and oriented x3, not in acute distress HEENT: Normocephalic atraumatic, extra-ocular movements intact, pupils equal and reactive to light bilaterally, mucous membranes moist. Cardiovascular: Heart regular rate and rhythm, S1&S2 audible, no murmurs, rubs or gallops Chest: Lungs clear to auscultation bilaterally, no rhonchi, no wheeze, no rales Abdomen: Bowel sounds present, abdomen soft, non-tender, non-distended, no organomegaly Musculoskeletal: Pulses present and equal in all extremities, no peripheral edema Motor: Power 5/5 bilaterally, no focal deficits noted Neurological: CN II-XII grossly intact, no focal motor or sensory deficits noted Skin: Intact with no visualized rashes Psych: Normal affect and mood Limitations: no limitations Course Vital Signs 06/19/18 06/19/18 06/19/18 22:28 23:13 23:22 Temperature 98.0 F Pulse Rate 89 70 73 Respiratory 16 16 16 Rate Blood Pressure 121/76 O2 Sat by Pulse 98 Oximetry Medical Decision Making - Medical Decision Making ED course: 37-year-old female presents with cough likely secondary to viral URI. Signs upon arrival are within acceptable limits. Patient is well- appearing. She is afebrile. No clinical suspicion of pulmonary embolus at this time. X-rays obtained. X-ray shows no acute processes. Patient likely having limited cough secondary to viral URI. Patient given prescription for Tessalon Perles. She is told to take medications only when she feels like her coughing severe otherwise she is told that her coughing symptoms should improve over the next several days. Patient advised to follow-up with primary care physician upon discharge. Disposition Clinical Impression: Cough Disposition: HOME SELF-CARE Condition: Good Instructions: Upper Respiratory Infection (ED) Prescriptions: Benzonatate [Tessalon Perles] 100 mg PO TID PRN #12 capsule PRN Reason: Cough Is patient prescribed a controlled substance at d/c from ED?: No Referrals: Alex Babin MD [Primary Care Provider] - 1-2 days Time of Disposition: 00:06
--- NOTE | 2018-06-19 23:07 | XR ---
EXAMINATION TYPE: XR chest 2V DATE OF EXAM: 06/19/2018 COMPARISON: 05/01/2018 HISTORY: Fever and cold TECHNIQUE: Frontal and lateral views of the chest are obtained. FINDINGS: Heart and mediastinum are normal. Lungs are clear. Diaphragm is normal. Bony thorax appear s normal. IMPRESSION: Normal chest. No change.
[2018-06-20 00:07] VITALS: BP 112/62; PULSE 89; RESP 18
== END 2018-06-20 00:13 | disposition home or self-care (01) ==
LOC: EC 22:07
DX: R05 Cough (principal); R50.9 Fever, unspecified; R09.81 Nasal congestion; F41.9 Anxiety disorder, unspecified; F31.9 Bipolar disorder, unspecified; K21.9 Gastro-esophageal reflux disease without esophagitis; F17.200 Nicotine dependence, unspecified, uncomplicated; Z86.718 Personal history of other venous thrombosis and embolism; Z86.711 Personal history of pulmonary embolism; Z79.899 Other long term (current) drug therapy
CPT/HCPCS: 71046; 94640; 99283

== ENCOUNTER 2018-08-26 21:24 | Emergency (ER) | payer OTHER ==
[2018-08-26 22:35] VITALS: TEMP 98.2
--- NOTE | 2018-08-27 00:28 | XR ---
EXAMINATION TYPE: XR chest 2V DATE OF EXAM: 08/27/2018 COMPARISON: 06/19/2018 HISTORY: Chest pain TECHNIQUE: Frontal and lateral views of the chest are obtained. FINDINGS: Heart and mediastinum are normal. Lungs are clear. Diaphragm is normal. Bony thorax is nor mal. IMPRESSION: Normal chest. No change.
[2018-08-27 01:13] VITALS: BP 108/70; PULSE 79; RESP 16
--- NOTE | 2018-08-27 01:56 | ED ---
URI HPI - General Chief Complaint: Upper Respiratory Infection Stated Complaint: coughing, dry mouth Time Seen by Provider: 08/26/18 23:57 Source: patient Mode of arrival: ambulatory Limitations: no limitations - History of Present Illness Initial Comments: This is a 37-year-old female who denies past medical history presenting today for chief of cough and congestion for 1 week. Patient states that she has felt congested and had a cough with sputum production for the past week. Patient denies any fever, chills, body aches, night sweats, shortness breath, dyspnea or exertion, chest pain, diarrhea, vomiting, dull pain, back pain. Patient does admit to smoking 1 pack per day of cigarettes. Patient denies any calf pain or swelling, hemoptysis, exogenous estrogen use, history of cancer or previous DVT or PE. Patient denies any sore throat or ear pain. Patient denies noting wheezing, or experiencing respiratory distress. Patient does admit to dry mouth sensation, however patient has been tolerating by mouth intake. Patient states that she is concerned about the cough as he keeps her up at night. Remainder was negative, patient denies any recent f nausea or vomiting, numbness or tingling, dysuria or hematuria, constipation or diarrhea, headaches or visual changes, or any other complaints.. Upon arrival patient appears well, there are no signs of toxicity or respiratory distress. Vital signs within normal limits. - Related Data Home Medications Medication Instructions Recorded Confirmed Cyclobenzaprine [Flexeril] 10 mg PO TID 05/18/17 08/26/18 traZODone HCL [Desyrel] 300 mg PO HS 06/29/17 08/26/18 Pregabalin [Lyrica] 75 mg PO HS 04/19/18 08/26/18 hydrOXYzine PAMOATE [Vistaril] 25 mg PO HS 04/19/18 08/26/18 Phentermine HCl [Adipex-P] 37.5 mg PO DAILY 05/25/18 08/26/18 Ranitidine HCl 150 mg PO HS 05/25/18 08/26/18 Verapamil HCl [Calan] 120 mg PO DAILY 05/25/18 08/26/18 Folic Acid 1 mg PO DAILY 05/31/18 08/26/18 SUMAtriptan SUCCINATE [Imitrex] 100 mg PO BID PRN 05/31/18 08/26/18 LORazepam [Ativan] 1 mg PO DAILY PRN 08/26/18 08/26/18 Lurasidone [Latuda] 80 mg PO DAILY 08/26/18 08/26/18 Venlafaxine HCl [Effexor XR] 150 mg PO DAILY 08/26/18 08/26/18 Previous Rx's Medication Instructions Recorded Benzonatate [Tessalon Perles] 100 mg PO TID 3 Days #9 cap 08/27/18 Ipratropium Rocheport 0.06%Nasal 2 spray EA NOSTRIL BID 3 Days #1 08/27/18 [Atrovent Nasal 0.06%] bottle predniSONE 20 mg PO DAILY 5 Days #5 tab 08/27/18 Allergies Allergy/AdvReac Type Severity Reaction Status Date / Time No Known Allergies Allergy Verified 08/26/18 23:23 Review of Systems ROS Statement: Those systems with pertinent positive or pertinent negative responses have been documented in the HPI. ROS Other: All systems not noted in ROS Statement are negative. Constitutional: Denies: fever, chills, night sweats Eyes: Denies: eye pain ENT: Denies: ear pain, throat pain, dental pain Respiratory: Reports: cough. 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 Eye: Pupils are equal, round and reactive to light, extra-ocular movements are intact. No nystagmus. There is normal conjunctiva bilaterally. No signs of icterus. Ears, nose, mouth and throat: There are moist mucous membranes and no oral lesions. Tympanic members was normal as by Doppler Neck: The neck is supple, there is no tenderness or JVD. Oropharynx is mildly erythematous, no tonsillar erythema and enlargement or exudates. No tonsillar crypts. Uvula midline. No anterior cervical lymphadenopathy. . Rhinorrhea noted, postnasal drip. Cardiovascular: There is a regular rate and rhythm. No murmur, rub or gallop is appreciated. Respiratory: Lungs are clear to auscultation, respirations are non-labored, breath sounds are equal. No wheezes, stridor, rales, or rhonchi. Gastrointestinal: Soft, non-distended, non-tender abdomen without masses or organomegaly noted. There is no rebound or guarding present. No CVA tenderness. Bowel sounds are unremarkable. Musculoskeletal: Normal ROM, no tenderness. Strength 5/5. Sensation intact. Pulses equal bilaterally 2+. Neurological: A&O x 3. CN II-XII intact, There are no obvious motor or sensory deficits. Coordination appears grossly intact. Speech is normal. Skin: Skin is warm and dry and no rashes or lesions are noted. Psychiatric: Cooperative, appropriate mood & affect, normal judgment. Limitations: no limitations Course Vital Signs 08/26/18 08/27/18 08/27/18 22:28 01:12 02:05 Temperature 98.2 F Pulse Rate 99 79 Respiratory 20 16 16 Rate Blood Pressure 113/86 108/70 O2 Sat by Pulse 98 96 Oximetry Medical Decision Making - Medical Decision Making Patient's vital signs stable, patient is well-appearing. Audible dry cough on examination. Lung sounds are clear to auscultation wheezes stridor or rhonchi. Patient does have clear rhinorrhea as well as postnasal drip present on examination. Influenza testing negative. Chest x-ray negative for acute process. No click findings concerning for pneumonia at this time. Patient will be given medications for symptomatic treatment including nasal spray for congestion, Tessalon Perles for cough suppression and steroid given history of smoking. Patient is agreeable to plan and discharged. Patient denies any questions at this time. All return parameters discussed at length with patient prior to discharge who verbalize understanding of plan. Case discussed with Dr. Gong who agrees with impression and plan. - Lab Data Lab Results 08/27/18 Range/Units 00:16 Influenza Type A RNA Not Detected (Not Detectd) Influenza Type B (PCR) Not Detected (Not Detectd) Disposition Clinical Impression: URI with cough and congestion Disposition: HOME SELF-CARE Condition: Good Instructions: Upper Respiratory Infection (ED) Additional Instructions: Please use medication as discussed. Please follow-up with family doctor in the next 2 days. Please return to emergency room if the symptoms increase or worsen or for any other concerns. Prescriptions: Benzonatate [Tessalon Perles] 100 mg PO TID 3 Days #9 cap Ipratropium Rocheport 0.06%Nasal [Atrovent Nasal 0.06%] 2 spray EA NOSTRIL BID 3 Days #1 bottle predniSONE 20 mg PO DAILY 5 Days #5 tab Is patient prescribed a controlled substance at d/c from ED?: No Referrals: Alex Babin MD [Primary Care Provider] - 1-2 days Time of Disposition: 01:56
== END 2018-08-27 02:07 | disposition home or self-care (01) ==
LOC: EC 21:24
DX: J06.9 Acute upper respiratory infection, unspecified (principal); K21.9 Gastro-esophageal reflux disease without esophagitis; M19.90 Unspecified osteoarthritis, unspecified site; F31.9 Bipolar disorder, unspecified; F41.9 Anxiety disorder, unspecified; F17.210 Nicotine dependence, cigarettes, uncomplicated; Z86.711 Personal history of pulmonary embolism; Z86.718 Personal history of other venous thrombosis and embolism; Z79.899 Other long term (current) drug therapy
CPT/HCPCS: 71046; 87502; 99283

== ENCOUNTER 2018-09-21 19:33 | Emergency (ER) | payer OTHER ==
[2018-09-21 20:15] LABS: Glucose,Whole Blood 137 mg/dL (75-99)
[2018-09-21] MEDS ORDERED: METOCLOPRAMIDE 5 MG/ML 2 ML VIAL IVP STA (20:51)
[2018-09-21] MEDS ORDERED: SODIUM CHLORIDE 0.9% 1,000 ML IV STA ×2 (20:51)
[2018-09-21] MEDS ORDERED: ACETAMINOPHEN IV (For NPO) 1,000 MG in EMPTY BAG 1 BAG IVPB ONE (20:52)
[2018-09-21] MEDS ORDERED: DEXAMETHASONE SOD PHOSPHATE 10 MG/ML 1 ML VIAL IV STA (20:52)
[2018-09-21] MEDS ORDERED: LABETALOL 5 MG/ML VIAL MDV IVP STA ×2 (20:55→21:33)
--- NOTE | 2018-09-21 20:55 | ED ---
Headache HPI - General Chief Complaint: Headache Stated Complaint: Headache, Nausea Time Seen by Provider: 09/21/18 20:46 Mode of arrival: ambulatory Limitations: no limitations - History of Present Illness Initial Comments: This 37-year-old white female presents with a complaint of a headache. This started approximately 2 hours prior to arrival. She states that it was more in the occipital region and is pressure-like. She does have a history of migraine headaches and this felt similar. She was having some nausea, phonophobia, and photophobia. She then relates that the pain seemed to radiate into her neck bilaterally. She also felt a heaviness throughout her bilateral arms and entire torso. She denies any fevers or chills. There is been no trauma. No other complaints or modifying factors. She did take some Imitrex and Toradol prior to the neck pain starting. This did help the headache slightly. She does relate chronic neck pain issues as well. - Related Data Home Medications Medication Instructions Recorded Confirmed Cyclobenzaprine [Flexeril] 10 mg PO TID 05/18/17 09/21/18 traZODone HCL [Desyrel] 300 mg PO HS 06/29/17 09/21/18 Pregabalin [Lyrica] 75 mg PO HS 04/19/18 09/21/18 hydrOXYzine PAMOATE [Vistaril] 25 mg PO HS 04/19/18 09/21/18 Phentermine HCl [Adipex-P] 37.5 mg PO DAILY 05/25/18 09/21/18 Ranitidine HCl 150 mg PO HS 05/25/18 09/21/18 Verapamil HCl [Calan] 120 mg PO DAILY 05/25/18 09/21/18 Folic Acid 1 mg PO DAILY 05/31/18 09/21/18 SUMAtriptan SUCCINATE [Imitrex] 100 mg PO BID PRN 05/31/18 09/21/18 Lurasidone [Latuda] 80 mg PO HS 08/26/18 09/21/18 Venlafaxine HCl [Effexor XR] 150 mg PO DAILY 08/26/18 09/21/18 Allergies Allergy/AdvReac Type Severity Reaction Status Date / Time No Known Allergies Allergy Verified 09/21/18 20:49 Review of Systems ROS Statement: Those systems with pertinent positive or pertinent negative responses have been documented in the HPI. ROS Other: All systems not noted in ROS Statement are negative. 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 VITAL SIGNS: Heart rate, blood pressure, respiratory rate reviewed as recorded in nurse's notes. EYES: Pupils are round and reactive. Extraocular movements are intact. No conjunctival / lid redness or swelling. ENT: No external evidence of injury, swelling, or ecchymosis. Airway is patent. Throat is clear. NECK: There is mild tenderness noted to the bilateral neck. There is some pain with range of motion of neck. No meningeal signs. No swelling or evidence of injury. No subcutaneous emphysema. Trachea is midline. No thyroid mass. HEART: Regular rate and rhythm. Good peripheral pulses. LUNGS/CHEST: Breath sounds clear and equal bilaterally. No rales, rhonchi, or wheezes. No ecchymosis, subcutaneous emphysema, or tenderness. ABDOMEN: Abdomen soft without tenderness. No palpable masses or organomegaly. No peritoneal signs. No abdominal wall swelling or ecchymosis. EXTREMITIES: No extremity tenderness. Normal muscle tone and function. No thoracolumbar tenderness. NEUROLOGIC: Sensation is grossly intact. Cranial nerve exam reveals face is symmetrical, tongue is midline, speech is clear. SKIN: No abrasions or ecchymosis is noted. No induration or masses noted. PSYCHIATRIC: Alert and oriented. Appropriate behavior and judgment. Limitations: no limitations Course Vital Signs 09/21/18 09/21/18 09/21/18 19:54 20:00 20:10 Temperature 98.3 F Pulse Rate 79 79 96 Respiratory 16 21 16 Rate Blood Pressure 183/115 183/115 O2 Sat by Pulse 96 95 Oximetry 09/21/18 09/21/18 09/21/18 20:20 20:30 20:40 Temperature Pulse Rate 85 79 78 Respiratory 20 20 20 Rate Blood Pressure 153/89 153/89 161/105 O2 Sat by Pulse 95 93 L 96 Oximetry 09/21/18 09/21/18 09/21/18 20:50 21:00 21:10 Temperature Pulse Rate 79 75 84 Respiratory 16 16 17 Rate Blood Pressure 161/105 161/105 161/109 O2 Sat by Pulse 95 94 L 94 L Oximetry 09/21/18 09/21/18 09/21/18 21:20 21:30 21:40 Temperature Pulse Rate 82 79 Respiratory 18 15 Rate Blood Pressure 161/109 161/109 154/94 O2 Sat by Pulse 93 L 94 L Oximetry Medical Decision Making - Medical Decision Making The patient was seen and examined. All diagnostics were reviewed. An IV is established and she does receive some Decadron, Ofirmev, and Reglan. She is feeling remarkably improved on recheck. It is felt as though she is stable for discharge. Her computed tomography scan of the brain is negative. She likely had a migraine cephalgia. She is counseled regarding her diagnosis in detail and leaves in no distress. - Lab Data Lab Results 09/21/18 Range/Units 19:42 POC Glucose (mg/dL) 137 H (75-99) mg/dL POC Glu Foreign Language Teacher ID Anirudh Garcia Disposition Clinical Impression: Migraine, Neck pain, Nausea, Hypertension Disposition: HOME SELF-CARE Condition: Good Instructions (If sedation given, give patient instructions): Acute Headache (ED ) Is patient prescribed a controlled substance at d/c from ED?: No Referrals: Alex Babin MD [Primary Care Provider] - 1-2 days Time of Disposition: 23:07
--- NOTE | 2018-09-21 21:51 | CT ---
EXAMINATION: CT brain wo con DATE AND TIME: 09/21/2018 9:30 PM CLINICAL INDICATION: PHH; Headache TECHNIQUE: Standard departmental protocol.; 1217.4; COMPARISON: 07/03/2011 FINDINGS: The calvarium is intact. There is no intracranial hemorrhage. There is no intracranial mass or mass effect. No definite new intra-axial or extra-axial attenuation defect. The paranasal sinuses, middle ear cavities, and mastoid sinus air cells are clear. The orbits are unremarkable. IMPRESSION: NO ACUTE PROCESS.
[2018-09-21 23:32] VITALS: BP 155/87; PULSE 87; RESP 18; TEMP 98
== END 2018-09-21 23:31 | disposition home or self-care (01) ==
LOC: EC 19:33
DX: G43.909 Migraine, unspecified, not intractable, without status migrainosus (principal); M54.2 Cervicalgia; I10 Essential (primary) hypertension; K21.9 Gastro-esophageal reflux disease without esophagitis; F41.9 Anxiety disorder, unspecified; F31.9 Bipolar disorder, unspecified; F17.200 Nicotine dependence, unspecified, uncomplicated; Z79.899 Other long term (current) drug therapy; Z86.711 Personal history of pulmonary embolism; Z86.718 Personal history of other venous thrombosis and embolism
CPT/HCPCS: 36415; 93005; 70450; 99284; 96374; 96375 ×3; 96361; J1100; J2765; J0131

== ENCOUNTER 2018-11-06 18:40 | Emergency (ER) | payer OTHER ==
[2018-11-06 19:05] VITALS: BP 111/57; PULSE 103; RESP 18; TEMP 98.7
--- NOTE | 2018-11-06 19:54 | XR ---
PROCEDURE: XR Hip Complete LT - 2V DATE AND TIME: 11/06/2018 7:19 PM CLINICAL INDICATION: PHH; Pain TECHNIQUE: [place] AP and lateral views COMPARISON: None FINDINGS: There is no fracture or malalignment. There is a subtle finding. This, a loss of angulation at the lateral junction of the femoral head and neck, a subtle findings could correspond with a clinical diagnosis of impingement. The soft tissues are unremarkable. IMPRESSION: NO ACUTE RADIOGRAPHIC PROCESS.
--- NOTE | 2018-11-06 20:00 | ED ---
Lower Extremity Injury HPI - General Chief Complaint: Extremity Injury, Lower Stated Complaint: Hip Pain Time Seen by Provider: 11/06/18 19:06 Source: patient Mode of arrival: wheelchair Limitations: no limitations - History of Present Illness Initial Comments: 37-year-old female presenting today for chief complaint of left hip pain x 1 week. She has history of DVT and pulmonary wasn't following intra-abdominal surgery, patient has IVC filter placed. Patient states she has no wheezing diathesis, coagulation disorders. Patient states that for the past week she has had left. Pain increases with range of motion. Patient states she has had chronic bilateral hip pain. She states she's had impingement of the right hip. Patient states that she had locking sensation left hip. She states this feels that she cannot move her leg because is locked up. Patient states she feels there may be same thing that is ocurring with the right hip in the left hip. Patient states that she has had no fever chills general malaise nausea vomiting, redness more or decreased range of motion of the left hip. Patient states that she is able to fully weight-bear. Remaining review of system negative. Patient as a trauma to the hip, shortness of breath, chest pain, back pain, abdominal pain, nausea or vomiting, numbness or tingling, dysuria or hematuria, con stipation or diarrhea, headaches or visual changes, or any other complaints. - Related Data Home Medications Medication Instructions Recorded Confirmed Cyclobenzaprine [Flexeril] 10 mg PO TID 05/18/17 09/21/18 traZODone HCL [Desyrel] 300 mg PO HS 06/29/17 09/21/18 Pregabalin [Lyrica] 75 mg PO HS 04/19/18 09/21/18 hydrOXYzine PAMOATE [Vistaril] 25 mg PO HS 04/19/18 09/21/18 Phentermine HCl [Adipex-P] 37.5 mg PO DAILY 05/25/18 09/21/18 Ranitidine HCl 150 mg PO HS 05/25/18 09/21/18 Verapamil HCl [Calan] 120 mg PO DAILY 05/25/18 09/21/18 Folic Acid 1 mg PO DAILY 05/31/18 09/21/18 SUMAtriptan SUCCINATE [Imitrex] 100 mg PO BID PRN 05/31/18 09/21/18 Lurasidone [Latuda] 80 mg PO HS 08/26/18 09/21/18 Venlafaxine HCl [Effexor XR] 150 mg PO DAILY 08/26/18 09/21/18 Allergies Allergy/AdvReac Type Severity Reaction Status Date / Time No Known Allergies Allergy Verified 11/06/18 19:05 Review of Systems ROS Statement: Those systems with pertinent positive or pertinent negative responses have been documented in the HPI. ROS Other: All systems not noted in ROS Statement are negative. 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, migraine History of Any Multi-Drug Resistant Organisms: None Reported Past Surgical History: Section, Cholecystectomy, Uterine Ablation Additional Past Surgical History / Comment(s): Andreas filter, D&C, c-sect x 2 Past Anesthesia/Blood Transfusion Reactions: No Reported Reaction Past Psychological History: Anxiety, Bipolar, Depression Smoking Status: Current every day smoker Past Alcohol Use History: Occasional Past Drug Use History: None Reported General Exam - General Exam Comments Initial Comments: General: The patient is awake and alert, in no distress, and does not appear acutely ill. Eye: +3mm pupils are equal, round and reactive to light, extra-ocular movements are intact. No nystagmus. There is normal conjunctiva bilaterally. No signs of icterus. Ears, nose, mouth and throat: There are moist mucous membranes and no oral lesions. Neck: The neck is supple, there is no tenderness or JVD. Cardiovascular: There is a regular rate and rhythm. No murmur, rub or gallop is appreciated. Respiratory: Lungs are clear to auscultation, respirations are non-labored, breath sounds are equal. No wheezes, stridor, rales, or rhonchi. Musculoskeletal: Normal inspection of hips bilaterally equal comparison. Noted crepitus with range of motion of left hip. Patient is able to fully weight-bear without difficulty. Normal ROM, of the hips bilaterally equal comparison she does complain tenderness bilaterally. Strength 5/5. Sensation intact of the lower extremities equal bilaterally. DP pulses equal bilaterally 2+. No lower extremity edema. Neurological: A&O x 3. CN II-XII intact, There are no obvious motor or sensory deficits. Coordination appears grossly intact. Speech is normal. Skin: Skin is warm and dry and no rashes or lesions are noted. Psychiatric: Cooperative, appropriate mood & affect, normal judgment. Limitations: no limitations Course Vital Signs 11/06/18 19:03 Temperature 98.7 F Pulse Rate 103 H Respiratory 18 Rate Blood Pressure 111/57 O2 Sat by Pulse 95 Oximetry Medical Decision Making - Medical Decision Making 37-year-old female presenting today for chief complaint of left hip pain. Patient states she was told she had impingement of the right hip. She states she falls or take surgery for this complaint. Patient states she has similar sensation in the left hip. She states she is able to range however this is painful. She states she feels as though it is locking. Patient x-ray significant for impingement syndrome. Patient otherwise intact. At this time feel this is cause of patient's pain. Patient is morbidly obese, did discuss importance of weight loss. Patient verbalizes understanding. Patient states that she will follow-up with Dr. Billings for this complaint. I did discuss case with her primary DrDanelle Pool was agreeable patient plan discharge. He did review imaging studies. Patient discharged stable condition appearing well. Disposition Clinical Impression: Left hip impingement syndrome Disposition: HOME SELF-CARE Condition: Good Instructions (If sedation given, give patient instructions): Hip Pain (ED) Additional Instructions: Please use medication as discussed. Please follow-up with family doctor in the next 2 days, please follow up with your orthopedic surgeon in the next week. Please return to emergency room if the symptoms increase or worsen or for any other concerns. Is patient prescribed a controlled substance at d/c from ED?: No Referrals: Alex Babin MD [Primary Care Provider] - 1-2 days Time of Disposition: 20:00
== END 2018-11-06 20:22 | disposition home or self-care (01) ==
LOC: EC 18:40
DX: M25.852 Other specified joint disorders, left hip (principal); E66.01 Morbid (severe) obesity due to excess calories; Z68.44 Body mass index [BMI] 60.0-69.9, adult; K21.9 Gastro-esophageal reflux disease without esophagitis; F31.9 Bipolar disorder, unspecified; F41.9 Anxiety disorder, unspecified; F17.200 Nicotine dependence, unspecified, uncomplicated; Z79.899 Other long term (current) drug therapy; Z86.711 Personal history of pulmonary embolism; Z86.718 Personal history of other venous thrombosis and embolism
CPT/HCPCS: 73502; 99283

== ENCOUNTER 2018-11-20 18:16 | Emergency (ER) | payer OTHER ==
[2018-11-20] MEDS ORDERED: ACETAMINOPHEN TAB 500 MG TAB PO STA (18:31)
[2018-11-20 18:38] VITALS: BP 129/88; PULSE 95; RESP 18; TEMP 97.6
--- NOTE | 2018-11-20 18:45 | ED ---
General Adult HPI - General Stated complaint: Lt foot pain Time Seen by Provider: 11/20/18 18:20 Source: patient, RN notes reviewed Mode of arrival: EMS Limitations: no limitations - History of Present Illness Initial comments: 37-year-old female Well-known to this emergency Department with a past medical history of DVT and PE following surgery, GERD, arthritis presents to the emergency department for left heel pain 2 days. Patient states it is painful to walk on the left ear. Patient states this is worse in the morning. Patient has not taken any thing for pain. Patient denies any injuries. Patient denies any pain in the ankle and calf or knee. Denies any leg swelling. Patient does admit that she has had plantar fasciitis in the right foot previously.Patient has no other complaints at this time including shortness of breath, chest pain, abdominal pain, nausea or vomiting, headache, or visual changes. - Related Data Home Medications Medication Instructions Recorded Confirmed Cyclobenzaprine [Flexeril] 10 mg PO TID 05/18/17 09/21/18 traZODone HCL [Desyrel] 300 mg PO HS 06/29/17 09/21/18 Pregabalin [Lyrica] 75 mg PO HS 04/19/18 09/21/18 hydrOXYzine PAMOATE [Vistaril] 25 mg PO HS 04/19/18 09/21/18 Phentermine HCl [Adipex-P] 37.5 mg PO DAILY 05/25/18 09/21/18 Ranitidine HCl 150 mg PO HS 05/25/18 09/21/18 Verapamil HCl [Calan] 120 mg PO DAILY 05/25/18 09/21/18 Folic Acid 1 mg PO DAILY 05/31/18 09/21/18 SUMAtriptan SUCCINATE [Imitrex] 100 mg PO BID PRN 05/31/18 09/21/18 Lurasidone [Latuda] 80 mg PO HS 08/26/18 09/21/18 Venlafaxine HCl [Effexor XR] 150 mg PO DAILY 08/26/18 09/21/18 Allergies Allergy/AdvReac Type Severity Reaction Status Date / Time No Known Allergies Allergy Verified 11/20/18 18:35 Review of Systems ROS Statement: Those systems with pertinent positive or pertinent negative responses have been documented in the HPI. ROS Other: All systems not noted in ROS Statement are negative. 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, migraine History of Any Multi-Drug Resistant Organisms: None Reported Past Surgical History: Section, Cholecystectomy, Uterine Ablation Additional Past Surgical History / Comment(s): Andreas filter, D&C, c-sect x 2 Past Anesthesia/Blood Transfusion Reactions: No Reported Reaction Past Psychological History: Anxiety, Bipolar, Depression, PTSD Smoking Status: Current every day smoker Past Alcohol Use History: Occasional Past Drug Use History: None Reported General Exam Limitations: no limitations General appearance: alert, in no apparent distress Head exam: Present: atraumatic, normocephalic, normal inspection Eye exam: Present: normal appearance, PERRL, EOMI. Absent: scleral icterus, conjunctival injection, periorbital swelling ENT exam: Present: normal exam, mucous membranes moist Neck exam: Present: normal inspection. Absent: tenderness, meningismus, lymphadenopathy Respiratory exam: Present: normal lung sounds bilaterally. Absent: respiratory distress, wheezes, rales, rhonchi, stridor Cardiovascular Exam: Present: regular rate, normal rhythm, normal heart sounds. Absent: systolic murmur, diastolic murmur, rubs, gallop, clicks Extremities exam: Present: full ROM (Full range of motion of the left lower extremity including the foot and ankle), tenderness (Full range of motion of the left lower extremity including the foot and ankle tenderness to the plantar aspect of the left heel only when palpated deeply), normal capillary refill (Capillary refill less than 2 seconds, DP pulse 2+ in the left lower extremity). Absent: joint swelling (No edema, erythema, ecchymosis noted in the left lower extremity or left heel), calf tenderness (noPain or swelling in the left calf, negative Homans sign) Neurological exam: Present: alert, oriented X3, CN II-XII intact Psychiatric exam: Present: normal affect, normal mood Course Vital Signs 11/20/18 18:25 Temperature 97.6 F Pulse Rate 95 Respiratory 18 Rate Blood Pressure 129/88 O2 Sat by Pulse 99 Oximetry Medical Decision Making - Medical Decision Making 37-year-old female presents for left heel pain 2 days. Pain is worse when walking and heel. It is painful to apply pressure to. On exam, heel is generally unremarkable although patient does have some tenderness noted to the heel. X-ray shows no acute process. Given tenderness to the heel on the plantar aspects patient likely has plantar fasciitis. Patient given Tylenol for pain. Discussed Motrin and Tylenol for symptom management as well as applying ice to the area and massaging it. Patient will do this and return if she has any worsening symptoms. Disposition Clinical Impression: Heel pain Disposition: HOME SELF-CARE Condition: Good Instructions (If sedation given, give patient instructions): Plantar Fasciitis (ED) Additional Instructions: Take Motrin and Tylenol for pain. Follow-up with primary care and orthopedics in one to 2 days. Return here to the emergency department if you have any worsening symptoms. Is patient prescribed a controlled substance at d/c from ED?: No Referrals: Alex Babin MD [Primary Care Provider] - 1-2 days Chato Roberts DO [Medical Doctor] - 1-2 days Time of Disposition: 19:27
--- NOTE | 2018-11-20 19:22 | XR ---
PROCEDURE: XR foot complete LT - 3V DATE AND TIME: 11/20/2018 7:07 PM CLINICAL INDICATION: Pain. Heel. TECHNIQUE: Department protocol COMPARISON: None FINDINGS: There is no fracture or malalignment. The soft tissues are unremarkable. IMPRESSION: NO ACUTE PROCESS.
== END 2018-11-20 19:50 | disposition home or self-care (01) ==
LOC: EC 18:16
DX: M79.672 Pain in left foot (principal); K21.9 Gastro-esophageal reflux disease without esophagitis; M19.90 Unspecified osteoarthritis, unspecified site; F31.9 Bipolar disorder, unspecified; F43.10 Post-traumatic stress disorder, unspecified; F41.9 Anxiety disorder, unspecified; F17.200 Nicotine dependence, unspecified, uncomplicated; Z86.711 Personal history of pulmonary embolism; Z86.718 Personal history of other venous thrombosis and embolism; Z79.899 Other long term (current) drug therapy
CPT/HCPCS: 99283

== ENCOUNTER 2018-12-16 19:55 | Emergency (ER) | payer OTHER ==
[2018-12-16 20:12] VITALS: RESP 18
[2018-12-16] MEDS ORDERED: SODIUM CHLORIDE 0.9% 1,000 ML IV STA (20:16)
[2018-12-16] MEDS ORDERED: KETOROLAC 30 MG/ML 1 ML VIAL IVP STA (20:29)
[2018-12-16] MEDS ORDERED: ONDANSETRON 4 MG/2 ML VIAL IVP STA (20:29)
[2018-12-16 21:13] LABS: Appearance,Urine Cloudy (Clear); Bacteria,Urine Moderate /hpf; Bilirubin,Urine Negative (Negative); Blood,Urine Negative (Negative); Color,Urine Yellow; Glucose,Urine (UA) Negative (Negative); Ketones,Urine Negative (Negative); Leukocyte Esterase,Urine Negative (Negative); Nitrite,Urine Negative (Negative); Protein,Urine Negative (Negative); RBC,Urine 2 /hpf (0-5); Squamous Epithelial Cell,Urine 2 /hpf (0-4); Urobilinogen,Urine <2.0 mg/dL (<2.0)
[2018-12-16 21:15] LABS: ALT 39 U/L (9-52); AST 28 U/L (14-36); Albumin 4.1 g/dL (3.5-5.0); Alkaline Phosphatase 60 U/L (38-126); Anion Gap 7 mmol/L; Blood Urea Nitrogen 12 mg/dL (7-17); Calcium 9.4 mg/dL (8.4-10.2); Carbon Dioxide 30 mmol/L (22-30); Chloride 101 mmol/L (98-107); Glucose 115 mg/dL (74-99); Lipase 217 U/L (23-300); Sodium 138 mmol/L (137-145); Total Bilirubin 0.3 mg/dL (0.2-1.3); Total Protein 6.9 g/dL (6.3-8.2)
[2018-12-16 21:22] LABS: Basophils # (A) 0.1 k/uL (0-0.2); Basophils % (A) 1 %; Eosinophils # (A) 0.3 k/uL (0-0.7); Eosinophils % (A) 5 %; HCT 41.3 % (34.0-46.0); HGB 13.5 gm/dL (11.4-16.0); Lymphocytes # (A) 1.7 k/uL (1.0-4.8); Lymphocytes % (A) 28 %; MCH 30.5 pg (25.0-35.0); MCHC 32.6 g/dL (31.0-37.0); MCV 93.6 fL (80.0-100.0); Mean Platelet Volume 6.7; Monocytes # (A) 0.3 k/uL (0-1.0); Monocytes % (A) 5 %; Neutrophils # (A) 3.6 k/uL (1.3-7.7); Neutrophils % (A) 59 %; Platelet Count 387 k/uL (150-450); RBC 4.42 m/uL (3.80-5.40); RDW 14.2 % (11.5-15.5); WBC 6.1 k/uL (3.8-10.6)
--- NOTE | 2018-12-16 21:25 | ED ---
Abdominal Pain HPI - General Chief Complaint: Abdominal Pain Stated Complaint: Abd Pain Time Seen by Provider: 12/16/18 20:15 Source: patient, RN notes reviewed Mode of arrival: ambulatory Limitations: no limitations - History of Present Illness Initial Comments: 37-year-old female presents emergency Department chief complaint of abdominal pain. Patient states started to morning. Patient states her bowel movements have been normal for her.. Patient states is not localize denies any fevers or chills no dysuria hematuria denies any known . Patient states that she has pain but nothing makes pain feel better or worse. Denies any sick contacts. Patient offers no other complaints. - Related Data Home Medications Medication Instructions Recorded Confirmed Cyclobenzaprine [Flexeril] 10 mg PO TID 05/18/17 09/21/18 traZODone HCL [Desyrel] 300 mg PO HS 06/29/17 09/21/18 Pregabalin [Lyrica] 75 mg PO HS 04/19/18 09/21/18 hydrOXYzine PAMOATE [Vistaril] 25 mg PO HS 04/19/18 09/21/18 Phentermine HCl [Adipex-P] 37.5 mg PO DAILY 05/25/18 09/21/18 Ranitidine HCl 150 mg PO HS 05/25/18 09/21/18 Verapamil HCl [Calan] 120 mg PO DAILY 05/25/18 09/21/18 Folic Acid 1 mg PO DAILY 05/31/18 09/21/18 SUMAtriptan SUCCINATE [Imitrex] 100 mg PO BID PRN 05/31/18 09/21/18 Lurasidone [Latuda] 80 mg PO HS 08/26/18 09/21/18 Venlafaxine HCl [Effexor XR] 150 mg PO DAILY 08/26/18 09/21/18 Previous Rx's Medication Instructions Recorded Dicyclomine [Bentyl] 20 mg PO TID #30 tablet 12/16/18 Allergies Allergy/AdvReac Type Severity Reaction Status Date / Time No Known Allergies Allergy Verified 12/16/18 20:12 Review of Systems ROS Statement: Those systems with pertinent positive or pertinent negative responses have been documented in the HPI. ROS Other: All systems not noted in ROS Statement are negative. 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, migraine History of Any Multi-Drug Resistant Organisms: None Reported Past Surgical History: Ablation, Section, Cholecystectomy, Uterine Ablation Additional Past Surgical History / Comment(s): Andreas filter, D&C, c-sect x 2 Past Anesthesia/Blood Transfusion Reactions: No Reported Reaction Past Psychological History: Anxiety, Bipolar, Depression, PTSD, Schizoaffective Disorder Smoking Status: Current every day smoker Past Alcohol Use History: Occasional Past Drug Use History: None Reported General Exam Limitations: no limitations General appearance: alert, in no apparent distress Head exam: Present: atraumatic, normocephalic, normal inspection Eye exam: Present: normal appearance, PERRL, EOMI. Absent: scleral icterus, conjunctival injection, periorbital swelling ENT exam: Present: normal exam, mucous membranes moist Neck exam: Present: normal inspection. Absent: tenderness, meningismus, lymphadenopathy Respiratory exam: Present: normal lung sounds bilaterally. Absent: respiratory distress, wheezes, rales, rhonchi, stridor Cardiovascular Exam: Present: regular rate, normal rhythm, normal heart sounds. Absent: systolic murmur, diastolic murmur, rubs, gallop, clicks GI/Abdominal exam: Present: soft, tenderness, normal bowel sounds. Absent: distended, guarding, rebound, rigid Back exam: Absent: CVA tenderness (R), CVA tenderness (L) Skin exam: Present: warm, dry, intact, normal color. Absent: rash Course Vital Signs 12/16/18 20:08 Temperature 98.3 F Pulse Rate 101 H Respiratory 18 Rate Blood Pressure 144/77 O2 Sat by Pulse 99 Oximetry Medical Decision Making - Medical Decision Making 37-year-old female presented from for abdominal pain. Patient had lab work, urinalysis and KUB. This all unremarkable. X-ray shows moderate gas in the bowel. Patient will be discharged with Bentyl return parameters were discussed. - Lab Data Result diagrams: 12/16/18 20:55 12/16/18 20:55 Lab Results 12/16/18 12/16/18 12/16/18 Range/Units 20:55 20:55 20:55 WBC 6.1 (3.8-10.6) k/uL RBC 4.42 (3.80-5.40) m/uL Hgb 13.5 (11.4-16.0) gm/dL Hct 41.3 (34.0-46.0) % MCV 93.6 (80.0-100.0) fL MCH 30.5 (25.0-35.0) pg MCHC 32.6 (31.0-37.0) g/dL RDW 14.2 (11.5-15.5) % Plt Count 387 (150-450) k/uL Neutrophils % 59 % Lymphocytes % 28 % Monocytes % 5 % Eosinophils % 5 % Basophils % 1 % Neutrophils # 3.6 (1.3-7.7) k/uL Lymphocytes # 1.7 (1.0-4.8) k/uL Monocytes # 0.3 (0-1.0) k/uL Eosinophils # 0.3 (0-0.7) k/uL Basophils # 0.1 (0-0.2) k/uL Sodium 138 (137-145) mmol/L Potassium 4.0 (3.5-5.1) mmol/L Chloride 101 (98-107) mmol/L Carbon Dioxide 30 (22-30) mmol/L Anion Gap 7 mmol/L BUN 12 (7-17) mg/dL Creatinine 0.76 (0.52-1.04) mg/dL Est GFR (CKD-EPI)AfAm >90 (>60 ml/min/1.73 sqM) Est GFR (CKD-EPI)NonAf >90 (>60 ml/min/1.73 sqM) Glucose 115 H (74-99) mg/dL Calcium 9.4 (8.4-10.2) mg/dL Total Bilirubin 0.3 (0.2-1.3) mg/dL AST 28 (14-36) U/L ALT 39 (9-52) U/L Alkaline Phosphatase 60 (38-126) U/L Total Protein 6.9 (6.3-8.2) g/dL Albumin 4.1 (3.5-5.0) g/dL Lipase 217 (23-300) U/L Urine Color Urine Appearance (Clear) Urine pH (5.0-8.0) Ur Specific Industry (1.001-1.035) Urine Protein (Negative) Urine Glucose (UA) (Negative) Urine Ketones (Negative) Urine Blood (Negative) Urine Nitrite (Negative) Urine Bilirubin (Negative) Urine Urobilinogen (<2.0) mg/dL Ur Leukocyte Esterase (Negative) Urine RBC (0-5) /hpf Urine WBC (0-5) /hpf Ur Squamous Epith Cells (0-4) /hpf Urine Bacteria (None) /hpf Urine HCG, Qual Not Detected (Not Detectd) 12/16/18 Range/Units 20:55 WBC (3.8-10.6) k/uL RBC (3.80-5.40) m/uL Hgb (11.4-16.0) gm/dL Hct (34.0-46.0) % MCV (80.0-100.0) fL MCH (25.0-35.0) pg MCHC (31.0-37.0) g/dL RDW (11.5-15.5) % Plt Count (150-450) k/uL Neutrophils % % Lymphocytes % % Monocytes % % Eosinophils % % Basophils % % Neutrophils # (1.3-7.7) k/uL Lymphocytes # (1.0-4.8) k/uL Monocytes # (0-1.0) k/uL Eosinophils # (0-0.7) k/uL Basophils # (0-0.2) k/uL Sodium (137-145) mmol/L Potassium (3.5-5.1) mmol/L Chloride (98-107) mmol/L Carbon Dioxide (22-30) mmol/L Anion Gap mmol/L BUN (7-17) mg/dL Creatinine (0.52-1.04) mg/dL Est GFR (CKD-EPI)AfAm (>60 ml/min/1.73 sqM) Est GFR (CKD-EPI)NonAf (>60 ml/min/1.73 sqM) Glucose (74-99) mg/dL Calcium (8.4-10.2) mg/dL Total Bilirubin (0.2-1.3) mg/dL AST (14-36) U/L ALT (9-52) U/L Alkaline Phosphatase (38-126) U/L Total Protein (6.3-8.2) g/dL Albumin (3.5-5.0) g/dL Lipase (23-300) U/L Urine Color Yellow Urine Appearance Cloudy H (Clear) Urine pH 7.0 (5.0-8.0) Ur Specific Industry 1.010 (1.001-1.035) Urine Protein Negative (Negative) Urine Glucose (UA) Negative (Negative) Urine Ketones Negative (Negative) Urine Blood Negative (Negative) Urine Nitrite Negative (Negative) Urine Bilirubin Negative (Negative) Urine Urobilinogen <2.0 (<2.0) mg/dL Ur Leukocyte Esterase Negative (Negative) Urine RBC 2 (0-5) /hpf Urine WBC 1 (0-5) /hpf Ur Squamous Epith Cells 2 (0-4) /hpf Urine Bacteria Moderate H (None) /hpf Urine HCG, Qual (Not Detectd) Disposition Clinical Impression: Abdominal pain Disposition: HOME SELF-CARE Condition: Stable Instructions (If sedation given, give patient instructions): Abdominal Pain (ED) Additional Instructions: Please return to the Emergency Department if symptoms worsen or any other concerns. Prescriptions: Dicyclomine [Bentyl] 20 mg PO TID #30 tablet Is patient prescribed a controlled substance at d/c from ED?: No Referrals: Alex Babin MD [Primary Care Provider] - 1-2 days Time of Disposition: 22:02
--- NOTE | 2018-12-16 21:38 | XR ---
EXAMINATION TYPE: XR KUB, 3 views DATE OF EXAM: 12/16/2018 COMPARISON: 06/03/2017 HISTORY: Pain TECHNIQUE: 3 upright views FINDINGS: The visualized lung bases and pleural spaces are negative. The bowel gas pattern is normal. The overlying soft tissues are prominent, limiting visualization. Andreas filter noted. No definite acute skeletal or soft tissue findings. IMPRESSION: Negative examination.
[2018-12-16 22:31] VITALS: BP 131/75; PULSE 91; TEMP 97.9
== END 2018-12-16 22:29 | disposition home or self-care (01) ==
LOC: EC 19:55
DX: R10.9 Unspecified abdominal pain (principal); K21.9 Gastro-esophageal reflux disease without esophagitis; F31.9 Bipolar disorder, unspecified; F41.9 Anxiety disorder, unspecified; F17.200 Nicotine dependence, unspecified, uncomplicated; Z79.899 Other long term (current) drug therapy; Z90.49 Acquired absence of other specified parts of digestive tract
CPT/HCPCS: 36415; 80053; 83690; 85025; 81001; 81025; 74018; 99284; 96374; 96375; 96361; J2405; J1885

== ENCOUNTER → 2019-01-07 | Outpatient (CLI) | payer OTHER ==
[2019-01-07 10:40] VITALS: BP 139/80; PULSE 85; TEMP 97.9; BMI 61.2
--- NOTE | 2019-01-07 10:53 | P.HPBAR ---
Bariatric H&P - History & Physicial H&P Date: 01/07/19 History & Physicial: Visit/CC: inital clinic visit Patient initial contact: Initial weight: Initial weight in pounds: Height: 5 ft 4.5 in Initial BMI: Last weight: Current weight: 164.2 kg Current weight in pounds: 362.00 Current BMI: 61.2 [place] body weight (based on NIH guidelines): 55.565 kg Excess body weight loss: The patient is a 38 year-old F who presents for Bariatric Assessment. HPI: She is looking into the sleeve. She has tried Adipex in the past. She has poor dentition and has trouble with eating. She is seeing a psychiatrist. She ambulates with a cane. Highest weight of 366 pounds. She has GERD. She takes Zantac. No stomach or esophageal cancer. Her mother had trouble with her weight prior to passing. Her gallbladder removed. She has history of blood clots in the her leg and lungs. She has a green field filter. No CPAP machine. She has chronic pain including hips, knees, and foot. She is wearing orthotics. No diabetes. No diarrhea or constipation. No lupus or MS in the family. She has trouble with money. She sees Dr. Marte for her stomach problems. She has severe GERD. ABDOMEN: Unremarkable MS: 1+ edema ASSESSMENT: 1. Tobacco abuse 2. Morbid obesity 3. PLAN: 1. Bariatric labs 2. EGD 3. EKG 4. Strict medically supervised weight loss. 5. February 07 quit date for smoking. 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 Hiatal hernia: 2. H. 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
[2019-01-07 11:52] LABS: HCT 40.6 % (34.0-46.0); HGB 13.2 gm/dL (11.4-16.0); MCH 30.7 pg (25.0-35.0); MCHC 32.6 g/dL (31.0-37.0); Mean Platelet Volume 6.8; Platelet Count 311 k/uL (150-450); RBC 4.32 m/uL (3.80-5.40); RDW 14.7 % (11.5-15.5); WBC 9.6 k/uL (3.8-10.6)
[2019-01-07 12:05] LABS: INR 0.9 (<1.2); Partial Thromboplastin Time 24.8 sec (22.0-30.0); Prothrombin Time 10.1 sec (9.0-12.0)
[2019-01-07 18:23] LABS: Hemoglobin A1C 5.5 % (4.0-6.0)
[2019-01-07 18:44] LABS: Iron Saturation 19.31 (12.00-45.00)
[2019-01-07 18:48] LABS: Albumin 4.5 g/dL (3.80-4.90); Albumin/Globulin Ratio 2.05 (1.60-3.17); Anion Gap 5.6 mmol/L (4.00-12.00); Calcium 9.3 mg/dL (8.7-10.3); Carbon Dioxide 26.4 mmol/L (21.6-31.8); Globulin 2.2 g/dL (1.6-3.3); Phosphorus 3.6 mg/dL (2.4-5.1); Potassium 4.3 mmol/L (3.5-5.5); Total Bilirubin 0.3 mg/dL (0.3-1.2); Total Protein 6.7 g/dL (6.2-8.2)
[2019-01-07 18:52] LABS: Vitamin D 25 Hydroxy 26.3 ng/mL (30.0-100.0)
[2019-01-07 19:05] LABS: Folate, Serum >24.0 ng/mL
[2019-01-08 12:14] LABS: Zinc, Serum 62 ug/dL (60-130)
== END | disposition home or self-care (01) ==
LOC: BARWHC3 09:24
PROVIDERS: ATTEND Surgery Plastic and Reconstructive Surgery
DX: E66.01 Morbid (severe) obesity due to excess calories (principal); E21.1 Secondary hyperparathyroidism, not elsewhere classified; E89.1 Postprocedural hypoinsulinemia; D50.9 Iron deficiency anemia, unspecified; K90.89 Other intestinal malabsorption; E55.9 Vitamin D deficiency, unspecified; K76.9 Liver disease, unspecified; N19 Unspecified kidney failure; K50.90 Crohn's disease, unspecified, without complications; F17.200 Nicotine dependence, unspecified, uncomplicated; Z68.44 Body mass index [BMI] 60.0-69.9, adult; Z90.49 Acquired absence of other specified parts of digestive tract
CPT/HCPCS: 84255; 84134; 84425; 80061; 80053; 82607; 82728; 82525; 82746; 83540; 83550; 83735; 84100; 84443; 84590; 84630; 85027; 85610; 85730; 82306; 83970; 83036; 93005; 36415; G0463; 99211

== ENCOUNTER 2019-02-19 21:36 | Emergency (ER) | payer OTHER ==
[2019-02-19 21:44] VITALS: TEMP 99.5
[2019-02-19] MEDS ORDERED: KETOROLAC 30 MG/ML 1 ML VIAL IVP STA (22:11)
[2019-02-19] MEDS ORDERED: SODIUM CHLORIDE 0.9% 1,000 ML IV ONE (22:11)
[2019-02-19] MEDS ORDERED: diphenhydrAMINE 50 MG/ML 1 ML VIAL IVP STA (22:11)
[2019-02-19] MEDS ORDERED: METOCLOPRAMIDE 5 MG/ML 2 ML VIAL IVP STA (22:11)
--- NOTE | 2019-02-19 22:32 | ED ---
Headache HPI - General Chief Complaint: Headache Stated Complaint: headache Time Seen by Provider: 02/19/19 21:49 Mode of arrival: EMS - History of Present Illness Initial Comments: 38-year-old female patient presents to the emergency department today for evaluation of migraine headache. Patient states his headache started this morning. States that she did take her usual medications including Imitrex, ibuprofen, and Zofran without relief of symptoms. Patient states that the headache encompasses her entire head and radiates down into her neck. States that she is having light and sound sensitivity. States she has been nauseated and has been having dry heaves but no vomiting. States her symptoms are consistent with her usual migraine pattern. She denies any new symptoms with this headache. Denies any numbness, tingle and, weakness to her extremities. Denies any fever or chills. Denies any head injury. Patient denies any recent rash, shortness breath, chest pain, abdominal pain, diarrhea, constipation, back pain, hematuria, dysuria, urinary urgency, urinary frequency, or any other complaints. - Related Data Home Medications Medication Instructions Recorded Confirmed Cyclobenzaprine [Flexeril] 10 mg PO TID 05/18/17 01/07/19 traZODone HCL [Desyrel] 200 mg PO HS 06/29/17 01/07/19 hydrOXYzine PAMOATE [Vistaril] 50 mg PO HS 04/19/18 01/07/19 Phentermine HCl [Adipex-P] 37.5 mg PO DAILY 05/25/18 01/07/19 Ranitidine HCl 150 mg PO HS 05/25/18 01/07/19 Verapamil HCl [Calan] 120 mg PO DAILY 05/25/18 01/07/19 Folic Acid 1 mg PO DAILY 05/31/18 01/07/19 SUMAtriptan SUCCINATE [Imitrex] 100 mg PO BID PRN 05/31/18 01/07/19 Benztropine Mesylate [Cogentin] 1 mg PO DAILY 01/07/19 01/07/19 Haloperidol [Haldol] 1 mg PO BID 01/07/19 01/07/19 Ibuprofen [Motrin] 800 mg PO TID 01/07/19 01/07/19 LORazepam [Ativan] 1 mg PO DAILY PRN 01/07/19 01/07/19 Lacosamide [Vimpat] 50 mg PO BID 01/07/19 01/07/19 Ondansetron HCl [Zofran] 8 mg PO BID PRN 01/07/19 01/07/19 buPROPion HCL [Wellbutrin XL] 300 mg PO DAILY 01/07/19 01/07/19 Allergies Allergy/AdvReac Type Severity Reaction Status Date / Time No Known Allergies Allergy Verified 02/19/19 21:44 Review of Systems ROS Statement: Those systems with pertinent positive or pertinent negative responses have been documented in the HPI. ROS Other: All systems not noted in ROS Statement are negative. 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, migraine History of Any Multi-Drug Resistant Organisms: None Reported Past Surgical History: Ablation, Section, Cholecystectomy, Uterine Ablation Additional Past Surgical History / Comment(s): Jennings filter, D&C, c-sect x 2 Past Anesthesia/Blood Transfusion Reactions: No Reported Reaction Past Psychological History: Anxiety, Bipolar, Depression, PTSD, Schizoaffective Disorder Smoking Status: Current every day smoker Past Alcohol Use History: None Reported Past Drug Use History: Marijuana General Exam General appearance: alert, in no apparent distress, other (Physical well- developed, well-nourished adult female patient in no acute distress. Vital signs upon presentation are temperature 99.5F, pulse 95, respirations 18, blood pressure 123/80, pulse ox 96% on room air.) Eye exam: Present: normal appearance, PERRL, EOMI. Absent: scleral icterus, conjunctival injection, periorbital swelling ENT exam: Present: normal exam, normal oropharynx, mucous membranes moist Respiratory exam: Present: normal lung sounds bilaterally. Absent: respiratory distress, wheezes, rales, rhonchi, stridor Cardiovascular Exam: Present: regular rate, normal rhythm, normal heart sounds. Absent: systolic murmur, diastolic murmur, rubs, gallop, clicks GI/Abdominal exam: Present: soft, normal bowel sounds. Absent: distended, tenderness, guarding, rebound, rigid Neurological exam: Present: alert, oriented X3, CN II-XII intact, other (Strength in all 4 extremities is 5/5.) Psychiatric exam: Present: normal affect, normal mood Skin exam: Present: warm, dry, intact, normal color. Absent: rash Course Vital Signs 02/19/19 02/19/19 02/19/19 21:41 23:11 23:48 Temperature 99.5 F Pulse Rate 95 80 83 Respiratory 18 18 16 Rate Blood Pressure 123/80 144/79 144/79 O2 Sat by Pulse 96 97 97 Oximetry Medical Decision Making - Medical Decision Making 38-year-old female patient presented to the emergency department today for evaluation of migraine headache. Patient does have history of migraines states that her headache symptoms are consistent with her usual migraine pattern. She is neurologically intact with no focal deficits. IV fluids and IV medications were initiated. Upon reevaluation patient does report complete resolution of symptoms and she gets a comfortable being discharged home. She does have an appointment coming up with her neurologist, she is urged to keep this gulshan ointment. She is instructed to follow-up with her primary care physician for recheck in 1-2 days. Return parameters were discussed in detail. She verbalizes understanding and agrees with this plan. Disposition Clinical Impression: Migraine headache Disposition: ADMITTED IP TO THIS [facility] Condition: Serious Instructions (If sedation given, give patient instructions): Migraine Headache (ED) Additional Instructions: Increase fluids. Follow-up with your primary care physician for recheck in 1-2 days. Return to the emergency department immediately for any new, worsening, or concerning symptoms. Is patient prescribed a controlled substance at d/c from ED?: No [facility] [[facility] - 1-2 days Time of Disposition: 23:26
[2019-02-19 23:12] VITALS: BP 144/79
[2019-02-19 23:49] VITALS: PULSE 83; RESP 16
== END 2019-02-19 23:48 | disposition other institution (70) ==
LOC: EC 21:36
DX: G43.909 Migraine, unspecified, not intractable, without status migrainosus (principal); K21.9 Gastro-esophageal reflux disease without esophagitis; M19.90 Unspecified osteoarthritis, unspecified site; Z86.711 Personal history of pulmonary embolism; Z86.718 Personal history of other venous thrombosis and embolism; F25.9 Schizoaffective disorder, unspecified; F31.9 Bipolar disorder, unspecified; F43.10 Post-traumatic stress disorder, unspecified; F17.200 Nicotine dependence, unspecified, uncomplicated; Z79.899 Other long term (current) drug therapy; Z79.1 Long term (current) use of non-steroidal anti-inflammatories (NSAID)
CPT/HCPCS: 99283; 96374; 96375 ×2; 96361; J1200; J2765; J1885

== ENCOUNTER 2019-02-20 20:34 | Inpatient (IN) | payer OTHER ==
[2019-02-20] MEDS ORDERED: SODIUM CHLORIDE 0.9% 500 ML 500 ML IV STA (21:06)
--- NOTE | 2019-02-20 21:31 | ED ---
Chest Pain HPI - General Chief Complaint: Chest Pain Stated Complaint: Chest Pressure Time Seen by Provider: 02/20/19 20:43 Source: patient, family, EMS Mode of arrival: EMS - History of Present Illness Initial Comments: 38-year-old female patient presents to the emergency department today for evaluation of chest pressure. Patient states a couple hours ago she was getting an MRI of the left hip without contrast performed when she felt discomfort to her chest. Patient states shortly after she developed an intense pressure type sensation the chest. States that she feels like a python is squeezing her chest. She denies any nausea, vomiting, sweats, fever, or chills. Denies any cough. Denies any wheezing. Patient denies any recent rash, abdominal pain, diarrhea, constipation, back pain, numbness, tingling, dizziness, weakness, hematuria, dysuria, urinary urgency, urinary frequency, headache, visual changes, or any other complaints. - Related Data Home Medications Medication Instructions Recorded Confirmed Cyclobenzaprine [Flexeril] 10 mg PO TID 05/18/17 01/07/19 traZODone HCL [Desyrel] 200 mg PO HS 06/29/17 01/07/19 hydrOXYzine PAMOATE [Vistaril] 50 mg PO HS 04/19/18 01/07/19 Phentermine HCl [Adipex-P] 37.5 mg PO DAILY 05/25/18 01/07/19 Ranitidine HCl 150 mg PO HS 05/25/18 01/07/19 Verapamil HCl [Calan] 120 mg PO DAILY 05/25/18 01/07/19 Folic Acid 1 mg PO DAILY 05/31/18 01/07/19 SUMAtriptan SUCCINATE [Imitrex] 100 mg PO BID PRN 05/31/18 01/07/19 Benztropine Mesylate [Cogentin] 1 mg PO DAILY 01/07/19 01/07/19 Haloperidol [Haldol] 1 mg PO BID 01/07/19 01/07/19 Ibuprofen [Motrin] 800 mg PO TID 01/07/19 01/07/19 LORazepam [Ativan] 1 mg PO DAILY PRN 01/07/19 01/07/19 Lacosamide [Vimpat] 50 mg PO BID 01/07/19 01/07/19 Ondansetron HCl [Zofran] 8 mg PO BID PRN 01/07/19 01/07/19 buPROPion HCL [Wellbutrin XL] 300 mg PO DAILY 01/07/19 01/07/19 Allergies Allergy/AdvReac Type Severity Reaction Status Date / Time No Known Allergies Allergy Verified 02/19/19 21:44 Review of Systems ROS Statement: Those systems with pertinent positive or pertinent negative responses have been documented in the HPI. ROS Other: All systems not noted in ROS Statement are negative. EKG Findings - EKG Comments: EKG Findings:: EKG obtained at 2051 shows normal sinus rhythm with a ventricular rate of 75, OK interval 154, QRS duration 86, QT 400, QTC 446. No evidence of ST elevation or depression. 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, migraine History of Any Multi-Drug Resistant Organisms: None Reported Past Surgical History: Ablation, Section, Cholecystectomy, Uterine Ablation Additional Past Surgical History / Comment(s): [place] filter, D&C, c-sect x 2 Past Anesthesia/Blood Transfusion Reactions: No Reported Reaction Past Psychological History: Anxiety, Bipolar, Depression, PTSD, Schizoaffective Disorder Smoking Status: Current every day smoker Past Alcohol Use History: None Reported Past Drug Use History: Marijuana General Exam General appearance: alert, in no apparent distress, other (This is a well- developed, well-nourished adult female patient in no acute distress. Vital signs upon presentation are temperature 99.2F, pulse 79, respirations 17, blood pressure 152/104, pulse ox 95% on room air.) Eye exam: Present: normal appearance, PERRL, EOMI. Absent: scleral icterus, conjunctival injection, periorbital swelling ENT exam: Present: normal exam, normal oropharynx, mucous membranes moist Respiratory exam: Present: normal lung sounds bilaterally. Absent: respiratory distress, wheezes, rales, rhonchi, stridor Cardiovascular Exam: Present: regular rate, normal rhythm, normal heart sounds. Absent: systolic murmur, diastolic murmur, rubs, gallop, clicks GI/Abdominal exam: Present: soft, tenderness (Upper abdominal tenderness), normal bowel sounds. Absent: distended, guarding, rebound, rigid Neurological exam: Present: alert, oriented X3, CN II-XII intact Psychiatric exam: Present: normal affect, normal mood Skin exam: Present: warm, dry, intact, normal color. Absent: rash Course Vital Signs 02/20/19 02/20/19 02/20/19 20:37 20:38 21:50 Temperature 99.2 F Pulse Rate 79 78 Respiratory 17 16 Rate Blood Pressure 152/104 135/94 O2 Sat by Pulse 95 93 L 93 L Oximetry 02/20/19 02/20/19 02/20/19 22:10 22:30 22:40 Temperature Pulse Rate 73 75 Respiratory 18 19 Rate Blood Pressure 150/101 140/93 141/91 O2 Sat by Pulse 95 94 L Oximetry 02/20/19 22:50 Temperature Pulse Rate 74 Respiratory 13 Rate Blood Pressure 155/96 O2 Sat by Pulse 94 L Oximetry Chest Pain MDM - MDM RADIOLOGY:Two-view x-ray of the chest is obtained. Report is reviewed in its entirety. Impression by Dr. Pires shows new minimal subsegmental atelectasis left lower lobe compared to old exam. Normal heart. MDM: 38-year-old female patient presents to the emergency department today for evaluation of chest pressure. Patient reported shortness of breath with this. Physical examination is unremarkable. Lungs are clear to auscultation with good air movement. She has some mild upper abdominal tenderness. She did have cholecystectomy. Labs reviewed and did reveal mildly elevated AST, ALT, mildly elevated lipase. Upon reevaluation patient reports continued chest pressure and shortness of breath. Oxygen saturations are 95-96% on room air. EKG showed normal sinus rhythm. We will admit to the hospital for further evaluation and cardiology consultation. Disposition Clinical Impression: Chest pain Disposition: ADMITTED IP TO THIS [facility] Condition: Serious [facility]errals: [facility] [Primary Care Provider] - 1-2 days Decision to Admit Reason: Admit from EC Decision Date: 02/20/19 Decision Time: 23:17
[2019-02-20 21:37] LABS: Basophils # (A) 0.1 k/uL (0-0.2); Basophils % (A) 1 %; Eosinophils # (A) 0.6 k/uL (0-0.7); Eosinophils % (A) 9 %; HCT 42.2 % (34.0-46.0); HGB 13.7 gm/dL (11.4-16.0); Lymphocytes # (A) 1.6 k/uL (1.0-4.8); Lymphocytes % (A) 24 %; MCH 29.6 pg (25.0-35.0); MCHC 32.6 g/dL (31.0-37.0); MCV 90.8 fL (80.0-100.0); Mean Platelet Volume 6.5; Monocytes # (A) 0.4 k/uL (0-1.0); Monocytes % (A) 6 %; Neutrophils # (A) 3.9 k/uL (1.3-7.7); Neutrophils % (A) 58 %; Platelet Count 280 k/uL (150-450); RBC 4.64 m/uL (3.80-5.40); RDW 13.7 % (11.5-15.5); WBC 6.7 k/uL (3.8-10.6)
--- NOTE | 2019-02-20 21:39 | XR ---
EXAMINATION TYPE: XR chest 2V DATE OF EXAM: 02/20/2019 COMPARISON: 08/27/2018 HISTORY: Chest pain TECHNIQUE: Frontal and lateral views of the chest are obtained. FINDINGS: Heart and mediastinum are normal. There is subsegmental atelectasis at the left lung base. The other lung zepeda are clear. Bony thorax is intact. IMPRESSION: There is new minimal subsegmental atelectasis left lower lobe compared to old exam. Norm al heart.
[2019-02-20 21:45] LABS: ALT 66 U/L (9-52); AST 46 U/L (14-36); African American GFR (CKD) >90 (>60 ml/min/1.73 sqM); Albumin 4.4 g/dL (3.5-5.0); Alkaline Phosphatase 54 U/L (38-126); Anion Gap 11 mmol/L; Blood Urea Nitrogen 9 mg/dL (7-17); Calcium 9.3 mg/dL (8.4-10.2); Carbon Dioxide 25 mmol/L (22-30); Chloride 104 mmol/L (98-107); Glucose 109 mg/dL (74-99); Lipase 408 U/L (23-300); Magnesium 1.9 mg/dL (1.6-2.3); Sodium 140 mmol/L (137-145); Total Bilirubin 0.4 mg/dL (0.2-1.3); Total Protein 7.3 g/dL (6.3-8.2)
[2019-02-20 21:46] LABS: Potassium 4.9 mmol/L (3.5-5.1)
[2019-02-20 21:47] LABS: INR 0.9 (<1.2); Partial Thromboplastin Time 22.6 sec (22.0-30.0); Prothrombin Time 9.9 sec (9.0-12.0)
[2019-02-20] MEDS ORDERED: NITROGLYCERIN SL TABS 0.4 MG TAB SUBLINGUAL PRN (23:14)
[2019-02-21] MEDS ORDERED: ONDANSETRON 4 MG TAB PO PRN (00:36)
[2019-02-21] MEDS ORDERED: LORazepam 0.5 MG TAB PO PRN (00:36)
[2019-02-21] MEDS ORDERED: BENZTROPINE MESYLATE 1 MG TAB PO PRN (00:36)
[2019-02-21] MEDS ORDERED: HYDROcodone/APAP 5-325MG 1 EACH TAB PO PRN (00:40)
[2019-02-21] MEDS ORDERED: buPROPion XL 150 MG TAB.ER.24H PO SCH (00:45)
[2019-02-21] MEDS ORDERED: HALOPERIDOL ORAL SOLN 10 MG/5 ML CUP PO SCH ×2 (00:45→21:00)
--- NOTE | 2019-02-21 00:51 | P.HPIM ---
History of Present Illness H&P Date: 02/20/19 Chief Complaint: chest pain 38-year-old female with history of venous thromboembolic some, obesity, depression, anxiety, degenerative joint disease In came into the ER after experiencing chest pain. pain started while having MRI of the left hip done she felt squeezing-like poking pain over her chest 10 out of 10 in severity and nonradiating , that resolved. then while at home resting, suddenly exprienced squeezing chest pain central radiating to neck and back, 8/10 in severity , worse with deep breathing and movement , no relieving factor denies any associated vomiting or diaphoresis fevers or chills denies any coughing shortness of breath or wheezing patient experienced similar pain in the past and she had a stress test done April 2018 which was negative. Currently EKG showing normal sinus rhythm cardiac enzymes are negative labs uunremarkable. patient admitted for cardiac chest pain rule out acute coronary syndrome and observation. Currently she denies any abdominal pain nausea vomiting or changes in her bowel or urinary habits denies any GI bleeding. Review of Systems Pertinent positives as noted in HPI. 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, migraine History of Any Multi-Drug Resistant Organisms: None Reported Past Surgical History: Ablation, Section, Cholecystectomy, Uterine Ablation Additional Past Surgical History / Comment(s): [place] filter, D&C, c-sect x 2 Past Anesthesia/Blood Transfusion Reactions: No Reported Reaction Past Psychological History: Anxiety, Bipolar, Depression, PTSD, Schizoaffective Disorder Smoking Status: Current every day smoker Past Alcohol Use History: None Reported Past Drug Use History: Marijuana - Past Family History Mother Family Medical History: Pulmonary Embolus Father Family Medical History: No Reported History Brother(s) Family Medical History: No Reported History Son(s) Additional Family Medical History / Comment(s): autistic Daughter(s) Additional Family Medical History / Comment(s): adhd/odd Medications and Allergies Home Medications Medication Instructions Recorded Confirmed Type Cyclobenzaprine [Flexeril] 10 mg PO TID 05/18/17 02/21/19 History Ranitidine HCl 150 mg PO HS 05/25/18 02/21/19 History Folic Acid 1 mg PO DAILY 05/31/18 02/21/19 History SUMAtriptan SUCCINATE [Imitrex] 100 mg PO BID PRN 05/31/18 02/21/19 History Benztropine Mesylate [Cogentin] 1 mg PO DAILY PRN 01/07/19 02/21/19 History Haloperidol [Haldol] 1 mg PO HS 01/07/19 02/21/19 History Ibuprofen [Motrin] 800 mg PO TID 01/07/19 02/21/19 History Lacosamide [Vimpat] 50 mg PO BID 01/07/19 02/21/19 History Ondansetron HCl [Zofran] 8 mg PO BID PRN 01/07/19 02/21/19 History LORazepam [Ativan] 2 tab PO Q8H PRN 02/20/19 02/21/19 History Oxybutynin Chloride [Ditropan] 5 mg PO BID 02/20/19 02/21/19 History Verapamil HCl [Verapamil ER] 180 mg PO DAILY 02/20/19 02/21/19 History buPROPion XL [Wellbutrin XL] 150 mg PO BID 02/20/19 02/21/19 History hydrOXYzine PAMOATE [Vistaril] 25 mg PO HS 02/20/19 02/21/19 History metFORMIN HCL [Glucophage] 850 mg PO BID 02/20/19 02/21/19 History traZODone HCL [Desyrel] 100 mg PO HS 02/20/19 02/21/19 History Allergies Allergy/AdvReac Type Severity Reaction Status Date / Time No Known Allergies Allergy Verified 02/20/19 23:51 Physical Exam Vitals: Vital Signs Temp Pulse Resp BP Pulse Ox 02/20/19 22:50 74 13 155/96 94 L 02/20/19 22:40 141/91 02/20/19 22:30 75 19 140/93 94 L 02/20/19 22:10 73 18 150/101 95 02/20/19 21:50 78 16 135/94 93 L 02/20/19 20:38 93 L 02/20/19 20:37 99.2 F 79 17 152/104 95 Intake and Output 02/20/19 02/20/19 02/20/19 06:59 14:59 22:59 Other: Weight 150.139 kg Constitutional: No acute distress, conversant, pleasant, morbidly obese Eyes: Anicteric sclerae, moist conjunctiva, no lid-lag Pupils equal round reactive to light ENMT: NC/AT Oropharynx clear, no erythema, exudates Neck: Supple, FROM, no masses, or JVD No carotid bruits No thyromegaly Lungs: Clear to auscultation Clear to percussion Normal respiratory effort, no accessory muscle use Cardiovascular: Heart regular in rate and rhythm, No murmurs, gallops, or rubs No peripheral edema Abdominal: Soft Nontender, no guarding, rebound or rigidity Abdomen moving with respiration Normoactive bowel sounds No hepatomegaly, No splenomegaly No palpable mass No abdominal wall hernia noted Skin: Normal temperature, tone, texture, turgor No induration No subcutaneous nodules No rash, lesions No ulcers Extremities: No digital cyanosis No clubbing Pedal pulses intact and symmetrical Radial pulses intact and symmetrical No calf tenderness Psychiatric: Alert and oriented to person, place and time Appropriate affect fair judgment Neuro Muscles Strength 5/5 in all 4 extremities Sensation to light touch grossly present throughout Cranial nerves II-XII grossly intact No focal sensory deficits Lymphatics: no palpable cervical or supraclavicular , or inguinal lymph nodes Results CBC & Chem 7: 02/20/19 21:11 02/20/19 21:11 Labs: Abnormal Lab Results - Last 24 Hours (Table) 02/20/19 Range/Units 21:11 Glucose 109 H (74-99) mg/dL AST 46 H (14-36) U/L ALT 66 H (9-52) U/L Lipase 408 H (23-300) U/L Assessment and Plan Assessment: 38-year-old female with history of depression and anxiety admitted under observation with anticipated length of stay less than 48 hours for chest pain rule out acute coronary syndrome, patient had similar events in the past and in april 2018 she had a negative stress test , Plan: chest pain , atypical, rule out ACS observation monitoring v/s trending cardiac enzymes cardiac monitoring cardiology consult negative stress test april 2018 chronic conditions anxiety and depression morbid obesity DJD resume home meds DVT PPX heparin sc tid Preformed a thorough record review from recent hospitalization, April 2018 patient had negative stress test Surrogate decision-maker: CODE STATUS: Full code Discussed with: Patient, ER Anticipated discharge: 48-[address]: home A total of 60 minutes was spent on the care of this complex patient more than 50% of the time was spent in counseling and care coordination.
[2019-02-21] MEDS: hydrOXYzine PAMOATE 25 MG CAP PO SCH ×2 (01:17→21:04)
[2019-02-21] MEDS: OXYBUTYNIN CHLORIDE 5 MG TAB PO SCH ×3 (01:17→21:04)
[2019-02-21] MEDS: traZODone HCL 100 MG TAB PO SCH ×2 (01:18→21:03)
[2019-02-21] MEDS: CYCLOBENZAPRINE 10 MG TAB PO SCH ×4 (01:18→21:04)
[2019-02-21] MEDS: LACOSAMIDE 50 MG TABLET PO SCH ×3 (01:18→21:04)
[2019-02-21] MEDS: LORazepam 0.5 MG TAB PO PRN ×2 (01:23→22:52)
[2019-02-21] MEDS ORDERED: HEPARIN SODIUM,PORCINE 5,000 UNIT/ML 1 ML VIAL SQ SCH (08:00)
[2019-02-21] MEDS: FOLIC ACID 1 MG TAB PO SCH (08:01)
[2019-02-21] MEDS: VERAPAMIL SR 180 MG TABLET.ER PO SCH (08:01)
[2019-02-21 08:17] LABS: Basophils # (A) 0.1 k/uL (0-0.2); Basophils % (A) 1 %; Eosinophils # (A) 0.5 k/uL (0-0.7); Eosinophils % (A) 11 %; HCT 40.2 % (34.0-46.0); HGB 13.1 gm/dL (11.4-16.0); Lymphocytes # (A) 1.8 k/uL (1.0-4.8); Lymphocytes % (A) 37 %; MCH 30.1 pg (25.0-35.0); MCHC 32.6 g/dL (31.0-37.0); MCV 92.3 fL (80.0-100.0); Mean Platelet Volume 6.8; Monocytes # (A) 0.3 k/uL (0-1.0); Monocytes % (A) 7 %; Neutrophils # (A) 2.1 k/uL (1.3-7.7); Neutrophils % (A) 43 %; Platelet Count 278 k/uL (150-450); RBC 4.35 m/uL (3.80-5.40); RDW 15.2 % (11.5-15.5); WBC 4.8 k/uL (3.8-10.6)
[2019-02-21 08:37] LABS: ALT 64 U/L (9-52); AST 34 U/L (14-36); African American GFR (CKD) >90 (>60 ml/min/1.73 sqM); Albumin 3.7 g/dL (3.5-5.0); Alkaline Phosphatase 49 U/L (38-126); Anion Gap 7 mmol/L; Blood Urea Nitrogen 8 mg/dL (7-17); Calcium 8.7 mg/dL (8.4-10.2); Carbon Dioxide 27 mmol/L (22-30); Chloride 105 mmol/L (98-107); Cholesterol 185 mg/dL (<200); Glucose 89 mg/dL (74-99); HDL Cholesterol 42 mg/dL (40-60); LDL Cholesterol,Calculated 122 mg/dL (0-99); Potassium 4.5 mmol/L (3.5-5.1); Sodium 139 mmol/L (137-145); Total Bilirubin 0.4 mg/dL (0.2-1.3); Total Protein 6.3 g/dL (6.3-8.2); Triglycerides 103 mg/dL (<150)
[2019-02-21] MEDS ORDERED: ASPIRIN 325 MG TAB PO SCH (09:00)
[2019-02-21] MEDS ORDERED: HALOPERIDOL 5 MG TAB PO SCH (09:00)
[2019-02-21] MEDS ORDERED: SODIUM CHLORIDE 0.9% 1,000 ML IV SCH (09:30)
--- NOTE | 2019-02-21 09:32 | US ---
EXAMINATION TYPE: US abdomen complete DATE OF EXAM: 02/21/2019 COMPARISON: CT 09/23/2017, US 10/24/2015 CLINICAL HISTORY: abd pain . Cholecystectomy. IVC filter. Difficult exam due to patient body habitus EXAM MEASUREMENTS: Liver Length: 18.8 cm Gallbladder Wall: Surgically absent CBD: 0.6 cm Spleen: 11.5 cm Right Kidney: 10.8 x 4.3 x 4.8 cm Left Kidney: 9.9 x 4.9 x 4.4 cm Pancreas: Obscured by bowel gas Liver: Measuring upper limits of normal. Heterogeneous Gallbladder: Surgically absent Evidence for sonographic Zuniga's sign: No CBD: wnl Spleen: wnl Right Kidney: No hydronephrosis or masses seen Left Kidney: No hydronephrosis or masses seen Upper IVC: wnl Abd Aorta: wnl as visualized The pancreas is poorly visualized. The liver is mildly prominent measuring 19 cm. It is heterogenous. The gallbladder is been removed. The distal common hepatic duct measures 6 mm. There is no sonographi c Zuniga's sign. The spleen is normal in size. Both kidneys are normal. Visualized portions of the aorta and IVC are unremarkable. IMPRESSION: 1. MILD HEPATOMEGALY. 2. STATUS POST CHOLECYSTECTOMY.
[2019-02-21] MEDS: buPROPion XL 300 MG TAB.ER.24H PO SCH (10:12)
[2019-02-21] MEDS: ENOXAPARIN 60 MG/0.6 ML SYRINGE SQ STA ×2 (10:13→10:26)
[2019-02-21] MEDS ORDERED: ALPRAZolam 0.25 MG TAB PO PRN (10:26)
[2019-02-21] MEDS ORDERED: ALPRAZolam 0.5 MG TAB PO PRN (10:26)
[2019-02-21] MEDS ORDERED: SODIUM CHLORIDE 0.9% 1,000 ML in EMPTY BAG 1 BAG IV ONE (10:26)
[2019-02-21] MEDS ORDERED: ASPIRIN 325 MG TAB PO STA (10:26)
[2019-02-21] MEDS ORDERED: NITROGLYCERIN SL TABS 0.4 MG TAB SUBLINGUAL PRN (10:26)
[2019-02-21] MEDS ORDERED: ATORVASTATIN 80 MG TAB PO STA (10:26)
[2019-02-21] MEDS ORDERED: HEPARIN SOD,PORK IN 0.45% NACL 25,000 UNIT in 0.45% NACL 1 250ML.BAG IV SCH (10:30)
--- NOTE | 2019-02-21 11:58 | PN ---
PROGRESS NOTE Mrs Alicia came in with episode of chest pain which she describes as a heavy squeezing feeling in the upper chest. Initial troponin was normal. Subsequent troponins are both elevated but flat at 0.125 and 0.124. She continues to have episodes of chest tightness and pressure. Her D-dimer is not significantly elevated. She is complaining of squeezing in the chest. I am recommending coronary angiography. I explained her the rationale, risks, benefits, and options. She has some rash in both her groins. I will perform from right radial approach. Rationale, risks, benefits and options regarding cardiac cath explained. She understands all details and wishes to proceed with the procedure. MMODL / IJN: [id number] /
--- NOTE | 2019-02-21 12:13 | P.CRDCN ---
History of Present Illness History of present illness: This is a pleasant 38-year-old female past medical history significant for hypertension, PE in the past 2014 after cholecystectomy A full-term place, chronic nicotine dependence and morbid obesity. She follows in the office with Dr. Bustamante. We've been asked to see her in consultation secondary to chest discomfort. She states yesterday while undergoing an MRI of her left hip she felt sharp pain in the midsternal region that radiated through to the back. There is no specific aggravating or alleviating factor. She went home and was able to lay down and take a nap for about 2 hours. When she woke up she was having a heavy pressure sensation in the midsternal region. This was associated with mild nausea and shortness of breath. The pain radiated through to the back into the base of her neck and her left arm also felt mildly heavy. She states a couple of days ago she did vomit with no specific aggravating cause. At the time of my exam she continues to have mild chest discomfort described as a pressure squeezing sensation. There is some reproducibility to discomfort in the epigastric region. EKG reveals sinus mechanism with no acute ST or T wave abnormalities noted. Chest x-ray is negative for an acute cardiopulmonary process. Laboratory data reviewed, WBC 4.8, hemoglobin 13.1, platelets 278, d-dimer 0.6, sodium 139, potassium 4.5, creatinine 0.82 with a GFR greater than 90, AST 46, ALT 66, troponin first one was negative second 0.124 and third 0.125, lipase 408, LDL 102 and HDL 42. Current cardiac medications include verapamil 180 mg daily. The patient is on metformin but states she is not diabetic is being used by her [employer]. She recently underwent a dobutamine stress echocardiogram in April 2018 for which she did not achieve 85% predicted heart rate however at 80% there is no EKG or echocardiographic evidence of ischemia. Echocardiogram at that time revealed preserved LV systolic function with ejection fraction 55-60% At the time of my exam: CONSTITUTIONAL: Denies fever. Denies chills. EYES: Denies blurred vision. Denies vision changes. Denies eye pain. EARS, NOSE, MOUTH & THROAT: Denies headache. Denies sore throat. Denies ear pain. CARDIOVASCULAR: Denies chest pain. Denies shortness of breath. Denies orthopnea. Denies PND. Denies palpitations. RESPIRATORY: Denies cough. GASTROINTESTINAL: Denies abdominal pain. Denies diarrhea. Denies constipation. Denies nausea. Denies vomiting. MUSCULOSKELETAL: Denies myalgias. INTEGUMENTARY: Denies pruitis. Denies rash. NEUROLOGIC: Denies numbness. Denies tingling. Denies weakness. PSYCHIATRIC: Denies anxiety. Denies depression. ENDOCRINE: Denies fatigue. Denies weight change. Denies polydipsia. Denies polyurina. GENITOURINARY: Denies burning, hematuria or urgency with micturation. HEMATOLOGIC: Denies history of anemia. Denies bleeding. Blood pressure 103/66 heart rate 70 afebrile maintaining oxygen saturation on room air GENERAL: This is a 38-year-old female in no apparent distress at the time of my examination. Morbidly obese. HEENT: Head is atraumatic, normocephalic. Pupils are equal, round. Sclerae anicteric. Conjunctivae are clear. Mucous membranes of the mouth are moist. Neck is supple. There is no jugular venous distention. No carotid bruit is heard. LUNGS: Clear to auscultation no wheezes, rales or rhonchi. No chest wall tenderness is noted on palpation or with deep breathing. HEART: Regular rate and rhythm with faint systolic ejection murmur at the base, no rubs or gallops. S1 and S2 heard. ABDOMEN: Soft, mildly tender at the epigastric region as well as the right upper quadrant. Bowel sounds are heard. No organomegaly noted. EXTREMITIES: No evidence of peripheral edema and no calf tenderness noted. VASCULAR: Radial and dorsalis pedis pulses palpated, no evidence of clubbing. NEUROLOGIC: Patient is awake, alert and oriented x3. ASSESSMENT Non-ST elevated myocardial infarction Hypertension History of palpitations, rare PVC's noted on outpatient Holter monitoring in the past. History of PE in 2015 after cholecystectomy Chronic nicotine dependence Morbid obesity, BMI 55 PLAN Initiate on heparin infusion. Recommend proceeding with cardiac catheterization to further assess for coronary artery disease. I have discussed the risks, benefits and alternative therapies for the above-mentioned procedure and for both sedation/analgesia as well as necessary blood product administration, if indicated, as they pertain to this patient. The patient has indicated understanding and acceptance of the risks and procedures discussed. Questions have been answered appropriately and she is agreeable to move forward with the above-stated procedure. Initiate on atorvastatin 40 mg at bedtime. Further recommendations to follow based upon clinical course. Thank you kindly for this consultation. Nurse Practitioner note has been reviewed, I agree with a documented findings and plan of care. Patient was seen and examined. 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, migraine History of Any Multi-Drug Resistant Organisms: None Reported Past Surgical History: Ablation, Section, Cholecystectomy, Uterine Ablation Additional Past Surgical History / Comment(s): [place] filter, D&C, c-sect x 2 Past Anesthesia/Blood Transfusion Reactions: No Reported Reaction Past Psychological History: Anxiety, Bipolar, Depression, PTSD, Schizoaffective Disorder Smoking Status: Current every day smoker Past Alcohol Use History: None Reported Past Drug Use History: Marijuana - Past Family History Mother Family Medical History: Pulmonary Embolus Father Family Medical History: No Reported History Brother(s) Family Medical History: No Reported History Son(s) Additional Family Medical History / Comment(s): autistic Daughter(s) Additional Family Medical History / Comment(s): adhd/odd Medications and Allergies Home Medications Medication Instructions Recorded Confirmed Type Cyclobenzaprine [Flexeril] 10 mg PO TID 05/18/17 02/21/19 History Ranitidine HCl 150 mg PO HS 05/25/18 02/21/19 History Folic Acid 1 mg PO DAILY 05/31/18 02/21/19 History SUMAtriptan SUCCINATE [Imitrex] 100 mg PO BID PRN 05/31/18 02/21/19 History Benztropine Mesylate [Cogentin] 1 mg PO DAILY PRN 01/07/19 02/21/19 History Haloperidol [Haldol] 1 mg PO HS 01/07/19 02/21/19 History Ibuprofen [Motrin] 800 mg PO TID 01/07/19 02/21/19 History Lacosamide [Vimpat] 50 mg PO BID 01/07/19 02/21/19 History Ondansetron HCl [Zofran] 8 mg PO BID PRN 01/07/19 02/21/19 History LORazepam [Ativan] 2 tab PO Q8H PRN 02/20/19 02/21/19 History Oxybutynin Chloride [Ditropan] 5 mg PO BID 02/20/19 02/21/19 History Verapamil HCl [Verapamil ER] 180 mg PO DAILY 02/20/19 02/21/19 History buPROPion XL [Wellbutrin XL] 300 mg PO DAILY 02/20/19 02/21/19 History hydrOXYzine PAMOATE [Vistaril] 25 mg PO HS 02/20/19 02/21/19 History metFORMIN HCL [Glucophage] 850 mg PO BID 02/20/19 02/21/19 History traZODone HCL [Desyrel] 100 mg PO HS 02/20/19 02/21/19 History Allergies Allergy/AdvReac Type Severity Reaction Status Date / Time No Known Allergies Allergy Verified 02/20/19 23:51 Physical Exam Vitals: Vital Signs Temp Pulse Pulse Resp BP BP Pulse Ox 02/21/19 04:00 97.5 F L 73 18 120/76 94 L 02/20/19 23:45 97.6 F 69 18 129/84 95 02/20/19 23:00 98.6 F 70 21 155/96 95 02/20/19 22:50 74 13 155/96 94 L 02/20/19 22:40 141/91 02/20/19 22:30 75 19 140/93 94 L 02/20/19 22:10 73 18 150/101 95 02/20/19 21:50 78 16 135/94 93 L 02/20/19 20:38 93 L 02/20/19 20:37 99.2 F 79 17 152/104 95 Intake and Output 02/20/19 02/21/19 02/21/19 22:59 06:59 14:59 Other: Voiding Method Toilet Weight 150.139 kg Results 02/21/19 07:39 02/21/19 07:39 Cardiac Enzymes 02/20/19 02/20/19 02/20/19 Range/Units 21:11 21:11 23:37 AST 46 H (14-36) U/L Troponin I <0.012 0.124 H* (0.000-0.034) ng/mL Coagulation 02/20/19 Range/Units 21:11 PT 9.9 (9.0-12.0) sec APTT 22.6 (22.0-30.0) sec CBC 02/20/19 Range/Units 21:11 WBC 6.7 (3.8-10.6) k/uL RBC 4.64 (3.80-5.40) m/uL Hgb 13.7 (11.4-16.0) gm/dL Hct 42.2 (34.0-46.0) % Plt Count 280 (150-450) k/uL Comprehensive Metabolic Panel 02/20/19 Range/Units 21:11 Sodium 140 (137-145) mmol/L Potassium 4.9 (3.5-5.1) mmol/L Chloride 104 (98-107) mmol/L Carbon Dioxide 25 (22-30) mmol/L BUN 9 (7-17) mg/dL Creatinine 0.81 (0.52-1.04) mg/dL Glucose 109 H (74-99) mg/dL Calcium 9.3 (8.4-10.2) mg/dL AST 46 H (14-36) U/L ALT 66 H (9-52) U/L Alkaline Phosphatase 54 (38-126) U/L Total Protein 7.3 (6.3-8.2) g/dL Albumin 4.4 (3.5-5.0) g/dL Current Medications Generic Name Dose Route Start Last Admin Trade Name Freq PRN Reason Stop Dose Admin Hydrocodone Bitart/Acetaminophen 1 each 02/21/19 00:40 [place] 5-325 PO Q6HR PRN Pain Aspirin 325 mg 02/21/19 09:00 Aspirin PO DAILY [facility] Benztropine Mesylate 1 mg 02/21/19 00:36 Cogentin PO DAILY PRN Spasms Bupropion HCl 300 mg 02/21/19 09:00 Wellbutrin Xl PO DAILY [facility] Cyclobenzaprine HCl 10 mg 02/21/19 00:45 02/21/19 01:18 Flexeril PO 10 mg TID [facility] Administration Folic Acid 1 mg 02/21/19 09:00 Folic Acid PO DAILY [facility] Haloperidol Lactate 1 mg 02/21/19 21:00 Haldol Oral Soln PO HS [facility] Heparin Sodium (Porcine) 5,000 unit 02/21/19 08:00 Heparin SQ Q8HR RIKI Hydroxyzine Pamoate 25 mg 02/21/19 00:45 02/21/19 01:17 Vistaril PO 25 mg HS RIKI Administration Lacosamide 50 mg 02/21/19 00:45 02/21/19 01:18 Vimpat PO 50 mg BID RIKI Administration Lorazepam 1 mg 02/21/19 00:59 02/21/19 01:23 Ativan PO 1 mg Q8H PRN Administration Anxiety Nitroglycerin 0.4 mg 02/20/19 23:14 Nitrostat SUBLINGUAL Q5M PRN Chest Pain Ondansetron HCl 8 mg 02/21/19 00:36 Zofran PO BID PRN Nausea Oxybutynin Chloride 5 mg 02/21/19 00:45 02/21/19 01:17 Ditropan PO 5 mg BID RIKI Administration Trazodone HCl 100 mg 02/21/19 00:45 02/21/19 01:18 Desyrel PO 100 mg HS RIKI Administration Verapamil HCl 180 mg 02/21/19 09:00 Isoptin Sr PO DAILY RIKI Intake and Output 02/20/19 02/21/19 02/21/19 22:59 06:59 14:59 Other: Voiding Method Toilet Weight 150.139 kg 02/20/19 21:11 02/20/19 21:11
[2019-02-21] MEDS ORDERED: LIDOCAINE 1% INJ 10MG/ML (20 ML MDV) ONE (14:47)
[2019-02-21] MEDS ORDERED: VERAPAMIL 2.5 MG/ML 2 ML AMP ONE (14:47)
--- NOTE | 2019-02-21 15:06 | P.PN ---
Subjective Progress Note Date: 02/21/19 Principal diagnosis: Chest pain Patient was seen and examined. No acute events overnight. Patient continues to report chest pain, excruciating and squeezing in nature. Patient also reports radiation of the chest pain into her left arm and bilateral neck. Patient reports aggravation of the pain with deep inspiration. Chest pain is associated with shortness of breath. She denies palpitations. No nausea or vomiting. No fever or chills. Objective - Vital Signs Vital signs: Vital Signs Temp 97.7 F 02/21/19 12:00 Pulse 70 02/21/19 12:00 Resp 16 02/21/19 12:00 BP 103/66 02/21/19 12:00 Pulse Ox 93 L 02/21/19 12:00 Intake & Output 02/20/19 02/21/19 02/21/19 18:59 06:59 18:59 Weight 150.139 kg Other: Voiding Method Toilet Toilet - Exam General: [non toxic], [no distress], [morbidly obese] Derm: [warm], [dry] Head: [atraumatic], [normocephalic], [symmetric] Eyes: [EOMI], [no lid lag], [anicteric sclera] Mouth: [no lip lesion], [mucus membranes moist] Cardiovascular: [S1S2 reg], [no murmur], [positive posterior tibial pulse bilateral], Lungs: [CTA bilateral], [no rhonchi, no rales] , [no accessory muscle use] Abdominal: [soft], [ nontender to palpation], [no guarding], [no appreciable organomegaly] Ext: [no gross muscle atrophy], [no edema], [no contractures] Neuro: [no focal neuro deficits] Psych: [Alert], [oriented], [appropriate affect] - Labs CBC & Chem 7: 02/21/19 07:39 02/21/19 07:39 Labs: Abnormal Lab Results - Last 24 Hours (Table) 02/20/19 02/20/19 02/21/19 Range/Units 21:11 23:37 07:39 D-Dimer (<0.60) mg/L FEU Glucose 109 H (74-99) mg/dL AST 46 H (14-36) U/L ALT 66 H 64 H (9-52) U/L Troponin I 0.124 H* (0.000-0.034) ng/mL LDL Cholesterol, Calc 122 H (0-99) mg/dL Lipase 408 H (23-300) U/L 02/21/19 02/21/19 Range/Units 07:39 07:39 D-Dimer 0.60 H (<0.60) mg/L FEU Glucose (74-99) mg/dL AST (14-36) U/L ALT (9-52) U/L Troponin I 0.125 H* (0.000-0.034) ng/mL LDL Cholesterol, Calc (0-99) mg/dL Lipase (23-300) U/L Assessment and Plan Assessment: Assessment and Plan Chest pain, typical, pleuritic as well Hypertension Smoker Morbid obesity Anxiety and depression Troponin is less than 0.012, 0.124, 0.125 with EKG showing normal sinus rhythm. Chest x-ray shows subsegmental atelectasis. Abdominal ultrasound shows hepatomegaly and postcholecystectomy. D-dimer elevated. Plans: Cardiology consulted, recommends cardiac catheterization today. Follow echocardiogram. Will order CTA of the chest to rule out PE. Continue aspirin and Lipitor. Follow cardiology consultation. BP 103/66. Plans: Continue verapamil. Monitor vitals, adjust medications as necessary. Plans: Nicotine patch if needed. BMI 55.1. Plans: Structured weight loss program. Plans: Continue Wellbutrin, haloperidol, trazodone and Xanax as needed. Patient admitted for chest pain, rule out acute coronary syndrome. Cardiology is consulted. Will order CTA chest to rule out PE. Patient is pending clinical improvement.
[2019-02-21] MEDS ORDERED: HEPARIN SODIUM 1,000 UN/ML (10ML VL) ONE (15:07)
[2019-02-21] MEDS ORDERED: IV FLUID CONTINUATION 500 ML IV ONE (15:10)
[2019-02-21] MEDS ORDERED: MIDAZOLAM (PF) 2 MG/2 ML VIAL IV ONE (15:12)
[2019-02-21] MEDS ORDERED: LIDOCAINE 1% INJ 10MG/ML (20 ML MDV) SQ ONE (15:12)
[2019-02-21] MEDS: VERAPAMIL SYRINGE (5 MG/10 ML) INTRAARTER ONE ×2 (15:15→15:45)
[2019-02-21] MEDS ORDERED: HEPARIN SODIUM 1,000 UN/ML (10ML VL) IV ONE (15:27)
[2019-02-21] MEDS ORDERED: IOPAMIDOL-370 100ML BTL INJ ONE (15:42)
[2019-02-21] MEDS ORDERED: NITROGLYCERIN SL TABS 0.4 MG TAB SUBLINGUAL ONE (15:43)
[2019-02-21] MEDS ORDERED: ZOLPIDEM 5 MG TAB PO PRN (15:56)
[2019-02-21] MEDS ORDERED: RX INFO: IV CONTRAST WAS GIVEN 1 EACH MISC MISCELLANE PRN (16:08)
[2019-02-21] MEDS: HEPARIN SODIUM,PORCINE 5,000 UNIT/ML 1 ML VIAL SQ SCH ×2 (16:23→22:58)
[2019-02-21] MEDS: SODIUM CHLORIDE 0.9% 1,000 ML IV SCH (16:24)
[2019-02-21] MEDS ORDERED: ENOXAPARIN 60 MG/0.6 ML SYRINGE SQ SCH (21:00)
--- NOTE | 2019-02-22 00:03 | CC ---
CARDIAC CATHETERIZATION REPORT DATE OF SERVICE: 02/21/2019. PROCEDURE: Left heart catheterization, coronary angiography and left ventriculography. PERFORMED BY: Dr. Mitch Rogers. CLINICAL INFORMATION: Mrs. Josselyn Alicia is a 38-year-old lady with history of obesity and underlying mental health issues. Comes into the hospital with chest pain which she describes as a squeezing feeling across the chest. Her troponin which was normal to begin with, went up to 0.125 and she continued to have chest pressure. Her D-dimer was equivocal at 0.60. She was advised coronary angiography because of ongoing chest pressure and elevated troponin with a diagnosis of non-ST elevation CO. PROCEDURE NOTE: Under local anesthesia and strict aseptic precautions, a 6-Mohawk introducer was placed in the right radial artery. The patient had a bovine arch. It was difficult to get into the ascending aorta. However, with a combination of a BURNS catheter and a Glidewire, I was able to get into the ascending aorta. Using an Ultimata 1 catheter I performed selective coronary angiography of the left coronary artery and a JR3.5 catheter was used for the RCA. A pigtail catheter was used to check pressures and LV- gram was performed in the 30 degree ROWLAND projection. Patient tolerated procedure well without complication. The sheath was taken out and TR band applied as per protocol. She received 2500 units of heparin. The patient tolerated the procedure well without complications. She did not have any significant obstructive CAD. The findings and results were discussed with the patient and I spoke to her by phone. SEDATION: Moderate conscious sedation time was 35 minutes. Patient was administered Versed. Oxygen saturation, hemodynamics and EKG were monitored closely. CARDIAC CATHETERIZATION FINDINGS: The left ventricular end-diastolic pressure was 12 mmHg without any gradient across the aortic valve. CORONARY ANGIOGRAPHY FINDINGS: RIGHT CORONARY ARTERY: Technically a large dominant vessel. No significant disease. Distally bifurcates into a large PDA and PLV, both of which have no significant disease. Only minor irregularities were noted. LEFT MAIN CORONARY ARTERY: This is a long, patent disease-free vessel that trifurcates into LAD, ramus and circumflex. Left main itself is free of significant disease. LEFT ANTERIOR DESCENDING CORONARY ARTERY: Good caliber vessel extends along the anterior wall, gives off small septal and diagonal branches, runs towards the apex to supply a sizable amount of myocardium. Distally it curves over the apex to supply the inferoapical portion of left ventricle. No significant disease is noted in the LAD system. RAMUS INTERMEDIUS: This is a good caliber, good distribution vessel that runs in the diagonal distribution gives off 2 secondary branches, has minor irregularities no significant disease. LEFT POSTERIOR CIRCUMFLEX CORONARY ARTERY: Technically nondominant vessel, gives off distally 2 branches, has minor irregularities. No significant disease. Circumflex therefore is nondominant, has no significant disease. FINAL IMPRESSION: This patient has a right dominant system. No significant obstructive disease. Normal filling pressures without any gradient across aortic valve. LEFT VENTRICULOGRAM: Revealed a estimated ejection fraction of 60% by visual inspection without any mitral regurgitation. FINAL IMPRESSION: This patient has a right dominant system, no significant obstructive disease. Normal filling pressures and normal LV with ejection fraction of 60% by visual inspection. RECOMMENDATIONS: Findings were discussed with the patient and . I am recommending continued risk factor modification without intervention. I discussed with the patient regarding weight reduction, diet, and exercise. She will be discharged tomorrow if she remains stable. MMODL / IJN: [id number] /
[2019-02-22 05:13] VITALS: RESP 15
[2019-02-22] MEDS: SODIUM CHLORIDE 0.9% 1,000 ML IV SCH (05:16)
[2019-02-22] MEDS ORDERED: ASPIRIN 81 MG PO SCH (09:00)
[2019-02-22] MEDS ORDERED: ATORVASTATIN 40 MG TAB PO SCH (09:00)
[2019-02-22] MEDS: CYCLOBENZAPRINE 10 MG TAB PO SCH ×2 (09:17→17:29)
[2019-02-22] MEDS: OXYBUTYNIN CHLORIDE 5 MG TAB PO SCH (09:17)
[2019-02-22] MEDS: FOLIC ACID 1 MG TAB PO SCH (09:17)
[2019-02-22] MEDS: LACOSAMIDE 50 MG TABLET PO SCH (09:17)
[2019-02-22] MEDS: VERAPAMIL SR 180 MG TABLET.ER PO SCH (09:17)
[2019-02-22] MEDS: HEPARIN SODIUM,PORCINE 5,000 UNIT/ML 1 ML VIAL SQ SCH ×2 (09:18→17:29)
[2019-02-22] MEDS: buPROPion XL 300 MG TAB.ER.24H PO SCH (09:18)
[2019-02-22 09:20] LABS: African American GFR (CKD) >90 (>60 ml/min/1.73 sqM); Anion Gap 9 mmol/L; Blood Urea Nitrogen 8 mg/dL (7-17); Calcium 9.1 mg/dL (8.4-10.2); Carbon Dioxide 27 mmol/L (22-30); Chloride 103 mmol/L (98-107); Glucose 129 mg/dL (74-99); Potassium 4.1 mmol/L (3.5-5.1); Sodium 139 mmol/L (137-145)
--- NOTE | 2019-02-22 11:24 | ECHOF ---
Referral Reason:nstemi MEASUREMENTS -------- HEIGHT: 165.1 cm WEIGHT: 150.1 kg BP: 149/80 RVIDd: 1.8 cm (< 3.3) IVSd: 0.8 cm (0.6 - 1.1) LVIDd: 4.4 cm (3.9 - 5.3) LVPWd: 0.8 cm (0.6 - 1.1) Ao Diam: 3.6 cm (2.0 - 3.7) AV Cusp: 1.9 cm (1.5 - 2.6) LA Diam: 3.5 cm (2.7 - 3.8) MV EXCURSION: 27.332 mm (> 18.000) MV EF SLOPE: 52 mm/s (70 - 150) EPSS: 1.0 cm MV E Blayne: 0.99 m/s MV DecT: 240 ms MV A Blayne: 0.66 m/s MV E/A Ratio: 1.51 AV maxP.99 mmHg AV meanP.20 mmHg FINDINGS -------- Sinus rhythm. This was a technically good study. Morbid Obesity The left ventricular size is normal. Left ventricular wall thickness is normal. There is normal g lobal left ventricular contractility. Overall left ventricular systolic function is normal with, an EF between 55 - 60 %. The right ventricle is normal in size. The right ventricular systolic function is normal. The left atrium is normal in size. The right atrial size is normal. All four chambers are structurally normal in size and function. Interatrial and interventricular septum intact. The aortic valve is trileaflet and appears structurally normal. The mitral valve is normal. The tricuspid valve appears structurally normal. Trace tricuspid regurgitation present. Right flor tricular systolic pressure is normal at < 35 mmHg. There is no pulmonic regurgitation present. The aortic root size is normal. The pulmonary artery is normal. Normal inferior vena cava with normal inspiratory collapse consistent with estimated right atrial pre ssure of 5 mmHg. All pulmonary veins appear normal. Echo free space represents a pericardial fat pad. CONCLUSIONS -------- 1. Sinus rhythm. 2. This was a technically good study. 3. Morbid Obesity 4. The left ventricular size is normal. 5. Left ventricular wall thickness is normal. 6. There is normal global left ventricular contractility. 7. Overall left ventricular systolic function is normal with, an EF between 55 - 60 %. 8. The right ventricle is normal in size. 9. The right ventricular systolic function is normal. 10. The left atrium is normal in size. 11. All four chambers are structurally normal in size and function. 12. The aortic valve is trileaflet and appears structurally normal. 13. The mitral valve is normal. 14. The tricuspid valve appears structurally normal. 15. Trace tricuspid regurgitation present. 16. Right ventricular systolic pressure is normal at < 35 mmHg. 17. There is no pulmonic regurgitation present. 18. The aortic root size is normal. 19. The pulmonary artery is normal. 20. All pulmonary veins appear normal. 21. Echo free space represents a pericardial fat pad. DATA MIGRATION LEAD: Melinda Thompson RDCS
[2019-02-22 11:32] VITALS: TEMP 97.5
--- NOTE | 2019-02-22 15:19 | P.PN ---
Subjective Progress Note Date: 02/22/19 This is a pleasant 38-year-old female past medical history significant for hypertension, PE in the past 2015 after cholecystectomy A full-term place, chronic nicotine dependence and morbid obesity. She follows in the office with Dr. Bustamante. We've been asked to see her in consultation secondary to chest discomfort. She states yesterday while undergoing an MRI of her left hip she felt sharp pain in the midsternal region that radiated through to the back. There is no specific aggravating or alleviating factor. She went home and was able to lay down and take a nap for about 2 hours. When she woke up she was having a heavy pressure sensation in the midsternal region. This was associated with mild nausea and shortness of breath. The pain radiated through to the back into the base of her neck and her left arm also felt mildly heavy. She states a couple of days ago she did vomit with no specific aggravating cause. At the time of my exam she continues to have mild chest discomfort described as a pressure squeezing sensation. There is some reproducibility to discomfort in t he epigastric region. Patient underwent a cardiac catheterization by Dr. Parminder Rogers yesterday did not reveal any significant obstructive coronary artery disease. Patient was seen and examined today 90 further chest discomfort. Hemodynamically stable. Objective - Vital Signs Vital signs: Vital Signs Temp 97.5 F L 02/22/19 08:00 Pulse 80 02/22/19 12:00 Resp 15 02/22/19 04:00 BP 119/61 02/22/19 12:00 Pulse Ox 94 L 02/22/19 12:00 Intake & Output 02/21/19 02/22/19 02/22/19 18:59 06:59 18:59 Intake Total 150 1254 500 Output Total 300 Balance -150 1254 500 Intake: IV 150 10 Invasive Line 1 10 Intake, IV Titration 1000 20 Amount Sodium Chloride 0.9% 1, 1000 20 000 ml @ 100 mls/hr IV . Q10H RIKI Rx#:[id number] Oral 244 480 Output: Urine 300 Other: Voiding Method Toilet Toilet Bedpan # Voids 3 - Exam Blood pressure 103/66 heart rate 70 afebrile maintaining oxygen saturation on room air GENERAL: This is a 38-year-old female in no apparent distress at the time of my examination. Morbidly obese. HEENT: Head is atraumatic, normocephalic. Pupils are equal, round. Sclerae anicteric. Conjunctivae are clear. Mucous membranes of the mouth are moist. Neck is supple. There is no jugular venous distention. No carotid bruit is heard. LUNGS: Clear to auscultation no wheezes, rales or rhonchi. No chest wall tenderness is noted on palpation or with deep breathing. HEART: Regular rate and rhythm with faint systolic ejection murmur at the base, no rubs or gallops. S1 and S2 heard. ABDOMEN: Soft, mildly tender at the epigastric region as well as the right upper quadrant. Bowel sounds are heard. No organomegaly noted. EXTREMITIES: No evidence of peripheral edema and no calf tenderness noted. VASCULAR: Radial and dorsalis pedis pulses palpated, no evidence of clubbing. NEUROLOGIC: Patient is awake, alert and oriented x3. - Labs CBC & Chem 7: 02/21/19 07:39 02/22/19 08:21 Labs: Abnormal Lab Results - Last 24 Hours (Table) 02/22/19 Range/Units 08:21 Glucose 129 H (74-99) mg/dL Assessment and Plan Plan: ASSESSMENT and plan #1 chest pain, status post cardiac catheterization which did not reveal any significant obstructive coronary artery disease #2 Hypertension #3 History of palpitations, rare PVC's noted on outpatient Holter monitoring in the past. #4 History of PE in 2015 after cholecystectomy #5 Chronic nicotine dependence #6 Morbid obesity, BMI 55 Plan Cardiology's perspective, patient may be able to be discharged home today. We'll make her a follow-up appointment in the office post discharge. DNP note has been reviewed, I agree with a documented findings and plan of care. Patient was seen and examined.
--- NOTE | 2019-02-22 15:53 | P.DS ---
Providers Date of admission: 02/21/19 12:27 Expected date of discharge: 02/22/19 Attending physician: Honorio Franco MD Consults: 02/20/19 23:14 Consult Physician Routine Consulting Provider: [facility] Consult Reason/Comments: Chest Pain Do you want consulting provider notified?: Yes Primary care physician: [facility] Hospital Course: 38-year-old female with history of venous thromboembolic some, obesity, depression, anxiety, degenerative joint disease In came into the ER after experiencing chest pain. pain started while having MRI of the left hip done she felt squeezing-like poking pain over her chest 10 out of 10 in severity and nonradiating , that resolved. then while at home resting, suddenly exprienced squeezing chest pain central radiating to neck and back, 8/10 in severity , worse with deep breathing and movement , no relieving factor denies any associated vomiting or diaphoresis fevers or chills denies any coughing shortness of breath or wheezing patient experienced similar pain in the past and she had a stress test done April 2018 which was negative. Currently EKG showing normal sinus rhythm cardiac enzymes are negative labs unremarkable. patient admitted for cardiac chest pain rule out acute coronary syndrome and observation. Troponin was less than 0.012, 0.124, 0.125 with EKG showing normal sinus rhythm. Chest x-ray showed subsegmental atelectasis. Abdominal ultrasound showed hepatomegaly and postcholecystectomy. D-dimer was elevated. Cardiology was consulted and recommended a cardiac catheterization. Cardiac catheterization showed no significant obstructive disease. Echocardiogram was done which showed EF between 55-60%. Due to the pleuritic nature of her chest pain, CTA of the chest was ordered to rule out PE. Patient was continued on aspirin and Lipitor. Otherwise, patient was resumed on her home medications for hypertension, anxiety and depression. Patient was seen and examined this morning. No acute events overnight. Patient reports complete resolution of her chest pain. She denies any chest pain, shortness of breath or palpitations. No nausea or vomiting. No fever or ch ills. General: [non toxic], [no distress], [morbidly obese] Derm: [warm], [dry] Head: [atraumatic], [normocephalic], [symmetric] Eyes: [EOMI], [no lid lag], [anicteric sclera] Mouth: [no lip lesion], [mucus membranes moist] Cardiovascular: [S1S2 reg], [no murmur], [positive posterior tibial pulse bilateral], Lungs: [CTA bilateral], [no rhonchi, no rales] , [no accessory muscle use] Abdominal: [soft], [ nontender to palpation], [no guarding], [no appreciable organomegaly] Ext: [no gross muscle atrophy], [no edema], [no contractures] Neuro: [no focal neuro deficits] Psych: [Alert], [oriented], [appropriate affect] Assessment and Plan Chest pain, typical, pleuritic as well Hypertension Smoker Morbid obesity Anxiety and depression Troponin is less than 0.012, 0.124, 0.125 with EKG showing normal sinus rhythm. Chest x-ray shows subsegmental atelectasis. Abdominal ultrasound shows hepatomegaly and postcholecystectomy. D-dimer elevated. Echocardiogram shows EF 55-60%. Plans: Cardiology consulted, recommends cardiac catheterization today. Will order CTA of the chest to rule out PE. Continue aspirin and Lipitor. Follow cardiology consultation. BP 119/61. Plans: Continue verapamil. Monitor vitals, adjust medications as necessary. Plans: Nicotine patch if needed. BMI 55.1. Plans: Structured weight loss program. Plans: Continue Wellbutrin, haloperidol, trazodone and Xanax as needed. Patient admitted for chest pain, rule out acute coronary syndrome. Cardiology is consulted. Patient to be discharged home with CTA of the chest is negative. Pertinent Studies: Chest x-ray, abdominal ultrasound, cardiac echocardiogram. CTA of the chest. Procedures: Cardiac catheterization Patient Condition at Discharge: Serious Plan - Discharge Summary Discharge Rx Participant: No New Discharge Prescriptions: New Aspirin 81 mg PO DAILY #30 chew Atorvastatin [Lipitor] 40 mg PO DAILY #30 tab Continue Cyclobenzaprine [Flexeril] 10 mg PO TID Ranitidine HCl 150 mg PO HS SUMAtriptan SUCCINATE [Imitrex] 100 mg PO BID PRN PRN Reason: Migraine Headache Folic Acid 1 mg PO DAILY Haloperidol [Haldol] 1 mg PO HS Benztropine Mesylate [Cogentin] 1 mg PO DAILY PRN PRN Reason: Spasms Ondansetron HCl [Zofran] 8 mg PO BID PRN PRN Reason: Nausea Lacosamide [Vimpat] 50 mg PO BID Ibuprofen [Motrin] 800 mg PO TID LORazepam [Ativan] 2 tab PO Q8H PRN PRN Reason: Anxiety buPROPion XL [Wellbutrin XL] 300 mg PO DAILY traZODone HCL [Desyrel] 100 mg PO HS metFORMIN HCL [Glucophage] 850 mg PO BID hydrOXYzine PAMOATE [Vistaril] 25 mg PO HS Verapamil HCl [Verapamil ER] 180 mg PO DAILY Oxybutynin Chloride [Ditropan] 5 mg PO BID Discharge Medication List Cyclobenzaprine [Flexeril] 10 mg PO TID 05/18/17 [History] Ranitidine HCl 150 mg PO HS 05/25/18 [History] Folic Acid 1 mg PO DAILY 05/31/18 [History] SUMAtriptan SUCCINATE [Imitrex] 100 mg PO BID PRN 05/31/18 [History] Benztropine Mesylate [Cogentin] 1 mg PO DAILY PRN 01/07/19 [History] Haloperidol [Haldol] 1 mg PO HS 01/07/19 [History] Ibuprofen [Motrin] 800 mg PO TID 01/07/19 [History] Lacosamide [Vimpat] 50 mg PO BID 01/07/19 [History] Ondansetron HCl [Zofran] 8 mg PO BID PRN 01/07/19 [History] LORazepam [Ativan] 2 tab PO Q8H PRN 02/20/19 [History] Oxybutynin Chloride [Ditropan] 5 mg PO BID 02/20/19 [History] Verapamil HCl [Verapamil ER] 180 mg PO DAILY 02/20/19 [History] buPROPion XL [Wellbutrin XL] 300 mg PO DAILY 02/20/19 [History] hydrOXYzine PAMOATE [Vistaril] 25 mg PO HS 02/20/19 [History] metFORMIN HCL [Glucophage] 850 mg PO BID 02/20/19 [History] traZODone HCL [Desyrel] 100 mg PO HS 02/20/19 [History] Aspirin 81 mg PO DAILY #30 chew 02/22/19 [Rx] Atorvastatin [Lipitor] 40 mg PO DAILY #30 tab 02/22/19 [Rx] Follow up Appointment(s)/Referral(s): [facility] [[facility]] - 1-2 days Activity/Diet/Wound Care/Special Instructions: Diet: Heart healthy Follow-up PCP within 1-2 days of discharge. Please take all medications as advised. Discharge Disposition: HOME SELF-CARE
--- NOTE | 2019-02-22 17:23 | CT ---
EXAMINATION TYPE: CT chest angio for PE with contrast and with 3-D reconstruction renderings DATE OF EXAM: 02/22/2019 COMPARISON: 01/31/2017 HISTORY: Pleuritic chest pain, elevated D dimer. CT DLP: 799.7 mGycm Automated exposure control for dose reduction was used. CONTRAST: CT Chest for pulmonary embolism performed with with IV Contrast, patient injected with 100 mL of Isovue 370. FINDINGS: There is patient motion artifact limiting visualization to a mild degree on all sequences. LUNGS: The lungs are grossly clear, there is no concerning parenchymal mass or nodule identified. The re is no pleural effusion or pneumothorax seen. The tracheobronchial tree is patent. MEDIASTINUM: There is satisfactory enhancement of the pulmonary artery and its branches, there is no CT evidence for pulmonary embolism. No acute aortic findings. There is mild cardiomegaly. No pericard ial effusion. There are no greater than 1 cm hilar or mediastinal lymph nodes. OTHER: No additional significant abnormality is seen. IMPRESSION: No acute process.
[2019-02-22 18:02] VITALS: BP 138/91; PULSE 79
== END 2019-02-22 17:55 | disposition home or self-care (01) | DRG 287 ==
LOC: EC 20:34 → 1SOBS 22:32 → OBSVTOIN 02-21 12:27 → 3SCARD 02-21 13:02
PROVIDERS: ADMIT Internal Medicine; ATTEND Internal Medicine
PROC: B2111ZZ Fluoroscopy of Multiple Coronary Arteries using Low Osmolar Contrast (ICD-10-PCS; 2019-02-21)
PROC: B2151ZZ Fluoroscopy of Left Heart using Low Osmolar Contrast (ICD-10-PCS; 2019-02-21)
PROC: 4A023N7 Measurement of Cardiac Sampling and Pressure, Left Heart, Percutaneous Approach (ICD-10-PCS; principal; 2019-02-21 14:45)
DX: R07.89 Other chest pain (principal); J98.11 Atelectasis; Z68.43 Body mass index [BMI] 50.0-59.9, adult; E66.01 Morbid (severe) obesity due to excess calories; F25.9 Schizoaffective disorder, unspecified; G62.9 Polyneuropathy, unspecified; R16.0 Hepatomegaly, not elsewhere classified; R07.81 Pleurodynia; F17.200 Nicotine dependence, unspecified, uncomplicated; F31.9 Bipolar disorder, unspecified; F43.10 Post-traumatic stress disorder, unspecified; I10 Essential (primary) hypertension; K21.9 Gastro-esophageal reflux disease without esophagitis; M19.90 Unspecified osteoarthritis, unspecified site; G43.909 Migraine, unspecified, not intractable, without status migrainosus; R21 Rash and other nonspecific skin eruption; F41.9 Anxiety disorder, unspecified; Z79.84 Long term (current) use of oral hypoglycemic drugs; Z79.899 Other long term (current) drug therapy; Z86.711 Personal history of pulmonary embolism; Z86.718 Personal history of other venous thrombosis and embolism; Z90.49 Acquired absence of other specified parts of digestive tract; Z82.49 Family history of ischemic heart disease and other diseases of the circulatory system
CPT/HCPCS: 36415; 71046; 71275; 76700; 80048; 80053; 80061; 83690; 83735; 84484; 85025; 85379; 85610; 85730; 93005; 93306; 93458; 96360; 99285

== ENCOUNTER 2019-04-16 19:55 | Emergency (ER) | payer OTHER ==
--- NOTE | 2019-04-16 20:04 | ED ---
URI HPI - General Chief Complaint: Upper Respiratory Infection Stated Complaint: cough, congestion Time Seen by Provider: 04/16/19 19:59 Source: patient Mode of arrival: ambulatory Limitations: no limitations - History of Present Illness Initial Comments: 38-year-old female presenting today for chief complaint of cough. Patient states she has had a cough for 2 through weeks. Patient states she has occasional chills denies fevers. Patient denies hemoptysis. Patient states she feels like she has a cold that will not go away. Patient states initially was productive. Now she states is dry. She states she occasionally gets a tickle in her throat. Denies any difficulty breathing swallowing any pain with swallowing denies vomiting diarrhea chest pain or shortness of breath. Patient denies any lower extremity swelling. Remaining review of system negative. Upon arrival patient appears well no signs of acute distress. - Related Data Home Medications Medication Instructions Recorded Confirmed Cyclobenzaprine [Flexeril] 10 mg PO TID 05/18/17 02/21/19 Ranitidine HCl 150 mg PO HS 05/25/18 02/21/19 Folic Acid 1 mg PO DAILY 05/31/18 02/21/19 SUMAtriptan SUCCINATE [Imitrex] 100 mg PO BID PRN 05/31/18 02/21/19 Benztropine Mesylate [Cogentin] 1 mg PO DAILY PRN 01/07/19 02/21/19 Haloperidol [Haldol] 1 mg PO HS 01/07/19 02/21/19 Ibuprofen [Motrin] 800 mg PO TID 01/07/19 02/21/19 Lacosamide [Vimpat] 50 mg PO BID 01/07/19 02/21/19 Ondansetron HCl [Zofran] 8 mg PO BID PRN 01/07/19 02/21/19 LORazepam [Ativan] 2 tab PO Q8H PRN 02/20/19 02/21/19 Oxybutynin Chloride [Ditropan] 5 mg PO BID 02/20/19 02/21/19 Verapamil HCl [Verapamil ER] 180 mg PO DAILY 02/20/19 02/21/19 buPROPion XL [Wellbutrin XL] 300 mg PO DAILY 02/20/19 02/21/19 hydrOXYzine PAMOATE [Vistaril] 25 mg PO HS 02/20/19 02/21/19 metFORMIN HCL [Glucophage] 850 mg PO BID 02/20/19 02/21/19 traZODone HCL [Desyrel] 100 mg PO HS 02/20/19 02/21/19 Previous Rx's Medication Instructions Recorded Aspirin 81 mg PO DAILY #30 chew 02/22/19 Atorvastatin [Lipitor] 40 mg PO DAILY #30 tab 02/22/19 Benzonatate [Tessalon Perles] 100 mg PO TID PRN 7 Days #21 cap 04/16/19 Allergies Allergy/AdvReac Type Severity Reaction Status Date / Time No Known Allergies Allergy Verified 04/16/19 19:57 Review of Systems ROS Statement: Those systems with pertinent positive or pertinent negative responses have been documented in the HPI. ROS Other: All systems not noted in ROS Statement are negative. 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, migraine History of Any Multi-Drug Resistant Organisms: None Reported Past Surgical History: Ablation, Section, Cholecystectomy, Uterine Ablation Additional Past Surgical History / Comment(s): Andreas filter, D&C, c-sect x 2 Past Anesthesia/Blood Transfusion Reactions: No Reported Reaction Past Psychological History: Anxiety, Bipolar, Depression, PTSD, Schizoaffective Disorder Smoking Status: Current every day smoker Past Alcohol Use History: None Reported Past Drug Use History: None Reported - Past Family History Mother Family Medical History: Pulmonary Embolus Father Family Medical History: No Reported History Brother(s) Family Medical History: No Reported History Son(s) Additional Family Medical History / Comment(s): autistic Daughter(s) Additional Family Medical History / Comment(s): adhd/odd General Exam - General Exam Comments Initial Comments: General: The patient is awake and alert, in no distress, and does not appear acutely ill. Eye: +3 mm pupils are equal, round and reactive to light, extra-ocular movements are intact. No nystagmus. There is normal conjunctiva bilaterally. No signs of icterus. No photophobia Ears, nose, mouth and throat: There are moist mucous membranes and no oral lesions. Oropharynx was not erythematous there is no tonsillar enlargement exudates or lesions. Uvula midline. Tympanic membranes are not erythematous or is no effusions bulging or retraction. No tenderness to palpation of the mastoid. No anterior cervical lymphadenopathy. Rhinorrhea, clear and bilateral nares. No tripoding, no drooling. Neck: The neck is supple, there is no tenderness or JVD. No nuchal rigidity Cardiovascular: There is a regular rate and rhythm. No murmur, rub or gallop is appreciated. Respiratory: Lungs are clear to auscultation, respirations are non-labored, breath sounds are equal. No wheezes, stridor, rales, or rhonchi. No retractions or abdominal breathing. Gastrointestinal: Soft, non-distended, non-tender abdomen without masses or organomegaly noted. There is no rebound or guarding present. Bowel sounds are unremarkable. Musculoskeletal: Normal ROM, no tenderness. Strength 5/5. Sensation intact. Radial pulses equal bilaterally 2+. Neurological: A&O x 3. CN II-XII intact, There are no obvious motor or sensory deficits. Coordination appears grossly intact. Speech appears normal, no muffling. Skin: Skin is warm and dry and no rashes or lesions are noted. No extremity edema Psychiatric: Cooperative Limitations: no limitations Course Vital Signs 04/16/19 04/16/19 04/16/19 19:55 20:39 20:40 Temperature 98.5 F 98.8 F Pulse Rate 116 H 99 Respiratory 20 18 20 Rate Blood Pressure 140/94 130/74 O2 Sat by Pulse 95 99 Oximetry Medical Decision Making - Medical Decision Making 38 year female presenting for cough. Lungs clear to auscultation. Patient has obvious dry cough. Patient has positive sick contacts in household. Patient is afebrile. No chest pain or shortness of breath. Imaging studies reveal no acute cardiopulmonary process. No focal consolidations. Patient appears well vital signs within acceptable limits upon repeat. At this time I do feel patient has a viral upper respiratory infection and dysuria for discharge with symptomatic control. Patient is agreeable with this care plan as discharge appearing well Disposition Clinical Impression: Cough Disposition: HOME SELF-CARE Condition: Good Instructions (If sedation given, give patient instructions): Upper Respiratory Infection (ED) Additional Instructions: Please use medication as discussed. Please follow-up with family doctor in the next 2 days. Please return to emergency room if the symptoms increase or worsen or for any other concerns. Prescriptions: Benzonatate [Tessalon Perles] 100 mg PO TID PRN 7 Days #21 cap PRN Reason: Cough Is patient prescribed a controlled substance at d/c from ED?: No Referrals: None,Stated [Primary Care Provider] - 1-2 days [facility] [[facility]] - 1-2 days Time of Disposition: 20:34
--- NOTE | 2019-04-16 20:27 | XR ---
EXAMINATION TYPE: XR chest 2V DATE OF EXAM: 04/16/2019 COMPARISON: 02/20/2019 HISTORY: Cough and congestion TECHNIQUE: Frontal and lateral views of the chest are obtained. FINDINGS: Heart and mediastinum are normal. Lungs are clear. Diaphragm is normal. Bony thorax appear s normal. IMPRESSION: Normal chest. There is clearing of the minimal atelectasis left lower lobe compared to o ld exam.
[2019-04-16 20:40] VITALS: BP 130/74; PULSE 99; TEMP 98.8
[2019-04-16 20:42] VITALS: RESP 20
== END 2019-04-16 21:01 | disposition home or self-care (01) ==
LOC: EC 19:55
DX: J06.9 Acute upper respiratory infection, unspecified (principal); R30.0 Dysuria; K21.9 Gastro-esophageal reflux disease without esophagitis; M19.90 Unspecified osteoarthritis, unspecified site; F31.9 Bipolar disorder, unspecified; F41.9 Anxiety disorder, unspecified; F17.200 Nicotine dependence, unspecified, uncomplicated; Z79.1 Long term (current) use of non-steroidal anti-inflammatories (NSAID); Z79.899 Other long term (current) drug therapy; Z86.711 Personal history of pulmonary embolism; Z83.6 Family history of other diseases of the respiratory system; Z86.69 Personal history of other diseases of the nervous system and sense organs
CPT/HCPCS: 71046; 99283

== ENCOUNTER 2019-06-16 20:20 | Emergency (ER) | payer OTHER ==
[2019-06-16 20:34] VITALS: BP 147/90; PULSE 84; RESP 18; TEMP 98
[2019-06-16] MEDS ORDERED: predniSONE 20 MG TAB PO STA (20:57)
--- NOTE | 2019-06-16 20:58 | ED ---
General Adult HPI - General Chief complaint: Upper Respiratory Infection Stated complaint: Cough, Ear/Nose Pain Time Seen by Provider: 06/16/19 20:41 Source: patient Mode of arrival: ambulatory Limitations: no limitations - History of Present Illness Initial comments: Patient is a 38-year-old female presenting to emergency Department with chief complaint of upper respiratory symptoms. Patient reports she was recently diagnosed with bronchitis and prescribed antibiotics. Patient reports she finished a course of antibiotics minimal improvement in her symptoms. Patient reports the cough appears to be nonproductive and she only does it intermittently to clear her throat. Patient reports sinus congestion along with bilateral ear fullness. Patient does report slight sore throat. Patient denies any fevers night sweats or chills. Patient denies any shortness of breath, dyspnea on exertion or chest pain. Patient is a smoker but no asthma - Related Data Home Medications Medication Instructions Recorded Confirmed Cyclobenzaprine [Flexeril] 10 mg PO TID 05/18/17 02/21/19 Ranitidine HCl 150 mg PO HS 05/25/18 02/21/19 Folic Acid 1 mg PO DAILY 05/31/18 02/21/19 SUMAtriptan SUCCINATE [Imitrex] 100 mg PO BID PRN 05/31/18 02/21/19 Benztropine Mesylate [Cogentin] 1 mg PO DAILY PRN 01/07/19 02/21/19 Haloperidol [Haldol] 1 mg PO HS 01/07/19 02/21/19 Ibuprofen [Motrin] 800 mg PO TID 01/07/19 02/21/19 Lacosamide [Vimpat] 50 mg PO BID 01/07/19 02/21/19 Ondansetron HCl [Zofran] 8 mg PO BID PRN 01/07/19 02/21/19 LORazepam [Ativan] 2 tab PO Q8H PRN 02/20/19 02/21/19 Oxybutynin Chloride [Ditropan] 5 mg PO BID 02/20/19 02/21/19 Verapamil HCl [Verapamil ER] 180 mg PO DAILY 02/20/19 02/21/19 buPROPion XL [Wellbutrin XL] 300 mg PO DAILY 02/20/19 02/21/19 hydrOXYzine PAMOATE [Vistaril] 25 mg PO HS 02/20/19 02/21/19 metFORMIN HCL [Glucophage] 850 mg PO BID 02/20/19 02/21/19 traZODone HCL [Desyrel] 100 mg PO HS 02/20/19 02/21/19 Previous Rx's Medication Instructions Recorded Aspirin 81 mg PO DAILY #30 chew 02/22/19 Atorvastatin [Lipitor] 40 mg PO DAILY #30 tab 02/22/19 Benzonatate [Tessalon Perles] 100 mg PO TID PRN 7 Days #21 cap 04/16/19 Albuterol Inhaler [Ventolin Hfa 1 - 2 puff INHALATION RT-Q6H PRN 06/16/19 Inhaler] #1 inhaler methylPREDNISolone Dose Pack 4 mg PO DIRECTED #21 package 06/16/19 [Medrol Dose Pack] Allergies Allergy/AdvReac Type Severity Reaction Status Date / Time No Known Allergies Allergy Verified 06/16/19 20:34 Review of Systems ROS Statement: Those systems with pertinent positive or pertinent negative responses have been documented in the HPI. ROS Other: All systems not noted in ROS Statement are negative. 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, migraine History of Any Multi-Drug Resistant Organisms: None Reported Past Surgical History: Ablation, Section, Cholecystectomy, Uterine Ablation Additional Past Surgical History / Comment(s): Andreas filter, D&C, c-sect x 2 Past Anesthesia/Blood Transfusion Reactions: No Reported Reaction Past Psychological History: Anxiety, Bipolar, Depression, PTSD, Schizoaffective Disorder Smoking Status: Current every day smoker Past Alcohol Use History: None Reported Past Drug Use History: None Reported - Past Family History Mother Family Medical History: Pulmonary Embolus Father Family Medical History: No Reported History Brother(s) Family Medical History: No Reported History Son(s) Additional Family Medical History / Comment(s): autistic Daughter(s) Additional Family Medical History / Comment(s): adhd/odd General Exam Limitations: no limitations General appearance: alert, in no apparent distress, obese Head exam: Present: atraumatic, normocephalic, normal inspection Eye exam: Present: normal appearance, PERRL, EOMI. Absent: conjunctival inject ion Pupils: Present: normal accommodation ENT exam: Present: normal exam, normal oropharynx (Negative for all exam), mucous membranes moist, TM's normal bilaterally, normal external ear exam, other (No sinus tenderness) Neck exam: Present: normal inspection. Absent: tenderness, meningismus, lymphadenopathy Respiratory exam: Present: wheezes (Very mild bilateral wheezing) Cardiovascular Exam: Present: regular rate, normal rhythm, normal heart sounds Extremities exam: Present: normal inspection, full ROM Back exam: Present: normal inspection, full ROM Neurological exam: Present: alert, oriented X3 Psychiatric exam: Present: normal affect, normal mood Skin exam: Present: warm, intact, normal color Course Vital Signs 06/16/19 20:31 Temperature 98 F Pulse Rate 84 Respiratory 18 Rate Blood Pressure 147/90 O2 Sat by Pulse 96 Oximetry Medical Decision Making - Medical Decision Making Patient is a 38-year-old female presenting to the emergency department with a chief complaint of upper respiratory symptoms. Patient was initially diagnosed with bronchitis and underwent whole course of antibiotics with minimal improvement. Currently she reports sinus congestion along with bilateral ear fullness. Patient does report a small, nonproductive cough that appears only to clear her throat. Physical examination she is wheezing mildly bilateral lungs. I suspect this to be secondary to continue smoking along with bronchitis. I suspect the patient still continues to have bronchitis and the by antibiotics did not do anything about it. Patient has no fevers or chills. I have low suspicion for pneumonia. Patient given oral prednisone here and discharged with a Medrol Dosepak. Patient will also be discharged with an albuterol inhaler.I counseled the patient for smoking cessation for greater than 3 minutes. Strict return parameters were thoroughly discussed the patient was understanding and agreeable. Patient was to follow with primary care. Case discussed with physician. Disposition Clinical Impression: Upper respiratory infection Disposition: HOME SELF-CARE Condition: Stable Instructions (If sedation given, give patient instructions): Upper Respiratory Infection (ED) Additional Instructions: Please take prescribed medication as directed. Please follow with primary care. Please return to emergency department if symptoms worsen. Prescriptions: methylPREDNISolone Dose Pack [Medrol Dose Pack] 4 mg PO DIRECTED #21 package Albuterol Inhaler [Ventolin Hfa Inhaler] 1 - 2 puff INHALATION RT-Q6H PRN #1 inhaler PRN Reason: Wheezing Is patient prescribed a controlled substance at d/c from ED?: No Referrals: Juan Hernandez MD [Primary Care Provider] - 1-2 days Time of Disposition: 20:58
== END 2019-06-16 21:11 | disposition home or self-care (01) ==
LOC: EC 20:20
DX: J06.9 Acute upper respiratory infection, unspecified (principal); Z71.6 Tobacco abuse counseling; K21.9 Gastro-esophageal reflux disease without esophagitis; M19.90 Unspecified osteoarthritis, unspecified site; F31.9 Bipolar disorder, unspecified; F41.9 Anxiety disorder, unspecified; F17.200 Nicotine dependence, unspecified, uncomplicated; Z79.1 Long term (current) use of non-steroidal anti-inflammatories (NSAID); Z79.84 Long term (current) use of oral hypoglycemic drugs; Z79.899 Other long term (current) drug therapy; Z83.6 Family history of other diseases of the respiratory system
CPT/HCPCS: 99283; 99406; J7512

== ENCOUNTER 2019-06-25 21:42 | Emergency (ER) | payer OTHER ==
[2019-06-25 21:48] VITALS: RESP 18; TEMP 98.2
[2019-06-25 22:28] LABS: Appearance,Urine Cloudy (Clear); Bilirubin,Urine Negative (Negative); Blood,Urine Trace (Negative); Color,Urine Yellow; Glucose,Urine (UA) Negative (Negative); Ketones,Urine Negative (Negative); Leukocyte Esterase,Urine Trace (Negative); Mucus,Urine Rare /hpf; Nitrite,Urine Negative (Negative); PH, Urine 5.5 (5.0-8.0); Protein,Urine Negative (Negative); RBC,Urine 1 /hpf (0-5); Specific Gravity,Urine 1.019 (1.001-1.035); Squamous Epithelial Cell,Urine 10 /hpf (0-4); Urobilinogen,Urine <2.0 mg/dL (<2.0); WBC,Urine 3 /hpf (0-5)
--- NOTE | 2019-06-25 22:28 | ED ---
Abdominal Pain HPI - General Chief Complaint: Abdominal Pain Stated Complaint: Abd Pain Time Seen by Provider: 06/25/19 21:44 Source: patient Mode of arrival: EMS Limitations: no limitations - History of Present Illness Initial Comments: This patient is a 38-year-old woman who presents going on 2 days of right upper quadrant abdominal pain that she describes as constant, sharp, moderately severe. She noticed it when she was walking home from the hospital yesterday in the evening. She has not noted any worsening or relieving factors. No associated symptoms. Patient denies any change in urination. She states she may have a little bit of constipation. Her last bowel movement was this morning she states but only a tiny amount of hard stool. Prior to that was 3-4 days ago. No blood or dark tarry stools. Last menstrual period approximately 3 weeks ago and normal. No vaginal discharge. MD Complaint: abdominal pain Onset/Timin -: days(s) Location: RUQ Radiation: none Migration to: no migration Severity: moderate Quality: sharp Consistency: constant Improves With: nothing Worsens With: nothing Associated Symptoms: denies other symptoms - Related Data LMP (females 10-50): 3 weeks Patient : No Home Medications Medication Instructions Recorded Confirmed Cyclobenzaprine [Flexeril] 10 mg PO TID 05/18/17 06/25/19 SUMAtriptan SUCCINATE [Imitrex] 100 mg PO BID PRN 05/31/18 06/25/19 Benztropine Mesylate [Cogentin] 1 mg PO DAILY PRN 01/07/19 06/25/19 Haloperidol [Haldol] 2 mg PO HS 01/07/19 06/25/19 Ibuprofen [Motrin] 800 mg PO TID PRN 01/07/19 06/25/19 Lacosamide [Vimpat] 50 mg PO BID 01/07/19 06/25/19 Ondansetron HCl [Zofran] 8 mg PO BID PRN 01/07/19 06/25/19 metFORMIN HCL [Glucophage] 850 mg PO BID 02/20/19 06/25/19 traZODone HCL [Desyrel] 200 mg PO HS 02/20/19 06/25/19 Atorvastatin [Lipitor] 10 mg PO HS 06/25/19 06/25/19 Verapamil Sr [Isoptin Sr] 180 mg PO HS 06/25/19 06/25/19 buPROPion HCL [Wellbutrin XL] 300 mg PO DAILY 06/25/19 06/25/19 Previous Rx's Medication Instructions Recorded Albuterol Inhaler [Ventolin Hfa 1 - 2 puff INHALATION RT-Q6H PRN 06/16/19 Inhaler] #1 inhaler Dicyclomine [Bentyl] 20 mg PO QID #15 tablet 06/26/19 Dicyclomine [Bentyl] 20 mg PO QID #15 tablet 06/26/19 Allergies Allergy/AdvReac Type Severity Reaction Status Date / Time No Known Allergies Allergy Verified 06/25/19 22:31 Review of Systems ROS Statement: Those systems with pertinent positive or pertinent negative responses have been documented in the HPI. ROS Other: All systems not noted in ROS Statement are negative. Constitutional: Denies: fever, chills Respiratory: Denies: cough, dyspnea Cardiovascular: Denies: chest pain, palpitations, edema Gastrointestinal: Reports: abdominal pain, constipation. 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, migraine History of Any Multi-Drug Resistant Organisms: None Reported Past Surgical History: Ablation, Section, Cholecystectomy, Uterine Ablation Additional Past Surgical History / Comment(s): Andreas filter, D&C, c-sect x 2 Past Anesthesia/Blood Transfusion Reactions: No Reported Reaction Past Psychological History: Anxiety, Bipolar, Depression, PTSD, Schizoaffective Disorder Smoking Status: Current every day smoker Past Alcohol Use History: None Reported Past Drug Use History: None Reported - Past Family History Mother Family Medical History: Pulmonary Embolus Father Family Medical History: No Reported History Brother(s) Family Medical History: No Reported History Son(s) Additional Family Medical History / Comment(s): autistic Daughter(s) Additional Family Medical History / Comment(s): adhd/odd General Exam Limitations: no limitations General appearance: alert, in no apparent distress Head exam: Present: atraumatic, normocephalic Eye exam: Present: normal appearance. Absent: scleral icterus, conjunctival injection ENT exam: Present: normal oropharynx Neck exam: Present: normal inspection Respiratory exam: Present: normal lung sounds bilaterally. Absent: respiratory distress, wheezes, rales, rhonchi, stridor Cardiovascular Exam: Present: regular rate, normal rhythm, normal heart sounds. Absent: systolic murmur, diastolic murmur, rubs, gallop GI/Abdominal exam: Present: soft, tenderness, normal bowel sounds. Absent: distended, guarding, rebound, rigid, mass, pulsatile mass, hernia Extremities exam: Present: normal inspection, normal capillary refill. Absent: pedal edema, calf tenderness Back exam: Present: normal inspection. Absent: CVA tenderness (R), CVA tenderness (L) Neurological exam: Present: alert Skin exam: Present: warm, dry, intact, normal color. Absent: rash Course Vital Signs 06/25/19 21:44 Temperature 98.2 F Pulse Rate 94 Respiratory 18 Rate Blood Pressure 135/66 O2 Sat by Pulse 99 Oximetry Medical Decision Making - Lab Data Result diagrams: 06/25/19 22:23 06/25/19 22:23 Lab Results 06/25/19 06/25/19 06/25/19 Range/Units 21:52 21:52 22:23 WBC (3.8-10.6) k/uL RBC (3.80-5.40) m/uL Hgb (11.4-16.0) gm/dL Hct (34.0-46.0) % MCV (80.0-100.0) fL MCH (25.0-35.0) pg MCHC (31.0-37.0) g/dL RDW (11.5-15.5) % Plt Count (150-450) k/uL Neutrophils % % Lymphocytes % % Monocytes % % Eosinophils % % Basophils % % Neutrophils # (1.3-7.7) k/uL Lymphocytes # (1.0-4.8) k/uL Monocytes # (0-1.0) k/uL Eosinophils # (0-0.7) k/uL Basophils # (0-0.2) k/uL Sodium 140 (137-145) mmol/L Potassium 3.9 (3.5-5.1) mmol/L Chloride 105 (98-107) mmol/L Carbon Dioxide 28 (22-30) mmol/L Anion Gap 7 mmol/L BUN 14 (7-17) mg/dL Creatinine 0.94 (0.52-1.04) mg/dL Est GFR (CKD-EPI)AfAm 89 (>60 ml/min/1.73 sqM) Est GFR (CKD-EPI)NonAf 77 (>60 ml/min/1.73 sqM) Glucose 112 H (74-99) mg/dL Calcium 9.7 (8.4-10.2) mg/dL Total Bilirubin 0.3 (0.2-1.3) mg/dL AST 17 (14-36) U/L ALT 20 (9-52) U/L Alkaline Phosphatase 60 (38-126) U/L C-Reactive Protein 12.0 H (<10.0) mg/L Total Protein 6.9 (6.3-8.2) g/dL Albumin 4.1 (3.5-5.0) g/dL Amylase 40 (30-110) U/L Lipase 158 (23-300) U/L Urine Color Yellow Urine Appearance Cloudy H (Clear) Urine pH 5.5 (5.0-8.0) Ur Specific Barre 1.019 (1.001-1.035) Urine Protein Negative (Negative) Urine Glucose (UA) Negative (Negative) Urine Ketones Negative (Negative) Urine Blood Trace H (Negative) Urine Nitrite Negative (Negative) Urine Bilirubin Negative (Negative) Urine Urobilinogen <2.0 (<2.0) mg/dL Ur Leukocyte Esterase Trace H (Negative) Urine RBC 1 (0-5) /hpf Urine WBC 3 (0-5) /hpf Ur Squamous Epith Cells 10 H (0-4) /hpf Urine Mucus Rare H (None) /hpf Urine HCG, Qual Not Detected (Not Detectd) 06/25/19 Range/Units 22:23 WBC 6.5 (3.8-10.6) k/uL RBC 4.18 (3.80-5.40) m/uL Hgb 13.0 (11.4-16.0) gm/dL Hct 39.5 (34.0-46.0) % MCV 94.5 (80.0-100.0) fL MCH 31.0 (25.0-35.0) pg MCHC 32.8 (31.0-37.0) g/dL RDW 14.2 (11.5-15.5) % Plt Count 335 (150-450) k/uL Neutrophils % 62 % Lymphocytes % 27 % Monocytes % 5 % Eosinophils % 4 % Basophils % 1 % Neutrophils # 4.0 (1.3-7.7) k/uL Lymphocytes # 1.7 (1.0-4.8) k/uL Monocytes # 0.3 (0-1.0) k/uL Eosinophils # 0.3 (0-0.7) k/uL Basophils # 0.1 (0-0.2) k/uL Sodium (137-145) mmol/L Potassium (3.5-5.1) mmol/L Chloride (98-107) mmol/L Carbon Dioxide (22-30) mmol/L Anion Gap mmol/L BUN (7-17) mg/dL Creatinine (0.52-1.04) mg/dL Est GFR (CKD-EPI)AfAm (>60 ml/min/1.73 sqM) Est GFR (CKD-EPI)NonAf (>60 ml/min/1.73 sqM) Glucose (74-99) mg/dL Calcium (8.4-10.2) mg/dL Total Bilirubin (0.2-1.3) mg/dL AST (14-36) U/L ALT (9-52) U/L Alkaline Phosphatase (38-126) U/L C-Reactive Protein (<10.0) mg/L Total Protein (6.3-8.2) g/dL Albumin (3.5-5.0) g/dL Amylase (30-110) U/L Lipase (23-300) U/L Urine Color Urine Appearance (Clear) Urine pH (5.0-8.0) Ur Specific Barre (1.001-1.035) Urine Protein (Negative) Urine Glucose (UA) (Negative) Urine Ketones (Negative) Urine Blood (Negative) Urine Nitrite (Negative) Urine Bilirubin (Negative) Urine Urobilinogen (<2.0) mg/dL Ur Leukocyte Esterase (Negative) Urine RBC (0-5) /hpf Urine WBC (0-5) /hpf Ur Squamous Epith Cells (0-4) /hpf Urine Mucus (None) /hpf Urine HCG, Qual (Not Detectd) Disposition Clinical Impression: Abdominal pain Disposition: HOME SELF-CARE Condition: Good Instructions (If sedation given, give patient instructions): Abdominal Pain (ED) Prescriptions: Dicyclomine [Bentyl] 20 mg PO QID #15 tablet Dicyclomine [Bentyl] 20 mg PO QID #15 tablet Is patient prescribed a controlled substance at d/c from ED?: No Referrals: Juan Hernandez MD [Primary Care Provider] - 1-2 days
[2019-06-25 22:53] LABS: Basophils # (A) 0.1 k/uL (0-0.2); Basophils % (A) 1 %; Eosinophils # (A) 0.3 k/uL (0-0.7); Eosinophils % (A) 4 %; HCT 39.5 % (34.0-46.0); Lymphocytes # (A) 1.7 k/uL (1.0-4.8); Lymphocytes % (A) 27 %; MCHC 32.8 g/dL (31.0-37.0); MCV 94.5 fL (80.0-100.0); Mean Platelet Volume 5.5; Monocytes # (A) 0.3 k/uL (0-1.0); Monocytes % (A) 5 %; Neutrophils % (A) 62 %; Platelet Count 335 k/uL (150-450); RBC 4.18 m/uL (3.80-5.40); RDW 14.2 % (11.5-15.5); WBC 6.5 k/uL (3.8-10.6)
[2019-06-25 23:05] LABS: Albumin 4.1 g/dL (3.5-5.0); Calcium 9.7 mg/dL (8.4-10.2); Potassium 3.9 mmol/L (3.5-5.1); Total Bilirubin 0.3 mg/dL (0.2-1.3); Total Protein 6.9 g/dL (6.3-8.2)
--- NOTE | 2019-06-26 00:01 | CT ---
EXAMINATION TYPE: CT abdomen pelvis wo con DATE OF EXAM: 06/25/2019 COMPARISON: 09/23/2017 HISTORY: Patient presents with RUQ pain. CT DLP: 2494 mGycm Automated exposure control for dose reduction was used. TECHNIQUE: Helical acquisition of images was performed from the lung bases through the pelvis. FINDINGS: Lung bases are clear of consolidation. There is mild subsegmental atelectasis. There is small linear density in the lingula left upper lobe also consistent with subsegmental atelectasis. Heart size is n ormal. There is no pericardial effusion. There are clips from cholecystectomy. Liver and spleen appea r intact. The bile ducts are not dilated. There is no pancreatic mass. Stomach is large. There is no adrenal mass. Kidneys have normal size and contour. There is no hydronephrosis. Ureters a re not dilated. There is probably a 1 mm calculus lower pole left kidney. There is no retroperitoneal adenopathy. There is inferior vena cava filter. Bladder distends smoothly. Uterus is anteverted. There is no inguinal hernia. There is no free fluid in the pelvis. There is no mesenteric edema. There is no ascites or free air. The appendix appears no rmal. There is no sign of a bowel obstruction. Lumbar vertebra have fairly normal spacing and alignment. There is no compression fracture. Bony pelv is is intact. IMPRESSION: THERE IS MINIMAL SUBSEGMENTAL ATELECTASIS IN THE LOWER LUNG RIOJAS. NORMAL APPENDIX. I SEE NO SIGN OF ACUTE ABDOMEN AND PELVIS. ATELECTASIS IS NEW COMPARED TO OLD EXAM. STABLE TINY LEFT RENAL CALCULUS.
[2019-06-26] MEDS ORDERED: PEG 3350-NA SULF,BICARB,CL/KCL 4,000 ML BOTTLE PO ONE (00:29)
[2019-06-26 00:58] VITALS: BP 121/90; PULSE 81
== END 2019-06-26 00:58 | disposition home or self-care (01) ==
LOC: EC 21:42
DX: R10.11 Right upper quadrant pain (principal); Z32.02 Encounter for pregnancy test, result negative; F41.9 Anxiety disorder, unspecified; F31.9 Bipolar disorder, unspecified; F43.10 Post-traumatic stress disorder, unspecified; F25.9 Schizoaffective disorder, unspecified; F17.200 Nicotine dependence, unspecified, uncomplicated; Z79.899 Other long term (current) drug therapy; Z86.718 Personal history of other venous thrombosis and embolism
CPT/HCPCS: 36415; 74176; 80053; 81001; 81025; 82150; 83690; 85025; 86140; 99284

== ENCOUNTER 2019-07-24 00:12 | Emergency (ER) | payer OTHER ==
[2019-07-24 00:31] VITALS: BP 140/89; PULSE 90; RESP 18; TEMP 98.1
[2019-07-24] MEDS ORDERED: ACETAMINOPHEN TAB 325 MG TAB PO STA (00:53)
--- NOTE | 2019-07-24 01:02 | ED ---
General Adult HPI - General Chief complaint: Extremity Injury, Lower Stated complaint: R Leg Pain Time Seen by Provider: 07/24/19 00:35 Source: patient, family, RN notes reviewed, old records reviewed Mode of arrival: ambulatory Limitations: no limitations - History of Present Illness Initial comments: 38-year-old female patient presents a chief plan right knee pain. Patient reports that she has chronic right knee pain. Patient reports that for this she receives steroid injections every 3 months, the patient injections every 6 months. Patient reports that her knee has been bothering her for the last week. Reports that this illness caused her to fall. Denies any falls. Denies any fevers or chills, denies any other complaints. Systemic: Pt denies fatigue, fever/chills, rash. Pt denies weakness, night sweats, weight loss. Neuro: Pt denies headache, visual disturbances, syncope or pre-syncope. HEENT: Pt denies ocular discharge or irritation, otalgia, rhinorrhea, pharyngitis or notable lymphadenopathy. Cardiopulmonary: Pt denies chest pain, SOB, heart palpitations, dyspnea on exertion. Abdominal/GI: Pt denies abdominal pain, n/v/d. : Pt denies dysuria, burning w/ urination, frequency/urgency. Denies new onset urinary or bowel incontinence. MSK: Pt denies myalgia, loss of strength or function in extremities. Neuro: Pt denies new onset weakness, paresthesias. - Related Data Home Medications Medication Instructions Recorded Confirmed Cyclobenzaprine [Flexeril] 10 mg PO TID 05/18/17 06/25/19 SUMAtriptan SUCCINATE [Imitrex] 100 mg PO BID PRN 05/31/18 06/25/19 Benztropine Mesylate [Cogentin] 1 mg PO DAILY PRN 01/07/19 06/25/19 Haloperidol [Haldol] 2 mg PO HS 01/07/19 06/25/19 Ibuprofen [Motrin] 800 mg PO TID PRN 01/07/19 06/25/19 Lacosamide [Vimpat] 50 mg PO BID 01/07/19 06/25/19 Ondansetron HCl [Zofran] 8 mg PO BID PRN 01/07/19 06/25/19 metFORMIN HCL [Glucophage] 850 mg PO BID 02/20/19 06/25/19 traZODone HCL [Desyrel] 200 mg PO HS 02/20/19 06/25/19 Atorvastatin [Lipitor] 10 mg PO HS 06/25/19 06/25/19 Verapamil Sr [Isoptin Sr] 180 mg PO HS 06/25/19 06/25/19 buPROPion HCL [Wellbutrin XL] 300 mg PO DAILY 06/25/19 06/25/19 Previous Rx's Medication Instructions Recorded Albuterol Inhaler [Ventolin Hfa 1 - 2 puff INHALATION RT-Q6H PRN 06/16/19 Inhaler] #1 inhaler Dicyclomine [Bentyl] 20 mg PO QID #15 tablet 06/26/19 Dicyclomine [Bentyl] 20 mg PO QID #15 tablet 06/26/19 Allergies Allergy/AdvReac Type Severity Reaction Status Date / Time No Known Allergies Allergy Verified 07/24/19 00:31 Review of Systems ROS Statement: Those systems with pertinent positive or pertinent negative responses have been documented in the HPI. ROS Other: All systems not noted in ROS Statement are negative. 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, migraine History of Any Multi-Drug Resistant Organisms: None Reported Past Surgical History: Ablation, Section, Cholecystectomy, Uterine Ablation Additional Past Surgical History / Comment(s): Andreas filter, D&C, c-sect x 2 Past Anesthesia/Blood Transfusion Reactions: No Reported Reaction Past Psychological History: Anxiety, Bipolar, Depression, PTSD, Schizoaffective Disorder Smoking Status: Current every day smoker Past Alcohol Use History: None Reported Past Drug Use History: None Reported - Past Family History Mother Family Medical History: Pulmonary Embolus Father Family Medical History: No Reported History Brother(s) Family Medical History: No Reported History Son(s) Additional Family Medical History / Comment(s): autistic Daughter(s) Additional Family Medical History / Comment(s): adhd/odd General Exam - General Exam Comments Initial Comments: Constitutional: NAD, AOX3, Pt has pleasant affect. HEENT: NC/AT, trachea midline, neck supple, no lymphadenopathy. Posterior pharynx non erythematous, without exudates. External ears appear normal, without discharge. Mucous membranes moist. Eyes PERRLA, EOM intact. There is no scleral icterus. No pallor noted. Cardiopulmonary: RRR, no murmurs, rubs or gallops, no JVD noted. Lungs CTAB in anterior and posterior zepeda. No peripheral edema. Abdominal exam: Abdomen soft and non-distended. Abdomen non-tender to palpation in all 4 quadrants. Bowel sounds active in LLQ. No hepatosplenomegaly. No ecchymosis Neuro: CN II-XII grossly intact. No nuchal rigidity. No raccon eyes, no cartagena sign, no hemotympanum. No cervical spinal tenderness. MSK: Full active range of motion of right knee. Nontender to palpation. No skin changes. Distal pulses intact and equal.No posterior calf tenderness bilaterally, homans sign negative bilaterally. Posterior tibialis and radial pulse +2 bilaterally. Sensation intact in upper and lower extremities. Full active ROM in upper and lower extremities, 5/5 stregnth. Limitations: no limitations Course Vital Signs 07/24/19 00:28 Temperature 98.1 F Pulse Rate 90 Respiratory 18 Rate Blood Pressure 140/89 O2 Sat by Pulse 97 Oximetry Medical Decision Making - Medical Decision Making 80-year-old female patient presents to ED chief complaint of chronic right knee pain. Patient jessica has been causing issues for years. Reports that has been bothering her for the last week. Denies any acute injury or trauma. Denies any other complaints. Patient vital signs stable, afebrile. Physical exam did not display acute pathology or knee. Patient is ambulatory. Plain films negative. Patient will be discharged to follow up with primary care provider and instructional support specialist will return to ER if condition worsens. Case discussed with Dr. Amin. Disposition Clinical Impression: Knee pain, Chronic knee pain Disposition: HOME SELF-CARE Condition: Stable Instructions (If sedation given, give patient instructions): Knee Sprain (ED) Additional Instructions: follow-up with primary care provider orthopedic consult tomorrow. Return to ER if condition worsens in any way. Is patient prescribed a controlled substance at d/c from ED?: No Referrals: Juan Hernandez MD [Primary Care Provider] - 1-2 days
--- NOTE | 2019-07-24 01:13 | XR ---
EXAMINATION TYPE: XR knee 4V RT DATE OF EXAM: 07/24/2019 COMPARISON: NONE HISTORY: Knee pain TECHNIQUE: 4 views FINDINGS: I see no fracture nor dislocation. Joint spaces are normal. There is no sign of knee joint effusion. IMPRESSION: Negative right knee exam.
== END 2019-07-24 02:09 | disposition home or self-care (01) ==
LOC: EC 00:12
DX: M25.561 Pain in right knee (principal); G89.29 Other chronic pain; K21.9 Gastro-esophageal reflux disease without esophagitis; M19.90 Unspecified osteoarthritis, unspecified site; F31.9 Bipolar disorder, unspecified; F41.9 Anxiety disorder, unspecified; F25.9 Schizoaffective disorder, unspecified; F17.200 Nicotine dependence, unspecified, uncomplicated; Z79.1 Long term (current) use of non-steroidal anti-inflammatories (NSAID); Z79.84 Long term (current) use of oral hypoglycemic drugs; Z79.899 Other long term (current) drug therapy
CPT/HCPCS: 99284

== ENCOUNTER 2019-08-08 19:57 | Emergency (ER) | payer OTHER ==
[2019-08-08 20:07] VITALS: TEMP 97.6
[2019-08-08] MEDS ORDERED: diphenhydrAMINE 50 MG/ML 1 ML VIAL IVP STA (20:14)
[2019-08-08] MEDS ORDERED: METOCLOPRAMIDE 5 MG/ML 2 ML VIAL IVP STA (20:14)
[2019-08-08] MEDS ORDERED: ORPHENADRINE 30 MG/ML 2 ML VIAL IVP STA (20:14)
[2019-08-08] MEDS ORDERED: KETOROLAC 30 MG/ML 1 ML VIAL IVP STA (20:14)
[2019-08-08] MEDS ORDERED: SODIUM CHLORIDE 0.9% 500 ML 500 ML IV ONE (20:15)
[2019-08-08] MEDS ORDERED: DIAZEPAM 5 MG/ML 2 ML INJ IVP STA (21:04)
--- NOTE | 2019-08-08 21:07 | ED ---
Headache HPI - General Chief Complaint: Headache Stated Complaint: Migraine Time Seen by Provider: 08/08/19 19:59 Source: patient, RN notes reviewed Mode of arrival: EMS Limitations: no limitations - History of Present Illness Initial Comments: This a 38-year-old female [facility] emergency Department chief complaint headache. Patient states that she has chronic headaches this feels different than her typical headache that they're worse headache of her life. She states is just different in location. She states that she feels some pressure. She also has neck issues in which she is having some symptoms radiating down her right arm denies any chest pain or shortness breath no fevers or chills. Patient has no focal weakness. Patient states that she otherwise feels her normal self. Patient currently sees Dr. Devries. - Related Data Home Medications Medication Instructions Recorded Confirmed Cyclobenzaprine [Flexeril] 10 mg PO TID 05/18/17 06/25/19 SUMAtriptan SUCCINATE [Imitrex] 100 mg PO BID PRN 05/31/18 06/25/19 Benztropine Mesylate [Cogentin] 1 mg PO DAILY PRN 01/07/19 06/25/19 Haloperidol [Haldol] 2 mg PO HS 01/07/19 06/25/19 Ibuprofen [Motrin] 800 mg PO TID PRN 01/07/19 06/25/19 Lacosamide [Vimpat] 50 mg PO BID 01/07/19 06/25/19 Ondansetron HCl [Zofran] 8 mg PO BID PRN 01/07/19 06/25/19 metFORMIN HCL [Glucophage] 850 mg PO BID 02/20/19 06/25/19 traZODone HCL [Desyrel] 200 mg PO HS 02/20/19 06/25/19 Atorvastatin [Lipitor] 10 mg PO HS 06/25/19 06/25/19 Verapamil Sr [Isoptin Sr] 180 mg PO HS 06/25/19 06/25/19 buPROPion HCL [Wellbutrin XL] 300 mg PO DAILY 06/25/19 06/25/19 Previous Rx's Medication Instructions Recorded Albuterol Inhaler [Ventolin Hfa 1 - 2 puff INHALATION RT-Q6H PRN 06/16/19 Inhaler] #1 inhaler Dicyclomine [Bentyl] 20 mg PO QID #15 tablet 06/26/19 Dicyclomine [Bentyl] 20 mg PO QID #15 tablet 06/26/19 Allergies Allergy/AdvReac Type Severity Reaction Status Date / Time No Known Allergies Allergy Verified 07/24/19 00:31 Review of Systems ROS Statement: Those systems with pertinent positive or pertinent negative responses have been documented in the HPI. ROS Other: All systems not noted in ROS Statement are negative. 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, migraine History of Any Multi-Drug Resistant Organisms: None Reported Past Surgical History: Ablation, Section, Cholecystectomy, Uterine Ablation Additional Past Surgical History / Comment(s): Andreas filter, D&C, c-sect x 2 Past Anesthesia/Blood Transfusion Reactions: No Reported Reaction Past Psychological History: Anxiety, Bipolar, Depression, PTSD, Schizoaffective Disorder Smoking Status: Current every day smoker Past Alcohol Use History: None Reported Past Drug Use History: Marijuana - Past Family History Mother Family Medical History: Pulmonary Embolus Father Family Medical History: No Reported History Brother(s) Family Medical History: No Reported History Son(s) Additional Family Medical History / Comment(s): autistic Daughter(s) Additional Family Medical History / Comment(s): adhd/odd General Exam Limitations: no limitations General appearance: alert, in no apparent distress Head exam: Present: atraumatic, normocephalic, normal inspection Eye exam: Present: normal appearance, PERRL, EOMI. Absent: scleral icterus, conjunctival injection, periorbital swelling ENT exam: Present: normal exam, normal oropharynx, mucous membranes moist, TM's normal bilaterally Neck exam: Present: normal inspection, full ROM. Absent: tenderness, meningismus, lymphadenopathy Respiratory exam: Present: normal lung sounds bilaterally. Absent: respiratory distress, wheezes, rales, rhonchi, stridor Cardiovascular Exam: Present: regular rate, normal rhythm, normal heart sounds. Absent: systolic murmur, diastolic murmur, rubs, gallop, clicks Extremities exam: Present: other (Upper and lower extremity equal strength and f ull range of motion) Neurological exam: Present: alert, oriented X3, CN II-XII intact, reflexes normal, other (Finger to nose intact bilaterally). Absent: motor sensory defic it Course Vital Signs 08/08/19 08/08/19 20:03 21:31 Temperature 97.6 F Pulse Rate 75 74 Respiratory 20 18 Rate Blood Pressure 154/90 145/88 O2 Sat by Pulse 96 98 Oximetry - Reevaluation(s) Reevaluation #1: 08/08/19 21:49 Patient reevaluated patient resting comfortably states her headache is resolved. Medical Decision Making - Medical Decision Making Patient presented for migraine type headache. Patient was given migraine cocktail and all symptoms have resolved and she is neurologically intact. Patient be discharged return parameters were discussed. Disposition Clinical Impression: Migraine headache Disposition: HOME SELF-CARE Condition: Stable Instructions (If sedation given, give patient instructions): Acute Headache (ED) Additional Instructions: Please return to the Emergency Department if symptoms worsen or any other concerns. Is patient prescribed a controlled substance at d/c from ED?: No Referrals: Juan Hernandez MD [Primary Care Provider] - 1-2 days Time of Disposition: 21:49
[2019-08-08 21:32] VITALS: BP 145/88; PULSE 74; RESP 18
== END 2019-08-08 21:57 | disposition home or self-care (01) ==
LOC: EC 19:57
DX: G43.909 Migraine, unspecified, not intractable, without status migrainosus (principal); F25.9 Schizoaffective disorder, unspecified; F41.9 Anxiety disorder, unspecified; F31.9 Bipolar disorder, unspecified; G62.9 Polyneuropathy, unspecified; M19.90 Unspecified osteoarthritis, unspecified site; F17.200 Nicotine dependence, unspecified, uncomplicated; Z79.899 Other long term (current) drug therapy; Z86.711 Personal history of pulmonary embolism; Z86.718 Personal history of other venous thrombosis and embolism
CPT/HCPCS: 96374; 96375 ×4; 99283; J1200; J2360; J2765; J3360; J1885

== ENCOUNTER 2019-10-18 09:16 | Emergency (ER) | payer OTHER ==
[2019-10-18] MEDS ORDERED: HYDROmorphone 0.5 MG/0.5 ML SYRINGE IVP STA (09:45)
[2019-10-18] MEDS ORDERED: KETOROLAC 30 MG/ML 1 ML VIAL IVP STA (09:46)
[2019-10-18] MEDS ORDERED: diphenhydrAMINE 50 MG/ML 1 ML VIAL IVP STA (09:46)
[2019-10-18] MEDS ORDERED: SODIUM CHLORIDE 0.9% 500 ML 500 ML IV ONE (09:46)
[2019-10-18] MEDS ORDERED: DIAZEPAM 2 MG TAB PO STA (09:46)
[2019-10-18] MEDS ORDERED: ONDANSETRON 4 MG/2 ML VIAL IVP STA (09:46)
--- NOTE | 2019-10-18 10:36 | ED ---
Headache HPI - General Chief Complaint: Headache Stated Complaint: Migraine Time Seen by Provider: 10/18/19 09:33 Mode of arrival: ambulatory Limitations: no limitations - History of Present Illness Initial Comments: 38-year-old female history of migraines with outpatient neurology follow-up with recent MRI within the past 2 months presenting to the emergency department today for chief complaint of headache she states she has had on-and-off headaches are more persistent for the past 3 weeks. Patient states her Imitrex this as he knew working. Patient states she feels like she has tension in her neck denies stiffness falls or injury. Denies fevers. Patient denies any visual changes diplopia because of the upper or lower extremity speech changes sensation deficits paresthesias. Patient denies any chest pain shortness of breath nausea vomiting diarrhea or any other complaints at this time. Patient states it is a pressure-like pain in the head. She states is bandlike. Remaining review of systems negative upon arrival patient appears well no signs of acute distress. Patient has an upcoming appointment with her neurologist in 3 days. Upon arrival patient appears in no distress. - Related Data Home Medications Medication Instructions Recorded Confirmed Cyclobenzaprine [Flexeril] 10 mg PO TID 05/18/17 06/25/19 SUMAtriptan SUCCINATE [Imitrex] 100 mg PO BID PRN 05/31/18 06/25/19 Benztropine Mesylate [Cogentin] 1 mg PO DAILY PRN 01/07/19 06/25/19 Haloperidol [Haldol] 2 mg PO HS 01/07/19 06/25/19 Ibuprofen [Motrin] 800 mg PO TID PRN 01/07/19 06/25/19 Lacosamide [Vimpat] 50 mg PO BID 01/07/19 06/25/19 Ondansetron HCl [Zofran] 8 mg PO BID PRN 01/07/19 06/25/19 metFORMIN HCL [Glucophage] 850 mg PO BID 02/20/19 06/25/19 traZODone HCL [Desyrel] 200 mg PO HS 02/20/19 06/25/19 Atorvastatin [Lipitor] 10 mg PO HS 06/25/19 06/25/19 Verapamil Sr [Isoptin Sr] 180 mg PO HS 06/25/19 06/25/19 buPROPion HCL [Wellbutrin XL] 300 mg PO DAILY 06/25/19 06/25/19 Previous Rx's Medication Instructions Recorded Albuterol Inhaler [Ventolin Hfa 1 - 2 puff INHALATION RT-Q6H PRN 06/16/19 Inhaler] #1 inhaler Dicyclomine [Bentyl] 20 mg PO QID #15 tablet 06/26/19 Dicyclomine [Bentyl] 20 mg PO QID #15 tablet 06/26/19 Allergies Allergy/AdvReac Type Severity Reaction Status Date / Time No Known Allergies Allergy Verified 07/24/19 00:31 Review of Systems ROS Statement: Those systems with pertinent positive or pertinent negative responses have been documented in the HPI. ROS Other: All systems not noted in ROS Statement are negative. 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, migraine History of Any Multi-Drug Resistant Organisms: None Reported Past Surgical History: Ablation, Section, Cholecystectomy, Uterine Ablation Additional Past Surgical History / Comment(s): Andreas filter, D&C, c-sect x 2 Past Anesthesia/Blood Transfusion Reactions: No Reported Reaction Past Psychological History: Anxiety, Bipolar, Depression, PTSD, Schizoaffective Disorder Smoking Status: Current every day smoker Past Alcohol Use History: None Reported Past Drug Use History: Marijuana - Past Family History Mother Family Medical History: Pulmonary Embolus Father Family Medical History: No Reported History Brother(s) Family Medical History: No Reported History Son(s) Additional Family Medical History / Comment(s): autistic Daughter(s) Additional Family Medical History / Comment(s): adhd/odd General Exam - General Exam Comments Initial Comments: General: The patient is awake and alert, in no distress, and does not appear acutely ill. Eye: Pupils are equal, round and reactive to light, extra-ocular movements are intact. No nystagmus. There is normal conjunctiva bilaterally. No signs of icterus. Ears, nose, mouth and throat: There are moist mucous membranes and no oral lesions. Neck: The neck is supple, there is no tenderness or JVD. Cardiovascular: There is a regular rate and rhythm. No murmur, rub or gallop is appreciated. Respiratory: Lungs are clear to auscultation, respirations are non-labored, breath sounds are equal. No wheezes, stridor, rales, or rhonchi. Gastrointestinal: [Soft, non-distended, non-tender abdomen without masses or organomegaly noted. There is no rebound or guarding present. No CVA tenderness. Bowel sounds are unremarkable.] Musculoskeletal: Normal ROM, no tenderness. Strength 5/5. Sensation intact. Pulses equal bilaterally 2+. Neurological: A&O x 3. CN II-XII intact, memory intact to immediately, intermediate and machine long goods helper recall. Able to follow simple verbal. Able to name a common object (pen). High quality, labial (pa) and lingual (la) speech. Low quality posterior pharynx/larynx (ga) voice sounds. Able to express general knowledge (days in a week). No hemineglect or inattention noted. Finger agnosia (-) and spatially oriented (identified L index finger touched R shoulder with L index finger). Cranial Nerves- CN I: Sense of smell bilaterally. CN II: Near vision with [place] card [] All four quadrants for visual field testing equal to that of the examiner by confrontation bilaterally. Limited retinal views due to no dilation no sings of obvious papilledema. CN III, IV, : (-) Ptosis. Pupils are 3 mm and round bilaterally. Direct response and accommodation present b/l. Full EOM b/l. CN V: Corneal reflex and response to nasal tickle present. CN VII: Muscles of facial expression are symmetrical with smiling, closing eyes, furrowing eyebrows, and able to puff out cheeks. CN VIII: Finger rub heard b/l @ ~[]ft. CN IX, X: Symmetrical rise of the palate/uvula with high quality phonation. Coordinated swallow. CN XI: Sternocleidomastoid, trapezius muscle s trength 5/5 bilaterally. CN XII: Tongue symmetrical upon protrusion, without atrophy and fasciculations. Light touch and temperature sensation present over the face, chest, abdomen, back, UE bilaterally, and LE bilaterally. Able to localize point during point localization b/l and extinction. No visible bulk atrophy, hypertrophy, fasciculations, or myoclonus of the UE or LE b/l. Full PROM in UE and LE b/l. Bilateral muscle strength 5/5 for the following muscles: deltoid, biceps, triceps, brachioradialis, wrist extensors/flexor, hip flexor, hip abductors/adductors, hamstrings, quadriceps, feet dorsiflexors/plantar flexors. Finger to nose, finger to the examiners finger, and heel to garcia coordinated and accurate b/l. Coordinated and even demonstration of hand flip, finger to thumb, and toe tap b/l. (-) Babinski. +2 brachioradialis, triceps, patellar, and Achilles DTR b/l. (-) primitive reflexes. Gait is coordinated and even in stride with tandem, toe and heel walk. Maintains balance with monopedal stance. (-) Romberg. (-) pronator drift. No nuchal rigidity. (-) Brudzinskis and Kernig signs. Skin: Skin is warm and dry and no rashes or lesions are noted. Psychiatric: Cooperative, appropriate mood & affect, normal judgment. Limitations: no limitations Course Vital Signs 10/18/19 10/18/19 09:28 11:10 Temperature 98.2 F 98.6 F Pulse Rate 90 69 Respiratory 19 16 Rate Blood Pressure 138/92 142/66 O2 Sat by Pulse 97 98 Oximetry - Reevaluation(s) Reevaluation #1: Patient states she is feeling 100% better. She states she has no current symptoms she states she is thankful and feels that this most likely was due to life stressors she was discussing this with her . Patient states she is ready for discharge with outpatient follow-up on 10/18/19 10:50 Medical Decision Making - Medical Decision Making 38-year-old female history of chronic migraines presenting for headache. No focal neurological deficits patient appears well besides acute distress patient and I discussed imaging studies were sent back treatment. Patient went to move fourth symptomatic treatment versus imaging study stating that she feels this could be due to stress. After reevaluation patient states she is feeling 100% better. She is agreeable to discharge at this time with follow-up on with her neurologist. Discussed case attending provider Dr. Pool was agreeable this care plan and discharge at this time. Disposition Clinical Impression: Headache Disposition: HOME SELF-CARE Condition: Good Instructions (If sedation given, give patient instructions): Acute Headache (ED) Additional Instructions: Please use medication as discussed. Please follow-up with family doctor in the next 2 days, Dr. Devries on 10/21 as scheduled. Please return to emergency room if the symptoms increase or worsen or for any other concerns. Is patient prescribed a controlled substance at d/c from ED?: No Referrals: Juan Hernandez MD [Primary Care Provider] - 1-2 days Jaime Devries MD [Medical Doctor] - 1-2 days Time of Disposition: 10:56
[2019-10-18 11:11] VITALS: BP 142/66; PULSE 69; RESP 16; TEMP 98.6
== END 2019-10-18 11:10 | disposition home or self-care (01) ==
LOC: EC 09:16
DX: R51 Headache (principal); K21.9 Gastro-esophageal reflux disease without esophagitis; M19.90 Unspecified osteoarthritis, unspecified site; F31.9 Bipolar disorder, unspecified; F25.9 Schizoaffective disorder, unspecified; F17.200 Nicotine dependence, unspecified, uncomplicated; Z79.1 Long term (current) use of non-steroidal anti-inflammatories (NSAID); Z79.84 Long term (current) use of oral hypoglycemic drugs; Z79.899 Other long term (current) drug therapy; Z86.69 Personal history of other diseases of the nervous system and sense organs
CPT/HCPCS: 99283; 96374; 96375 ×3; J1200; J2405; J1885; J1170

== ENCOUNTER 2019-10-29 10:46 | Emergency (ER) | payer OTHER ==
--- NOTE | 2019-10-29 11:34 | XR ---
EXAMINATION TYPE: XR chest 2V DATE OF EXAM: 10/29/2019 COMPARISON: 04/16/2019 HISTORY: Cough TECHNIQUE: Frontal and lateral views of the chest are obtained. FINDINGS: There is no focal air space opacity, pleural effusion, or pneumothorax seen. The cardiac silhouette size is within normal limits. The osseous structures are intact. Minimal degenerative ch roberta of the thoracic spine. IMPRESSION: No acute cardiopulmonary process.
--- NOTE | 2019-10-29 11:44 | ED ---
URI HPI - General Chief Complaint: Upper Respiratory Infection Stated Complaint: cough, SOB Time Seen by Provider: 10/29/19 10:54 Source: patient Mode of arrival: ambulatory Limitations: no limitations - History of Present Illness Initial Comments: 38-year-old female presenting for cough congestion. Patient states she has had cough congestion for the past 23 days. She states that sometimes she coughs so hard she is short of breath patient denies shortness of breath at rest denies orthopnea. Patient denies any leg swelling and hemoptysis chest pressure or pain with deep inspiration. Patient states she has nasal congestion and a slight sore throat. Patient denies any headache neck stiffness or photophobia. Patient denies any nausea vomiting or diarrhea. Patient has no other complaints and upon arrival she appears well signs of acute distress patient was concerned she may have bronchitis. - Related Data Home Medications Medication Instructions Recorded Confirmed Cyclobenzaprine [Flexeril] 10 mg PO TID 05/18/17 06/25/19 SUMAtriptan SUCCINATE [Imitrex] 100 mg PO BID PRN 05/31/18 06/25/19 Benztropine Mesylate [Cogentin] 1 mg PO DAILY PRN 01/07/19 06/25/19 Haloperidol [Haldol] 2 mg PO HS 01/07/19 06/25/19 Ibuprofen [Motrin] 800 mg PO TID PRN 01/07/19 06/25/19 Lacosamide [Vimpat] 50 mg PO BID 01/07/19 06/25/19 Ondansetron HCl [Zofran] 8 mg PO BID PRN 01/07/19 06/25/19 metFORMIN HCL [Glucophage] 850 mg PO BID 02/20/19 06/25/19 traZODone HCL [Desyrel] 200 mg PO HS 02/20/19 06/25/19 Atorvastatin [Lipitor] 10 mg PO HS 06/25/19 06/25/19 Verapamil Sr [Isoptin Sr] 180 mg PO HS 06/25/19 06/25/19 buPROPion HCL [Wellbutrin XL] 300 mg PO DAILY 06/25/19 06/25/19 Previous Rx's Medication Instructions Recorded Albuterol Inhaler [Ventolin Hfa 1 - 2 puff INHALATION RT-Q6H PRN 06/16/19 Inhaler] #1 inhaler Dicyclomine [Bentyl] 20 mg PO QID #15 tablet 06/26/19 Dicyclomine [Bentyl] 20 mg PO QID #15 tablet 06/26/19 Albuterol Inhaler [Ventolin Hfa 1 - 2 puff INHALATION RT-Q6H PRN 7 10/29/19 Inhaler] Days #1 inhaler predniSONE [Deltasone] 40 mg PO DAILY 5 Days #10 tab 10/29/19 Allergies Allergy/AdvReac Type Severity Reaction Status Date / Time No Known Allergies Allergy Verified 10/29/19 10:50 Review of Systems ROS Statement: Those systems with pertinent positive or pertinent negative responses have been documented in the HPI. ROS Other: All systems not noted in ROS Statement are negative. 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, migraine History of Any Multi-Drug Resistant Organisms: None Reported Past Surgical History: Ablation, Section, Cholecystectomy, Uterine Ablation Additional Past Surgical History / Comment(s): [place] filter, D&C, c-sect x 2 Past Anesthesia/Blood Transfusion Reactions: No Reported Reaction Past Psychological History: Anxiety, Bipolar, Depression, PTSD, Schizoaffective Disorder Smoking Status: Current every day smoker Past Alcohol Use History: None Reported Past Drug Use History: Marijuana - Past Family History Mother Family Medical History: Pulmonary Embolus Father Family Medical History: No Reported History Brother(s) Family Medical History: No Reported History Son(s) Additional Family Medical History / Comment(s): autistic Daughter(s) Additional Family Medical History / Comment(s): adhd/odd General Exam - General Exam Comments Initial Comments: General: The patient is awake and alert, in no distress, and does not appear acutely ill. Eye: +3 mm pupils are equal, round and reactive to light, extra-ocular movements are intact. No nystagmus. There is normal conjunctiva bilaterally. No signs of icterus. No photophobia Ears, nose, mouth and throat: There are moist mucous membranes and no oral lesions. Oropharynx was not erythematous there is no tonsillar enlargement exudates or lesions. Uvula midline. Tympanic membranes are not erythematous or is no effusions bulging or retraction. No tenderness to palpation of the mastoid. No anterior cervical lymphadenopathy. Rhinorrhea, clear and bilateral nares. No tripoding, no drooling. Neck: The neck is supple, there is no tenderness or JVD. No nuchal rigidity negative Brudzinski and Kernig Cardiovascular: There is a regular rate and rhythm. No murmur, rub or gallop is appreciated. Respiratory: Lungs are clear to auscultation, respirations are non-labored, breath sounds are equal. No wheezes, stridor, rales, or rhonchi. No retractions or abdominal breathing. Gastrointestinal: Soft, non-distended, non-tender abdomen without masses or organomegaly noted. There is no rebound or guarding present. Bowel sounds are unremarkable. Musculoskeletal: Normal ROM, no tenderness. Strength 5/5. Sensation intact. Radial pulses equal bilaterally 2+. Neurological: A&O x 3. CN II-XII intact, There are no obvious motor or sensory deficits. Coordination appears grossly intact. Speech appears normal, no muffling. Skin: Skin is warm and dry and no rashes or lesions are noted. No extremity edema Psychiatric: Cooperative Limitations: no limitations Course Vital Signs 10/29/19 10/29/19 10:48 12:02 Temperature 97.5 F L 97.6 F Pulse Rate 83 72 Respiratory 20 18 Rate Blood Pressure 156/99 141/96 O2 Sat by Pulse 99 98 Oximetry Medical Decision Making - Medical Decision Making 38-year-old female presents today for chief complaint of cough congestion. Lungs clear chest x-ray clear of focal infiltrates. Patient's influenza testing negative. At this time I'll treat patient symptomatically for bronchitis of ecchymosis most likely diagnosis. At this time patient is agreeable to discharge I recommended outpatient follow-up and return parameters as discussed patient was discharged appearing well - Lab Data Lab Results 10/29/19 Range/Units 11:10 Influenza Type A RNA Not Detected (Not Detectd) Influenza Type B (PCR) Not Detected (Not Detectd) Disposition Clinical Impression: Cough, Congestion of nasal sinus Disposition: HOME SELF-CARE Condition: Good Instructions (If sedation given, give patient instructions): Upper Respiratory Infection (ED), Acute Bronchitis (ED) Additional Instructions: Please use medication as discussed. Please follow-up with family doctor in the next 2 days. Please return to emergency room if the symptoms increase or worsen or for any other concerns. Prescriptions: predniSONE [Deltasone] 40 mg PO DAILY 5 Days #10 tab Albuterol Inhaler [Ventolin Hfa Inhaler] 1 - 2 puff INHALATION RT-Q6H PRN 7 Days #1 inhaler PRN Reason: Wheezing Is patient prescribed a controlled substance at d/c from ED?: No Referrals: Juan Hernandez MD [Primary Care Provider] - 1-2 days Time of Disposition: 11:43
[2019-10-29 12:03] VITALS: BP 141/96; PULSE 72; RESP 18; TEMP 97.6
== END 2019-10-29 12:03 | disposition home or self-care (01) ==
LOC: EC 10:46
DX: R05 Cough (principal); R09.81 Nasal congestion; F41.9 Anxiety disorder, unspecified; F31.9 Bipolar disorder, unspecified; F25.9 Schizoaffective disorder, unspecified; F17.200 Nicotine dependence, unspecified, uncomplicated; Z79.84 Long term (current) use of oral hypoglycemic drugs; Z79.899 Other long term (current) drug therapy; Z86.718 Personal history of other venous thrombosis and embolism; Z86.711 Personal history of pulmonary embolism
CPT/HCPCS: 71046; 87502; 99283

== ENCOUNTER → 2020-05-03 | Outpatient (CLI) | payer OTHER | END | disposition home or self-care (01) | LOC: LABWHC1 12:35 | PROVIDERS: ATTEND Obstetrics & Gynecology | DX: N92.6 Irregular menstruation, unspecified (principal) | CPT/HCPCS: 36415; 84702 ==

== ENCOUNTER 2020-05-12 12:11 | Emergency (ER) | payer OTHER ==
[2020-05-12 12:16] VITALS: BP 117/76; PULSE 83; RESP 20; TEMP 98.5
[2020-05-12] MEDS ORDERED: ACET/COD 300 MG/30 MG STARTER PACK 6 TAB BTL PO STA (12:30)
[2020-05-12] MEDS ORDERED: KETOROLAC 15 MG/ML 1 ML VIAL IM STA (12:30)
--- NOTE | 2020-05-12 12:31 | ED ---
General Adult HPI - General Chief complaint: Back Pain/Injury Stated complaint: back pain Time Seen by Provider: 05/12/20 12:21 Source: patient, RN notes reviewed, old records reviewed Mode of arrival: ambulatory Limitations: no limitations - History of Present Illness Initial comments: 39-year-old female patient presents to ED for evaluation of left her lumbar back strain. Patient reports that she was moving some boxes and feels that she has a muscular strain. She denies any radiculopathy numbness and tingling lower extremity weakness loss of bowel or bladder control. Denies any falls or trauma. Systemic: Pt denies fatigue, fever/chills, rash. Pt denies weakness, night sweats, weight loss. Neuro: Pt denies headache, visual disturbances, syncope or pre-syncope. HEENT: Pt denies ocular discharge or irritation, otalgia, rhinorrhea, pharyngitis or notable lymphadenopathy. Cardiopulmonary: Pt denies chest pain, SOB, heart palpitations, dyspnea on exertion. Abdominal/GI: Pt denies abdominal pain, n/v/d. : Pt denies dysuria, burning w/ urination, frequency/urgency. Denies new onset urinary or bowel incontinence. MSK: Pt denies loss of strength or function in extremities. Neuro: Pt denies new onset weakness, paresthesias. - Related Data Home Medications Medication Instructions Recorded Confirmed Cyclobenzaprine [Flexeril] 10 mg PO TID 05/18/17 06/25/19 SUMAtriptan SUCCINATE [Imitrex] 100 mg PO BID PRN 05/31/18 06/25/19 Benztropine Mesylate [Cogentin] 1 mg PO DAILY PRN 01/07/19 06/25/19 Ibuprofen [Motrin] 800 mg PO TID PRN 01/07/19 06/25/19 Lacosamide [Vimpat] 50 mg PO BID 01/07/19 06/25/19 Ondansetron HCl [Zofran] 8 mg PO BID PRN 01/07/19 06/25/19 haloperidoL [Haldol] 2 mg PO HS 01/07/19 06/25/19 metFORMIN HCL [Glucophage] 850 mg PO BID 02/20/19 06/25/19 traZODone HCL [Desyrel] 200 mg PO HS 02/20/19 06/25/19 Atorvastatin [Lipitor] 10 mg PO HS 06/25/19 06/25/19 Verapamil Sr [Isoptin Sr] 180 mg PO HS 06/25/19 06/25/19 buPROPion HCL [Wellbutrin XL] 300 mg PO DAILY 06/25/19 06/25/19 Previous Rx's Medication Instructions Recorded Albuterol Inhaler (Mhu) [Ventolin 1 - 2 puff INHALATION RT-Q6H PRN 06/16/19 Hfa Inhaler (u)] #1 inhaler Dicyclomine [Bentyl] 20 mg PO QID #15 tablet 06/26/19 Dicyclomine [Bentyl] 20 mg PO QID #15 tablet 06/26/19 Albuterol Inhaler (Mhu) [Ventolin 1 - 2 puff INHALATION RT-Q6H PRN 7 10/29/19 Hfa Inhaler (Mhu)] Days #1 inhaler predniSONE [Deltasone] 40 mg PO DAILY 5 Days #10 tab 10/29/19 Cyclobenzaprine [Flexeril] 1 - 2 tab PO TID #15 tablet 05/12/20 Allergies Allergy/AdvReac Type Severity Reaction Status Date / Time No Known Allergies Allergy Verified 05/12/20 12:15 Review of Systems ROS Statement: Those systems with pertinent positive or pertinent negative responses have been documented in the HPI. ROS Other: All systems not noted in ROS Statement are negative. 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, migraine History of Any Multi-Drug Resistant Organisms: None Reported Past Surgical History: Ablation, Section, Cholecystectomy, Uterine Ablation Additional Past Surgical History / Comment(s): Andreas filter, D&C, c-sect x 2 Past Anesthesia/Blood Transfusion Reactions: No Reported Reaction Past Psychological History: Anxiety, Bipolar, Depression, PTSD, Schizoaffective Disorder Past Alcohol Use History: None Reported Past Drug Use History: Marijuana - Past Family History Mother Family Medical History: Pulmonary Embolus Father Family Medical History: No Reported History Brother(s) Family Medical History: No Reported History Son(s) Additional Family Medical History / Comment(s): autistic Daughter(s) Additional Family Medical History / Comment(s): adhd/odd General Exam - General Exam Comments Initial Comments: Constitutional: NAD, AOX3, Pt has pleasant affect. HEENT: NC/AT, trachea midline, neck supple, no lymphadenopathy. External ears appear normal, without discharge. Mucous membranes moist. EOM intact. There is no scleral icterus. No pallor noted. Cardiopulmonary: RRR, no murmurs, rubs or gallops, no JVD noted. Lungs CTAB in anterior and posterior zepeda. No peripheral edema. Abdominal exam: Abdomen soft and non-distended. Neuro: CN II-XII grossly intact. No nuchal rigidity. MSK: No posterior calf tenderness bilaterally, homans sign negative bilaterally. Sensation intact in upper and lower extremities. Full active ROM in upper and lower extremities, 5/5 stregnth. 5 out of 5 strength psoas quadriceps muscles. Heel to toe walking intact. Extremities warm and well perfused. Limitations: no limitations Course Vital Signs 05/12/20 12:12 Temperature 98.5 F Pulse Rate 83 Respiratory 20 Rate Blood Pressure 117/76 O2 Sat by Pulse 98 Oximetry Medical Decision Making - Medical Decision Making 39-year-old female patient proceeded evaluation of lumbar back pain. Happened 3 days ago she's been having some muscle tightness and pain. Denies any radiculopathy. Declines any imaging today. Patient administered Toradol and then sent home with Tylenol 3 starter pack. Some fluctuant was prescribed patient's pharmacy. Patient be discharged to follow up with primary care provider tomorrow and return to ER with any worsening symptoms. Case discussed with Dr. Monroy. Disposition Clinical Impression: Musculoskeletal strain, Low back pain Disposition: HOME SELF-CARE Condition: Stable Instructions (If sedation given, give patient instructions): Acute Low Back Pain (ED) Additional Instructions: follow-up with primary care provider tomorrow. Return to ER with any worsening symptoms. Prescriptions: Cyclobenzaprine [Flexeril] 1 - 2 tab PO TID #15 tablet Is patient prescribed a controlled substance at d/c from ED?: No Referrals: Juan Hernandez MD [Primary Care Provider] - 1-2 days
== END 2020-05-12 12:34 | disposition home or self-care (01) ==
LOC: EC 12:11
DX: S39.012A Strain of muscle, fascia and tendon of lower back, initial encounter (principal); F41.9 Anxiety disorder, unspecified; F31.9 Bipolar disorder, unspecified; F25.9 Schizoaffective disorder, unspecified; K21.9 Gastro-esophageal reflux disease without esophagitis; M19.90 Unspecified osteoarthritis, unspecified site; Z79.899 Other long term (current) drug therapy; Z86.69 Personal history of other diseases of the nervous system and sense organs; X50.0XXA Overexertion from strenuous movement or load, initial encounter
CPT/HCPCS: 99283; 96372; J1885

== ENCOUNTER 2020-08-30 14:45 | Emergency (ER) | payer OTHER ==
[2020-08-30 14:51] VITALS: BP 132/82; PULSE 89; RESP 18; TEMP 98.8
--- NOTE | 2020-08-30 15:48 | ED ---
Female Urogenital HPI - General Chief complaint: Vaginal Bleeding Stated complaint: Vaginal Bleeding Time Seen by Provider: 08/30/20 15:28 Source: family Mode of arrival: ambulatory Limitations: no limitations - History of Present Illness Initial comments: Patient is a 39-year-old female, with history of uterine ablation, presenting to the emergency Department with complaints of vaginal bleeding. She states that she is not affecting her period for 2 more days and is concerned for the heavy flow of her menstrual cycle. She is also having some mild lower abdominal cramping. She states she lives about 80 minutes away and does not remember her BRIDGE WORKER's name. She denies any fever or chills, no chest pain or shortness of breath. She has no further complaints. Last Menstrual Period: 08/01/20 - Related Data Home Medications Medication Instructions Recorded Confirmed Cyclobenzaprine [Flexeril] 10 mg PO TID 05/18/17 06/25/19 SUMAtriptan SUCCINATE [Imitrex] 100 mg PO BID PRN 05/31/18 06/25/19 Benztropine Mesylate [Cogentin] 1 mg PO DAILY PRN 01/07/19 06/25/19 Ibuprofen [Motrin] 800 mg PO TID PRN 01/07/19 06/25/19 Lacosamide [Vimpat] 50 mg PO BID 01/07/19 06/25/19 haloperidoL [Haldol] 2 mg PO HS 01/07/19 06/25/19 ondansetron HCL [Zofran] 8 mg PO BID PRN 01/07/19 06/25/19 metFORMIN HCL [Glucophage] 850 mg PO BID 02/20/19 06/25/19 traZODone HCL [Desyrel] 200 mg PO HS 02/20/19 06/25/19 Atorvastatin [Lipitor] 10 mg PO HS 06/25/19 06/25/19 Verapamil Sr [Isoptin Sr] 180 mg PO HS 06/25/19 06/25/19 buPROPion HCL [Wellbutrin XL] 300 mg PO DAILY 06/25/19 06/25/19 Previous Rx's Medication Instructions Recorded Albuterol Inhaler (Mhu) [Ventolin 1 - 2 puff INHALATION RT-Q6H PRN 06/16/19 Hfa Inhaler (Mhu)] #1 inhaler Dicyclomine [Bentyl] 20 mg PO QID #15 tablet 06/26/19 Dicyclomine [Bentyl] 20 mg PO QID #15 tablet 06/26/19 Albuterol Inhaler (Mhu) [Ventolin 1 - 2 puff INHALATION RT-Q6H PRN 7 10/29/19 Hfa Inhaler (Mhu)] Days #1 inhaler predniSONE [Deltasone] 40 mg PO DAILY 5 Days #10 tab 10/29/19 Cyclobenzaprine [Flexeril] 1 - 2 tab PO TID #15 tablet 05/12/20 Allergies Allergy/AdvReac Type Severity Reaction Status Date / Time No Known Allergies Allergy Verified 08/30/20 14:51 Review of Systems ROS Statement: Those systems with pertinent positive or pertinent negative responses have been documented in the HPI. ROS Other: All systems not noted in ROS Statement are negative. 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, migraine History of Any Multi-Drug Resistant Organisms: None Reported Past Surgical History: Ablation, Section, Cholecystectomy, Uterine Ablation Additional Past Surgical History / Comment(s): Perryman filter, D&C, c-sect x 2 Past Anesthesia/Blood Transfusion Reactions: No Reported Reaction Past Psychological History: Anxiety, Bipolar, Depression, PTSD, Schizoaffective Disorder Smoking Status: Current every day smoker Past Alcohol Use History: None Reported Past Drug Use History: Marijuana - Past Family History Mother Family Medical History: Pulmonary Embolus Father Family Medical History: No Reported History Brother(s) Family Medical History: No Reported History Son(s) Additional Family Medical History / Comment(s): autistic Daughter(s) Additional Family Medical History / Comment(s): adhd/odd General Exam - General Exam Comments Initial Comments: GENERAL: Patient is well-developed and well-nourished. Patient is nontoxic and in no acute distress. HEAD: Atraumatic, normocephalic. EYES: Pupils equal round and reactive to light, extraocular movements intact, sclera anicteric, conjunctiva are normal. Eyelids were unremarkable. ENT: TNares patent, oropharynx clear without exudates. Moist mucous membranes. NECK: Normal range of motion, supple without lymphadenopathy or JVD. LUNGS: Unlabored respirations. Breath sounds clear to auscultation bilaterally and equal. No wheezes rales or rhonchi. HEART: Regular rate and rhythm without murmurs, rubs or gallops. : Patient declined. * Pateint declined the rest of my physical exam. Limitations: no limitations Course Vital Signs 08/30/20 14:48 Temperature 98.8 F Pulse Rate 89 Respiratory 18 Rate Blood Pressure 132/82 O2 Sat by Pulse 100 Oximetry Medical Decision Making - Medical Decision Making She is a 39-year-old female here for vaginal bleeding that is 2 days earlier and her expected menstrual cycle. She does have history of uterine ablation. She does have some mild cramping. Patient stated that she really needs to leave and get back to her daughter. Patient states her pain is minimal and her bleeding has slowed down and she is declining the rest of my physical exam. I did recommend checking a urine sample and performing a vaginal exam however patient declined. She is leaving AMA. Patient can follow up with her BRIDGE WORKER. Disposition Clinical Impression: Dysfunctional uterine bleeding Disposition: Left Against Medical Advice Condition: Stable Instructions (If sedation given, give patient instructions): Dysmenorrhea (ED) Additional Instructions: Please return to the Emergency Department if symptoms worsen or any other concerns. Follow up with your regular family doctor or [employer] if symptoms persist. Is patient prescribed a controlled substance at d/c from ED?: No Referrals: Juan Hernandez MD [Primary Care Provider] - 1-2 days
== END 2020-08-30 15:59 | disposition left against medical advice (07) ==
LOC: EC 14:45
DX: N93.8 Other specified abnormal uterine and vaginal bleeding (principal); F41.9 Anxiety disorder, unspecified; F31.9 Bipolar disorder, unspecified; F25.9 Schizoaffective disorder, unspecified; F17.200 Nicotine dependence, unspecified, uncomplicated; Z79.84 Long term (current) use of oral hypoglycemic drugs; Z79.899 Other long term (current) drug therapy; Z86.718 Personal history of other venous thrombosis and embolism
CPT/HCPCS: 99283

== ENCOUNTER 2020-11-18 23:10 | Emergency (ER) | payer OTHER ==
[2020-11-18 23:14] VITALS: BP 145/80; PULSE 73; RESP 19; TEMP 98.1
[2020-11-18] MEDS ORDERED: HYDROcodone/APAP 7.5-325MG 1 EACH TAB PO ONE (23:24)
--- NOTE | 2020-11-18 23:25 | ED ---
Lower Extremity Injury HPI - General Chief Complaint: Extremity Injury, Lower Stated Complaint: Knee Pain Time Seen by Provider: 11/18/20 23:15 Source: patient Mode of arrival: ambulatory - History of Present Illness Initial Comments: 39-year-old feel presenting today for chief complaint of left knee pain. Patient states she has had left knee pain for months. Patient states that she has had an MRI taken but does not know the results. Patient denies any falls or trauma since the MRI. 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 Patient denies a weakness sensation deficits coolness or pallor of the extremity. Patient denies any swelling. Patient no additional complaints patient states she does not take any pain medications only [id number] ibuprofen or Tylenol. Remaining review systems negative upon arrival patient appears well and nontoxic no acute distress - Related Data Home Medications Medication Instructions Recorded Confirmed Cyclobenzaprine [Flexeril] 10 mg PO TID 05/18/17 06/25/19 SUMAtriptan SUCCINATE [Imitrex] 100 mg PO BID PRN 05/31/18 06/25/19 Benztropine Mesylate [Cogentin] 1 mg PO DAILY PRN 01/07/19 06/25/19 Ibuprofen [Motrin] 800 mg PO TID PRN 01/07/19 06/25/19 Lacosamide [Vimpat] 50 mg PO BID 01/07/19 06/25/19 haloperidoL [Haldol] 2 mg PO HS 01/07/19 06/25/19 ondansetron HCL [Zofran] 8 mg PO BID PRN 01/07/19 06/25/19 metFORMIN HCL [Glucophage] 850 mg PO BID 02/20/19 06/25/19 traZODone HCL [Desyrel] 200 mg PO HS 02/20/19 06/25/19 Atorvastatin [Lipitor] 10 mg PO HS 06/25/19 06/25/19 Verapamil Sr [Isoptin Sr] 180 mg PO HS 06/25/19 06/25/19 buPROPion HCL [Wellbutrin XL] 300 mg PO DAILY 06/25/19 06/25/19 Previous Rx's Medication Instructions Recorded Albuterol Inhaler (Mhu) [Ventolin 1 - 2 puff INHALATION RT-Q6H PRN 06/16/19 Hfa Inhaler (Mhu)] #1 inhaler Dicyclomine [Bentyl] 20 mg PO QID #15 tablet 06/26/19 Dicyclomine [Bentyl] 20 mg PO QID #15 tablet 06/26/19 Albuterol Inhaler (Mhu) [Ventolin 1 - 2 puff INHALATION RT-Q6H PRN 7 10/29/19 Hfa Inhaler (u)] Days #1 inhaler predniSONE [Deltasone] 40 mg PO DAILY 5 Days #10 tab 10/29/19 Cyclobenzaprine [Flexeril] 1 - 2 tab PO TID #15 tablet 05/12/20 Allergies Allergy/AdvReac Type Severity Reaction Status Date / Time No Known Allergies Allergy Verified 11/18/20 23:15 Review of Systems ROS Statement: Those systems with pertinent positive or pertinent negative responses have been documented in the HPI. ROS Other: All systems not noted in ROS Statement are negative. 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, migraine History of Any Multi-Drug Resistant Organisms: None Reported Past Surgical History: Ablation, Section, Cholecystectomy, Uterine Ablation Additional Past Surgical History / Comment(s): Andreas filter, D&C, c-sect x 2 Past Anesthesia/Blood Transfusion Reactions: No Reported Reaction Past Psychological History: Anxiety, Bipolar, Depression, PTSD, Schizoaffective Disorder Smoking Status: Current every day smoker Past Alcohol Use History: None Reported Past Drug Use History: Marijuana - Past Family History Mother Family Medical History: Pulmonary Embolus Father Family Medical History: No Reported History Brother(s) Family Medical History: No Reported History Son(s) Additional Family Medical History / Comment(s): autistic Daughter(s) Additional Family Medical History / Comment(s): adhd/odd General Exam - General Exam Comments Initial Comments: General: The patient is awake and alert, in no distress Eye: +3 mm pupils are equal, round and reactive to light, extra-ocular movements are intact. No nystagmus. There is normal conjunctiva bilaterally. No signs of icterus. Cardiovascular: There is a regular rate and rhythm. No murmur, rub or gallop is appreciated. Respiratory: Lungs are clear to auscultation, respirations are non-labored, breath sounds are equal. No wheezes, stridor, rales, or rhonchi. Musculoskeletal: Normal inspection of the knees equally person bilaterally no soft tissue swelling or redness able patient able to flex extend the knee as well as weight-bear. Normal ROM, no tenderness. Strength 5/5. Sensation intact proximal distal to injury site. DP ppulses equal bilaterally 2+. Neurological: A&O x 3. CN II-XII intact grossly, There are no obvious motor or sensory deficits. Coordination appears grossly intact. Speech is normal. Skin: Skin is warm and dry and no rashes or lesions are noted. Psychiatric: Cooperative, appropriate mood & affect, normal judgment. Course Vital Signs 11/18/20 23:12 Temperature 98.1 F Pulse Rate 73 Respiratory 19 Rate Blood Pressure 145/80 O2 Sat by Pulse 97 Oximetry Medical Decision Making - Medical Decision Making Exam WNL. patient appears well. weight bearing. has brace with her. MRI already obtained outpatient no new injury. Pt treated symptomatically and is to f/u with her orthopedic surgeon. pt discharged appearing well. Attending [facility] Disposition Clinical Impression: Chronic pain of left knee Disposition: HOME SELF-CARE Condition: Good Instructions (If sedation given, give patient instructions): Knee Pain (ED) Additional Instructions: Please use medication as discussed. Please follow-up with family doctor in the next 2 days.. Please return to emergency room if the symptoms increase or worsen or for any other concerns. Is patient prescribed a controlled substance at d/c from ED?: No Referrals: Juan Hernandez MD [Primary Care Provider] - 1-2 days Time of Disposition: 23:24
== END 2020-11-18 23:34 | disposition home or self-care (01) ==
LOC: EC 23:10
DX: M25.562 Pain in left knee (principal); G89.29 Other chronic pain; F20.9 Schizophrenia, unspecified; F32.9 Major depressive disorder, single episode, unspecified; F17.200 Nicotine dependence, unspecified, uncomplicated; F12.90 Cannabis use, unspecified, uncomplicated; K21.9 Gastro-esophageal reflux disease without esophagitis; M19.90 Unspecified osteoarthritis, unspecified site; Z86.718 Personal history of other venous thrombosis and embolism; Z86.711 Personal history of pulmonary embolism; Z90.49 Acquired absence of other specified parts of digestive tract; Z79.84 Long term (current) use of oral hypoglycemic drugs
CPT/HCPCS: 99283